=== PATIENT | female | born 1975 | race Caucasian/White ===

== ENCOUNTER 2019-12-31 08:03 | Emergency (ER) | payer SELFPAY ==
[~2019-12-31] VITALS: Ht 182.9 cm; Wt 86.2 kg
[~2019-12-31 08:03] MED LIST: EXCEDRIN; EXCEDRIN MIGRA1 EAC3; LEXAPRO; LEXAPRO10 MG PO; LISINOPRIL; LISINOPRIL-HCT1 EAC1 PO
[2019-12-31] MEDS ORDERED: MORPHINE SULFATE INJ 4 MG/ML INJ 1ML IV STA (08:17)
[2019-12-31] MEDS ORDERED: PANTOPRAZOLE 40 MG 10ML VIAL IV STA (08:17)
[2019-12-31] MEDS ORDERED: SODIUM CHLORIDE 0.9% 1000ML 1,000 ML IV STA ×2 (08:17→11:03)
[2019-12-31] MEDS ORDERED: ONDANSETRON HCL INJ 2MG/ML 2ML 2 MG/ML VIAL IV STA (08:17)
[2019-12-31] MEDS ORDERED: DIATRIZOATE MEGL/DIATRIZOA SOD 30 ML BTL PO ONE (08:48)
[2019-12-31 09:03] LABS: BASOPHILS % 0.4 % (0.0-1.0); EOSINOPHILS # (AUTO) 0.2 (0.0-0.4); EOSINOPHILS % 2.6 % (0.0-6.0); HEMATOCRIT 31.2 % (34.2-44.1); HEMOGLOBIN 8.1 g/dL (12.0-16.0); LYMPHOCYTES # (AUTO) 1.6 (1.0-3.2); LYMPHOCYTES % 18.1 % (18.0-39.1); MEAN CORPUSCULAR HEMOGLOBIN 17.2 pg (28-32); MEAN CORPUSCULAR VOLUME 66.2 fL (81-99); MONOCYTES # (AUTO) 0.5 (0.2-0.8); MONOCYTES % 5.5 % (4.4-11.3); NEUTROPHILS # (AUTO) 6.6 (2.1-6.9); NEUTROPHILS % 72.8 % (38.7-80.0); PLATELET COUNT 207 x10e3/uL (140-360); RED BLOOD COUNT 4.71 x10e6/uL (3.6-5.1); RED CELL DISTRIBUTION WIDTH 20.5 % (11.7-14.4)
[2019-12-31 09:12] LABS: INR 0.94
[2019-12-31 09:13] LABS: PARTIAL THROMBOPLASTIN TIME 29.8 seconds (23.8-35.5)
[2019-12-31 09:31] LABS: PREGNANCY TEST, URINE NEGATIVE (NEGATIVE)
--- NOTE | 2019-12-31 09:31 | Emergency Department Note ---
History of Present Illnes History of Present Illness Chief Complaint: Back Pain History of Present Illness This is a 44 year old female Patient in from home with complaints of back pain that radiates down both her legs, difficulty with urination, and abdominal distension for the last 3 days. Denies history of kidney stones. Patient reports that she tried to make an appointment with her PCP but was unable to get in to see him. Patient is anxious, tearful and emotional in triage. Patient ambulatory with even and steady gait without assistance. No acute distress noted. Historian: Patient Arrival Mode: Car Calculus Teacher Required: No Onset (how long ago): day(s) (3) Location: lower back, abdomen Quality: pain Radiation: Reports extremity (back pain to both legs) Severity: severe Onset quality: gradual Timing of current episode: constant Progression: worsening Chronicity: new Context: Denies recent illness Relieving factors: none Exacerbating factors: none Associated symptoms: Reports denies other symptoms; Denies chest pain, Denies cough, Denies shortness of breath, Denies weakness Treatments prior to arrival: NSAID (ibuprofen) Past Medical/Family History Physician Review I have reviewed the patient's past medical and family history. Any updates have been documented here. Past Medical History Recent Fever: No Clinical Suspicion of Infectio: Yes New/Unexplained Change in Ment: No Past Medical History: Migraines, Anxiety, Depression Other Medical History: IBS, endometriosis, polycystic ovarian, Past Surgical History: Cholecysctectomy Other Surgery: SINUS Social History Smoking Cessation: Never Smoker Counseling Performed: No Alcohol Use: None Any Illegal Drug Use: No TB Exposure/Symptoms: No Physically hurt or threatened: No Family History Family history of heart diseas: No Other Last Tetanus: OOD Any Pre-Existing Lines (PICC,: No Review of Systems Review of Systems Constitutional: Reports no symptoms EENTM: Reports no symptoms Cardiovascular: Reports no symptoms Respiratory: Reports no symptoms Gastrointestinal: Reports as per HPI, Reports abdominal pain, Reports other (distended) Genitourinary: Reports as per HPI, Reports other (difficulty urinating - says she has to "push it out") Musculoskeletal: Reports as per HPI, Reports back pain Integumentary: Reports no symptoms Neurological: Reports no symptoms Psychological: Reports no symptoms Endocrine: Reports no symptoms Hematological/Lymphatic: Reports no symptoms Physical Exam Related Data Allergies: Coded Allergies: tramadol (Verified Allergy, Severe, hives, 10/13/20) Penicillins (Verified Allergy, Mild, 01/31/08) ketorolac (Verified Allergy, Mild, 01/31/08) paroxetine (Verified Allergy, Mild, 01/31/08) prochlorperazine (Verified Allergy, Mild, 01/31/08) Triage Vital Signs Vital Signs Date Time Temp Pulse Resp B/P (MAP) Pulse Ox O2 Delivery O2 Flow Rate FiO2 12/31/19 08:05 97.8 111 18 186/108 100 Room Air Vital signs reviewed: Yes Physical Exam CONSTITUTIONAL HENT EYES NECK PULMONARY CARDIOVASCULAR GASTROINTESTINAL GENITOURINARY SKIN MUSCULOSKELETAL NEUROLOGICAL PSYCHOLOGICAL Results Laboratory Result Diagram: 12/31/19 0817 Laboratory Laboratory Tests Test 12/31/19 08:17 White Blood Count 9.07 x10e3/uL (4.8-10.8) Red Blood Count 4.71 x10e6/uL (3.6-5.1) Hemoglobin 8.1 g/dL (12.0-16.0) Hematocrit 31.2 % (34.2-44.1) Mean Corpuscular Volume 66.2 fL (81-99) Mean Corpuscular Hemoglobin 17.2 pg (28-32) Mean Corpuscular Hemoglobin Concent 26.0 g/dL (31-35) Red Cell Distribution Width 20.5 % (11.7-14.4) Platelet Count 207 x10e3/uL (140-360) Neutrophils (%) (Auto) 72.8 % (38.7-80.0) Lymphocytes (%) (Auto) 18.1 % (18.0-39.1) Monocytes (%) (Auto) 5.5 % (4.4-11.3) Eosinophils (%) (Auto) 2.6 % (0.0-6.0) Basophils (%) (Auto) 0.4 % (0.0-1.0) Neutrophils # (Auto) 6.6 (2.1-6.9) Lymphocytes # (Auto) 1.6 (1.0-3.2) Monocytes # (Auto) 0.5 (0.2-0.8) Eosinophils # (Auto) 0.2 (0.0-0.4) Basophils # (Auto) 0.0 (0.0-0.1) Absolute Immature Granulocyte (auto 0.05 x10e3/uL (0-0.1) Prothrombin Time 13.0 seconds (11.9-14.5) Prothromb Time International Ratio 0.94 Activated Partial Thromboplast Time 29.8 seconds (23.8-35.5) Lab results reviewed: Yes Imaging Imaging results reviewed: Yes Impressions CT ABD/PELVIS IMPRESSION: No acute intra-abdominal or pelvic CT abnormalities. No urolithiasis per clinical query. Greater than expected soft tissue density in the ascending colon at the ileocecal valve, which may reflect adherent stool. However, gastroenterology referral for direct visualization is suggested to exclude presence of a polypoid lesion. No adjacent lymphadenopathy or findings to suggest bowel obstruction. Signed by: Dr. Get Kramer M.D. on 12/31/2019 10:35 AM Assessment & Plan Medical Decision Making MDM BACK PAIN/ABD PAIN - CHECK CBC, CHEM, AMYLASE/LIPASE, CARDIACS, PREG, UA/CX, BLOOD CX'S, CT ABD/PELVIS - EVAL SCIATICA, PANCREATITIS, ABD MASS, OBSTIPATION, Reassessment Reassessment PT WITH MILD RHABDOMYOLYSIS - OFFERED ADMISSION, SHE DECLINES SO WILL GIVE 2 L NS BOLUS AND REPEAT CPP. DC HOME, TYL #3, MEDROL DOSE DEBORA, ROBAXIN, F/U PCP Assessment & Plan Final Impression: (1) Back pain Depart Disposition: HOME, SELF-CARE Last Vital Signs Date Time Temp Pulse Resp B/P (MAP) Pulse Ox O2 Delivery O2 Flow Rate FiO2 12/31/19 08:05 97.8 111 18 186/108 100 Room Air Home Meds Reported Medications Aspirin/Acetaminophen/Caffeine (EXCEDRIN MIGRAINE CAPLET) 1 Each Tablet 09/08/14 Lisinopril/Hydrochlorothiazide (LISINOPRIL-HCTZ 20-25 MG TAB) 1 Each Tablet, 20- 25 MG PO DAILY 09/08/14 Escitalopram Oxalate (LEXAPRO) 10 Mg Tablet, 20 MG PO DAILY, #30 TAB 09/08/14 Medications in the ED Pantoprazole Sodium 40 mg ONCE STAT IV Last administered on 12/31/19at 09:25; Admin Dose 40 MG; Start 12/31/19 at 08:17; Stop 12/31/19 at 08:37; Status DC Morphine Sulfate 4 mg ONCE STAT IV Last administered on 12/31/19at 09:25; Admin Dose 4 MG; Start 12/31/19 at 08:17; Stop 12/31/19 at 08:36; Status DC Ondansetron HCl 4 mg ONCE STAT IV Last administered on 12/31/19 09:26; Admin Dose 4 MG; Start 12/31/19 at 08:17; Stop 12/31/19 at 08:37; Status DC Sodium Chloride 1,000 ml @ 0 mls/hr Q0M STAT IV Last administered on 12/31/19at 09:26; Admin Dose 1,000 MLS/HR; Start 12/31/19 at 08:17; Stop 12/31/19 at 08:24; Status DC Diatrizoate Meglum/ Diatrizoate Sod 30 ml STK-MED ONCE PO ; Start 12/31/19 at 08:48; Stop 12/31/19 at 08:41; Status DC EAN MELTON MD Dec 31, 2019 09:31
[2019-12-31 09:32] LABS: ALANINE AMINOTRANSFERASE 25 IU/L (0-55); ALBUMIN 3.7 g/dL (3.5-5.0); ALBUMIN/GLOBULIN RATIO 1.1 (0.8-2.0); ALKALINE PHOSPHATASE 94 IU/L (40-150); AMPHETAMINES SCREEN,URINE NEGATIVE (NEGATIVE); AMYLASE 33 U/L (25-125); ANION GAP 14.6 mmol/L (8-16); BENZODIAZEPINES SCREEN,URINE POSITIVE (NEGATIVE); BLOOD UREA NITROGEN 9 mg/dL (7-26); BUN/CREATININE RATIO 10 (6-25); CALCIUM 8.9 mg/dL (8.4-10.2); CARBON DIOXIDE 28 mmol/L (22-29); CHLORIDE 102 mmol/L (98-107); CREATINE KINASE 1061 IU/L (29-168); CREATININE, SERUM 0.86 mg/dL (0.57-1.11); EST GLOMERULAR FILTRATION RATE > 60 ML/MIN (60-); GLUCOSE 119 mg/dL (74-118); LIPASE 25 U/L (8-78); MAGNESIUM 2.1 MG/DL (1.3-2.1); PHENCYCLIDINE SCREEN,URINE NEGATIVE (NEGATIVE); POTASSIUM 3.6 mmol/L (3.5-5.1); SODIUM 141 mmol/L (136-145)
--- NOTE | 2019-12-31 09:32 | Diagnostic Imaging Report ---
TECHNIQUE: Frontal view of the chest. INDICATION: ^ABD/BACK PAIN, LE EDEMA ^[id number] ^[id number] COMPARISON: None DISCUSSION: Limited evaluation due to portable technique. Lines and hardware: A wire is identified overlying the left hemithorax and continuing above the [id number] and inferior to the field of view. Heart and mediastinum: Stable. Lungs and pleura: No focal airspace consolidation. No pleural effusion. No pneumothorax. Soft tissues and bones: No acute abnormality. IMPRESSION: Negative for acute intrathoracic process. Signed by: Basim Richardson MD on 12/31/2019 9:29 AM
[2019-12-31 09:36] LABS: BILIRUBIN,URINE NEGATIVE (NEGATIVE); CLARITY,URINE CLEAR (CLEAR); COLOR,URINE YELLOW (YELLOW); KETONES,URINE NEGATIVE (NEGATIVE); LEUKOCYTE ESTERASE ,URINE NEGATIVE (NEGATIVE); NITRITE,URINE NEGATIVE (NEGATIVE); PROTEIN,URINE DIPSTICK NEGATIVE (NEGATIVE); URINE UROBILINOGEN 0.2 mg/dL (0.2 - 1)
[2019-12-31 09:38] LABS: EPITHELIAL CELLS,URINE RARE /LPF; RBC,URINE 0-5 /HPF (0-5); WBC,URINE (MAN) 0-5 /HPF (0-5)
--- NOTE | 2019-12-31 10:39 | Diagnostic Imaging Report ---
EXAMINATION: CT of the abdomen and pelvis with and without contrast. TECHNIQUE: Spiral CT images of the abdomen and pelvis were performed from the lung bases to the lesser trochanters before and after the intravenous administration of 100 cc Isovue-370. Coronal and sagittal reformatted images were obtained. COMPARISON: Chest radiograph same day CLINICAL HISTORY:Abdominal pain, back pain, dysuria DISCUSSION: ABDOMEN/PELVIS: LOWER THORAX:Trace subsegmental atelectasis in the dependent lower lobes. Lung bases are otherwise unremarkable. HEPATOBILIARY: No focal hepatic lesions. No intra-or extrahepatic biliary ductal dilation. The gallbladder has been removed. SPLEEN: No splenomegaly or focal splenic lesion. PANCREAS: No focal masses or ductal dilatation. ADRENALS: No adrenal nodules. KIDNEYS/URETERS: No hydronephrosis, calculi, or solid or cystic mass lesions. PELVIC ORGANS/BLADDER: Urinary bladder is well distended and unremarkable. Uterus is anteflexed and appears normal. No adnexal mass. PERITONEUM/RETROPERITONEUM: No ascites or pneumoperitoneum. LYMPH NODES: No pelvic sidewall, retroperitoneal, or mesenteric lymphadenopathy. VESSELS: Abdominal aorta, major branch vessels, and iliac arterial systems are patent. Portal vein, splenic vein, and central superior mesenteric vein are patent. GI TRACT: The large bowel shows no evidence of distention or wall thickening. A large amount of fecal material is noted within the descending and sigmoid colon. The appendix is unremarkable. There is greater than expected soft tissue prominence at the region of the ileocecal valve, which measures approximately 4 x 3.6 cm as seen on series 3 image 107. There is no small bowel dilatation to suggest obstruction. BONES AND SOFT TISSUE: No osseous destructive lesions. Degenerative disc changes and facet arthropathy L5-S1. Electronic device body lies in the left gluteal subcutaneous fat. Lead courses through the fat of the lower back to the left of midline before terminating off the scan field. Otherwise no focal soft tissue abnormalities. IMPRESSION: No acute intra-abdominal or pelvic CT abnormalities. No urolithiasis per clinical query. Greater than expected soft tissue density in the ascending colon at the ileocecal valve, which may reflect adherent stool. However, gastroenterology referral for direct visualization is suggested to exclude presence of a polypoid lesion. No adjacent lymphadenopathy or findings to suggest bowel obstruction. Signed by: Dr. Get Kramer M.D. on 12/31/2019 10:35 AM
--- OUTSIDE RECORDS SUMMARY | 2019-12-31 10:49 | XMS REPORT | Continuity of Care Document ---
Author Author [facility] t Organization [facility] Address [address] [place] [address] Phone Unavailable Care Team Providers Care Press Leader Name Role Phone GERONIMO Gaurang EAN Attphys Unavailable Aliya Vigil Attphys Doctor Unassigned, Name No Attphys Unavailable Ari Wahl Attphys Larry Whitten Attphys [phone] Koby Geronimo Attphys Payers Payer Name Policy Type Policy Number Effective Date Expiration Date S ource Problems Condition Name Condition Details Condition Category Status Onset Date Resolution Date Last Treatment Date Treating Clinician Comments Source ABD PAIN ABD PAIN Active 03/02/2016 [facility] [place] Diagnosis Active 2016-03-02 00:00:00 2016-03-26 06:18:00 Chyna Marshall FALL FALL Active 07/22/2012 [facility] Diagnosis Active 2012-07-22 00:00:00 2012-07-22 15:55:00 [facility] MRSA MRSA Active 06/09/2011 Problem 07/24/2012 1MRSA in groin abscess on 06/09/2011.2MRSA PCR+ on 06/09/2011.3Problem added by Discern Expert. [facility] Problem Active 2011-06-09 00:00:00 2012-07-24 20:58:59 [facility] Methicillin resistant Staphylococcus aureus (organism) Methicillin resistant Staphylococcus aureus (organism) Active 06/09/2011 Problem 03/05/2016 MRSA in groin abscess on 06/09/2011.MRSA PCR+ on 06/09/2011.Problem added by Discern Expert. [facility] Problem Active 2011-06-09 00:00:00 2016-03-05 04:47:26 [facility] MULTIPLE ABSCESSES MULT IPLE ABSCESSES Active 06/09/2011 [facility] Diagnosis Active 2011-06-09 00:00:00 2011-06-10 19:36:00 [facility] CELLULITIS, ABSCESS CELL ULITIS, ABSCESS Active 06/08/2011 [facility] Diagnosis Active 2011-06-08 00:45:00 2011-06-21 21:50:00 [facility] Insomnia (disorder) Inso mnia (disorder) Active 09/23/2008 Problem 03/05/2016 Data migrated from [employer] on 08/19/14.Data migrated from [employer] on 08/19/14. [facility] Problem Active 2008-09-23 00:00:00 2016-03-05 04:47:26 [facility] Cervico-occipital neuralgia (finding) Cervico-occipital neuralgia (finding) Active 06/02/2008 Problem 03/05/2016 Data migrated from [employer] on 08/19/14.Data migrated from [employer] on 08/19/14. [facility] Problem Active 2008-06-02 00:00:00 2016-03-05 04:47:26 [facility] Chronic pain syndrome (disorder) Chronic pain syndrome (disorder) Active 06/02/2008 Problem 03/05/2016 Data migrated from [employer] on 08/19/14.Data migrated from [employer] on 08/19/14. [facility] Problem Active 2008-06-02 00:00:00 2016-03-05 04:47:26 Chyna Marshall Endometriosis (disorder) Endo metriosis (disorder) Resolved Problem 03/05/2016 [facility] Problem Resolved 2016-03-05 04:47:26 Chyna Marshall Migraine (disorder) Migr shelia (disorder) Resolved Problem 03/05/2016 [facility] Problem Resolved 2016-03-05 0 4:47:26 Chyna Marshall Anxiety Anxi ety Active Problem 07/24/2012 [facility] Problem Active 2012-07-24 20:58:59 [facility] Rol[place] Depression Depr ession Active Problem 07/24/2012 [facility] Problem Active 2012-07-24 20:58:59 Ma morial [place] Endometriosis Endo metriosis Active Problem 06/18/2011 [facility] Problem Active 2011-06-18 08:36:30 Chyna Marshall HTN - Hypertension HTN - Hypertension Active Problem 06/18/2011 [facility] Problem Active 2011-06-18 08:36:30 Chyna Looann Irritable bowel syndrome Irri table bowel syndrome Active Problem 07/24/2012 [facility] Problem Active 2012-07-24 20:58:5 9 Chyna Marshall Endometriosis Endo metriosis Active Problem 07/24/2012 [facility] Problem Active 2012-07-24 20:58:59 Chyna Marshall HTN - Hypertension HTN - Hypertension Active Problem 07/24/2012 [facility] Problem Active 2012-07-24 20:58:59 Chyna Marshall 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 [facility] Problem Active 2016-03-05 04:47:26 Sadie Marshall Benign hypertension (disorder) Benign hypertension (disorder) Active Problem 03/05/2016 Data migrated from [employer] on 08/19/14.Data migrated from [employer] on 08/19/14. [facility] Problem Active 2016-03-05 04:47:26 Zhen Marshall Depression (finding) Depr ession (finding) Active Problem 03/05/2016 [facility] Problem Active 2016-03-05 04:47:26 Chyna Marshall Depressive disorder (disorder) Depressive disorder (disorder) Active Problem 03/05/2016 Data migrated from [employer] on 08/19/14.Data migrated from [employer] on 08/19/14. [facility] Problem Active 2016-03-05 04:47:26 Zhen Marshall Headache (finding) Head ache (finding) Active Problem 03/05/2016 Data migrated from [employer] on 08/19/14.Data migrated from [employer] on 08/19/14. [facility] Problem Active 2016-03-05 04:47:26 Chyna Marshall Hypertensive disorder, systemic arterial (disorder) Hypertensive disorder, systemic arterial (disorder) Active Problem 03/05/2016 [facility] Problem Active 2016-03-05 04:47:26 Chyna Marshall Irritable colon (disorder) Irr itable colon (disorder) Active Problem 03/05/2016 [facility] Problem Active 2016-03-05 04:47:26 [facility] [address] CELLULITIS NOS CELL ULITIS NOS Active [facility] Diagnosis Active 2011-06-21 21:50:00 Chyna Marshall SOB SOB Active [facility] Diagnosis Active 2015-04-30 15:33:00 [facility] Discharge Diagnosis: Acute headache Discharge Diagnosis: Acute headache 03/02/2016 03/05/2016 [facility] Problem 2016-03-02 06:00:00 2016-03-05 04:47:26 2016-03-05 04:47:26 Denise Marshall Allergies, Adverse Reactions, Alerts Allergy Name Allergy Type Status Severity Reaction(s) Onset Date Inacti ve Date Treating Clinician Comments Source prochlorperazine edisylate DA Active MO 2019-05-22 00:00:0 0 [facility] prochlorperazine maleate DA Active MO 2019-05-22 00:00:00 [facility] ketorolac tromethamine DA Active U 2019-05-22 00:00:00 [facility] Penicillins DA Active MO 2019-05-22 00:00:00 [facility] aspirin DA Active MO 2019-05-22 00:00:00 [facility] tramadol DA Active U 2019-05-22 00:00:00 [facility] metoclopramide DA Active U 2019-05-22 00:00:00 [facility] prochlorperazine edisylate DA Active MO 2017-09-27 00:00:0 [facility] pro[facility] maleate DA Active MO 2017-09-27 00:00:00 [facility] ketorolac tromethamine DA Active U 2017-09-27 00:00:00 [facility] Penicillins DA Active MO 2017-09-27 00:00:00 [facility] aspirin DA Active [place] 2017-09-27 00:00:00 [facility] tramadol DA Active U 2017-09-27 00:00:00 [facility] metoclopramide DA Active U 2017-09-27 00:00:00 [facility] fentaNYL<sup>2</sup> fentaNYL<sup>2</sup> Active 2008-06-25 05:00:00 [facility] aspirin<sup>1</sup> aspirin<sup>1</sup> Active 2008-06-02 0 5:00:00 [facility] HYDROmorphone<sup>3</sup> HYDROmorphone<sup>3</sup> Active 2008-06-02 05:00:00 [facility] morphine<sup>5</sup> morphine<sup>5</sup> Active 2008-06-02 05:00:00 [facility] penicillins<sup>6, 7</sup> penicillins<sup>6, 7</sup> Active 2008-05-18 00:00:00 [facility] penicillins<sup>3, 4</sup> penicillins<sup>3, 4</sup> Active 2008-05-18 00:00:00 [facility] penicillins penicillins Active Moderate 2004-06-18 00:00:00 [facility] aspirin aspirin Active [facility] Social History Smoking Status Start Date Stop Date Source Social History [facility] Medications Ordered Medication Name Filled Medication Name Start Date Stop Da te Current Medication? Ordering Clinician Indication Dosage Frequency Signature (SIG) Comments Components Source Promethazine 2016-03-02 20:23:00 No 6.25 mg, Route: IVPB, ONCE, Dosing Weight 80.909, kg, Priority: STAT, Start date: 03/02/16 14:23:00 REHABILITATION MANAGER, Stop date: 03/02/16 14:23:00 REHABILITATION MANAGER Cyn Marshall Dilaudid 2016-03-02 20:20:00 No 0.5 mg, Route: IVP, ONCE, Dosing Weight 80.909, kg, Priority: STAT, Start date: 03/02/16 14:20:00 REHABILITATION MANAGER, Stop date: 03/02/16 14:20:00 [facility] Reglan 2016-03-02 17:39:00 No 10 mg, Route: IVP, Drug form: INJ, ONCE, Dosing Weight 80.909, kg, Priority: STAT, Start date: 03/02/16 11:39:00 REHABILITATION MANAGER, Stop date: 03/02/16 11:39:00 REHABILITATION MANAGER [facility] Benadryl 2016-03-02 17:22:00 No 25 mg, Route: IVP, ONCE, Dosing Weight 80.909, kg, Priority: STAT, Start date: 03/02/16 11:22:00 REHABILITATION MANAGER, Stop date: 03/02/16 11:22:00 [facility] Ondansetron 2016-03-02 17:21:00 No 4 mg, Route: IVP, Drug form: INJ, ONCE, Dosing Weight 80.909, kg, Priority: STAT, Start date: 03/02/16 11:21:00 REHABILITATION MANAGER, Stop date: 03/02/16 11:21:00 REHABILITATION MANAGER [facility] Morphine 2016-03-02 17:21:00 No 4 mg, Route: IVP, ONCE, Dosing Weight 80.909, kg, Priority: STAT, Start date: 03/02/16 11:21:00 REHABILITATION MANAGER, Stop date: 03/02/16 11:21:00 [facility] lisinopril 20 mg oral tablet 2016-03-02 16:49:00 Yes 20 mg = 1 tab, PO, Daily, # 30 tab, 0 Refill(s) Cyn Looann Imitrex 2016-03-02 16:48:00 Yes ONCE, 0 Refi ll(s) Chyna Marshall Morphine 2015-10-09 22:54:00 No 4 mg, Route: IVP, Drug form: INJ, ONCE, Dosing Weight 81.818, kg, Priority: STAT, Start date: 10/09/15 17:54:00 CDT, Stop date: 10/09/15 17:54:00 CDT Ma elva Marshall Levsin 2015-10-09 21:11:00 No 0.25 mg, Route: IV, ONCE, Dosing Weight 81.818, kg, Start date: 10/09/15 16:11:00 CDT, Stop date: 10/09/15 16:11:00 CDT Chyna Marshall Phenergan 2015-10-09 20:31:00 No Notes: Do not give IV push. (Same as: Phenergan) Chyna Marshall Bentyl 2015-10-09 19:38:00 No Notes: (Same as: Bentyl) Chyna Marshall Ondansetron 2015-10-09 19:38:00 No Notes: (Same as: Zofran) MEDICATION WASTE Product Size: 4 mg Product Wasted: ___ mg Chyna [place] Saline Flush 0.9% 2015-10-09 19:38:00 No Notes: (Same as: BD Posiflush) Chyna Marshall Sodium Chloride 0.154 MEQ/ML Injectable Solution 2015-10-09 19:3 8:00 No 1,000 mL, 2,000 ml/hr, Infus e Over: 30 minutes, Route: IV, 1,000, Drug form: INJ, ONCE, Priority: STAT, Dosing Weight 81.818 kg, Start date: 10/09/15 14:38:00 CDT, Duration: 1 doses or times, Stop date: 10/09/15 14:38:00 CDT [facility] [place] Robaxin 500 mg oral tablet 2012-07-22 23:30:36 Yes I solde Sasam Aguhar 1,000 mg, 2 tab, PO, QID, 56 tab, Substitution Allowed, TAB [facility] Ultracet oral tablet 2012-07-22 23:30:21 Yes Kalide Sasa m Aguhar 1 tab, PO, Q4H, PRN, 20 tab, for pain, Substitution Allowed, Maintenance, TAB [facility] [place] morphine Sulfate 2012-07-22 23:29:00 No Isolde Sasam Ag uhar 2 mg, Route: IM, Drug form: INJ, ONCE, Dosing Weight 90, kg, Priority: STAT, Start date: 07/22/12 18:29:00, Stop date: 07/22/12 18:29:00 [facility] [place] orphenadrine 2012-07-22 20:51:00 No Isolde Sasam Aguhar 60 mg, Route: IM, ONCE, Dosing Weight 90, kg, Priority: STAT, Start date: 07/22/12 15:51:00, Stop date: 07/22/12 15:51:00 [facility] rmann morphine Sulfate 2012-07-22 20:51:00 No Isolde Sasam Ag uhar 4 mg, 2 mL, Route: IM, Drug form: INJ, ONCE, Dosing Weight 90, kg, Priority: STAT, Start date: 07/22/12 15:51:00, Stop date: 07/22/12 15:51:00 [facility] ondansetron 4 mg oral tablet, disintegrating 2012-07-22 20 :51:00 No Isolde Sasam Aguhar 4 mg, 1 tab, Rou te: PO, Drug form: TABDIS, ONCE, Dosing Weight 90, kg, Priority: STAT, Start date: 07/22/12 15:51:00, Stop date: 07/22/12 15:51:00 [facility] [place] zinc sulfate 220 mg oral capsule 2011-06-14 18:02:40 Yes Hunter Gay Prieto 220 mg, 1 cap, PO, BID, 30 cap, Substitution Allowed, Maintenance, CAP [facility] Bactrim DS oral tablet 2011-06-14 18:02:35 Yes Hunter Alberto c Prieto 1 tab, PO, [id number], 28 tab, Substitution Allowed, Maintenance, TAB [facility] potassium chloride 20 mEq oral tablet, extended release 2011-06-14 18:02:27 Yes Hunter Albertoc Prieto 20 mEq, 1 ta b, PO, Daily, 30 tab, Substitution Allowed, ERTAB [facility] Bactroban 2% nasal ointment w/applicator 2011-06-14 18:02: 21 Yes Harrison Deidra Prieto 1 appl, NASAL, BID, 15 gm, Substitution Allowed, OINT/A Chyna Marshall ferrous sulfate 325 mg oral enteric coated tablet 18:02:15 Yes Harrison Deidra Prieto 325 mg, 1 tab, P O, TID, 100 tab, Substitution Allowed, ECTAB Chyna Marshall doxycycline hyclate 100 mg oral tablet 2011-06-14 18:02:08 Yes Hunter Deidra Prieto 100 mg, 1 tab, PO, [id number], 30 tab, Subs titution Allowed, TAB [facility] [place] Colace 100 mg oral capsule 2011-06-14 18:01:55 Yes Harrison Deidra Prieto 100 mg, 1 cap, PO, BID, 30 cap, Substitution Allowed, CAP Chyna Marshall Vitamin C 500 mg oral tablet 2011-06-14 18:01:50 Yes Lisa albert Deidra Prieto 500 mg, 1 tab, PO, BID, 30 tab, Substitution Allowed, TAB Chyna [place] acetaminophen-hydrocodone 325 mg-5 mg oral tablet 18:01:39 Yes Harrison Deidra Prieto 1 tab, PO, Q6H, PRN, 24 tab, Pain, Substitution Allowed, Maintenance, TAB [facility] [place] Bactroban 2% nasal ointment w/applicator 2011-06-13 22:00: 00 No Harrison Deidra Prieto 1 appl, Route: N FRED, BID, Drug form: OINT/A, Start date: 06/13/11 17:00:00, Duration: 5 day, Stop date: 06/18/11 9:00:00 Chyna Looann Colace 100 mg oral capsule 2011-06-13 22:00:00 No Harrison Deidra Prieto 100 mg, 1 cap, Route: PO, Drug form: CAP, BID, Start date: 06/13/11 17:00:00, Duration: 30 day, Stop date: 07/13/11 9:00:00 [facility] [place] ferrous sulfate 2011-06-13 18:00:00 No Harrison Deidra Prieto 325 mg, 1 tab, Route: PO, Drug form: ECTAB, TID, Start date: 06/13/11 13:00:00, Duration: 30 day, Stop date: 07/13/11 9:00:00 Cyn Marshall Bactrim DS 2011-06-13 17:00:00 No Harrison Deidra Prieto 1 tab, Route: PO, Drug Form: TAB, [id number], Start date: 06/13/11 12:00:00, Duration: 10 day, Stop date: 06/23/11 0:00:00 [facility] doxycycline 2011-06-13 17:00:00 No Harrison Deidra Prieto 100 mg, 1 tab, Route: PO, Drug form: TAB, [id number], Start date: 06/13/11 12:00:00, Duration: 30 day, Stop date: 07/13/11 0:00:00 [facility] potassium chloride 2011-06-13 16:40:00 No Hunter Albertoc Ph am 20 mEq, 1 tab, Route: PO, Drug form: ERTAB, ONCE, Start date: 06/13/11 11:40:00, Stop date: 06/13/11 11:40:00 [facility] magnesium sulfate 2011-06-13 16:39:00 No Hunter Albertoc Pha m 1 gm, 100 mL, Route: IVPB, Drug form: INJ, ONCE, Start date: 06/13/11 11:39:00, Stop date: 06/13/11 11:39:00 [facility] Dilaudid 2011-06-13 14:00:00 No Surinder Vera Marcela 2 mg, 1 mL, Route: IVP, Drug form: INJ, Daily, Start date: 06/13/11 9:00:00, Duration: 30 day, Stop date: 07/12/11 9:00:00 [facility] Dilaudid 2011-06-12 18:33:00 No Harrison Deidra Prieto 4 mg, 2 mL, Route: IM, Drug form: INJ, ONCE, Start date: 06/12/11 13:33:00, Stop date: 06/12/11 13:33:00 [facility] acetaminophen-hydrocodone 325 mg-5 mg oral tablet 17:49:00 No Kenny Ritter 1 tab, Route: PO , Drug Form: TAB, Q6H, PRN Pain, Start date: 06/12/11 12:49:00, Stop date: 07/12/11 12:48:00 [facility] acetaminophen-hydrocodone 325 mg-5 mg oral tablet 17:48:00 No Kenny Obregonner 2 tab, Route: PO , Drug Form: TAB, Q6H, PRN Pain, Start date: 06/12/11 12:48:00, Stop date: 07/12/11 12:47:00 [facility] Dilaudid 2011-06-11 19:49:00 No Kamar Chayito Xiomara 2 mg, 1 mL, Route: IVP, Drug form: INJ, Q3H, PRN Pain, Start date: 06/11/11 14:49:00, Duration: 30 day, Stop date: 07/11/11 14:48:00 Donnell Lindo potassium chloride 2011-06-11 14:00:00 No Hunter Albertoc Ph am 20 mEq, 1 tab, Route: PO, Drug form: ERTAB, Daily, Start date: 06/11/11 9:00:00, Duration: 30 day, Stop date: 07/10/11 9:00:00 Zhen Marshall zinc sulfate 2011-06-10 22:00:00 No Hunter Deidra Prieto 220 mg, 1 cap, Route: PO, Drug form: CAP, BID, Start date: 06/10/11 17:00:00, Duration: 30 day, Stop date: 07/10/11 9:00:00 [facility] Vitamin C 2011-06-10 22:00:00 No Harrison Deidra Prieto 500 mg, 1 tab, Route: PO, Drug form: TAB, BID, Start date: 06/10/11 17:00:00, Duration: 30 day, Stop date: 07/10/11 9:00:00 [facility] Lexapro 2011-06-10 02:00:00 No Mario Religion Jackson 20 mg, 1 tab, Route: PO, Drug form: TAB, Bedtime, Start date: 06/09/11 21:00:00, Duration: 30 day, Stop date: 07/08/11 21:00:00 Donnell Lindo lidocaine 1% 2011-06-09 22:00:00 No Scott Vu Maninder 0.5 mL, Route: SUB- Q, ONCALL, Start date: 06/09/11 17:00:00, Duration: 1 doses or times [facility] enoxaparin 2011-06-09 22:00:00 No Kenny Whalen Ritter 40 mg, 0.4 mL, Route: SUB-Q, Drug form: INJ, [id number], Start date: 06/09/11 17:00:00, Duration: 30 day, Stop date: 07/08/11 17:00:00 Donnell [facility] flumazenil 2011-06-09 21:55:00 No Scott Vu Maninder 0.2 mg, 2 mL, Route: IVP, Drug form: INJ, PRN, PRN Benzodiazepine Reversal, Initial dose, Start date: 06/09/11 16:55:00, Duration: 30 day, Stop date: 07/09/11 16:54:00 [facility] fentanyl 2011-06-09 21:55:00 No Scott Vu Maninder 25 microgram, 0.5 mL, Route: IVP, Drug form: INJ, Q5Min, PRN Pain Score 4-6, Start date: 06/09/11 16:55:00, Duration: 4 doses or times, Stop date: Limited # of times [facility] hydromorphone 2011-06-09 21:55:00 No Scott Vu Maninder 0.5 mg, 0.25 mL, Route: IVP, Drug form: INJ, Q5Min, PRN Pain Score 4-6, Start date: 06/09/11 16:55:00, Duration: 5 doses or times, Stop date: Limited # of times [facility] meperidine 2011-06-09 21:55:00 No Scott Vu Maninder 12.5 mg, 0.25 mL, Route: IVP, Drug form: INJ, Q30Min, PRN Other -See Comment, For shivering, Start date: 06/09/11 16:55:00, Duration: 2 doses or times, Stop date: Limited # of times [facility] acetaminophen-hydrocodone 325 mg-5 mg oral tablet 21:55:00 No Scott Vu Maninder 1 tab, Route: PO , Drug Form: TAB, Q4H, PRN Pain Score 1-3, Start date: 06/09/11 16:55:00, Duration: 30 day, Stop date: 07/09/11 16:54:00 [facility] ondansetron 2011-06-09 21:55:00 No Scott Vu Maninder 4 mg, Route: IVP, ONCE, PRN Nausea & Vomiting, Start date: 06/09/11 16:55:00 [facility] naloxone 2011-06-09 21:55:00 No Scott Vu Maninder 0.04 mg, 0.1 mL, Route: IVP, Drug form: INJ, Q2MIN, PRN Narcotic Reversal, Start date: 06/09/11 16:55:00, Duration: 8 doses or times, Stop date: Limited # of times [facility] Ativan 2011-06-09 21:53:00 No Kenny B Ritter 1 mg, 0.5 mL, Route: IVP, Drug form: INJ, Q8H, PRN as needed for anxiety, Start date: 06/09/11 16:53:00, Duration: 30 day, Stop date: 07/09/11 16:52:00 [facility] morphine Sulfate 2011-06-09 21:53:00 No Kenny B Ritter 2 mg, 1 mL, Route: IVP, Drug form: INJ, Q2H, PRN Pain, Start date: 06/09/11 16:53:00, Duration: 30 day, Stop date: 07/09/11 16:52:00 [facility] Zofran 2011-06-09 21:53:00 No Kenny B Ritter 4 mg, 2 mL, Route: IVP, Drug form: INJ, Q6H, PRN Nausea, Start date: 06/09/11 16:53:00, Duration: 30 day, Stop date: 07/09/11 16:52:00 Donnell Lindo Lactated Ringers Injection IV 1,000 mL 2011-06-09 21:16:00 No Harrison Deidra Prieto 1,000 mL, Rate: 25 ml/hr, Infuse over: 40 hr, Route: IV, Dosing Weight 96.364 kg, Total Volume: 1,000, Start date: 06/09/11 16:16:00, Duration: 30 day, Stop date: 07/09/11 16:15:00 Minerva Marshall meperidine 2011-06-09 16:11:00 No Hunter Deidra Prieto 50 mg, 1 mL, Route: IVPB, Drug form: INJ, Q4H, PRN Pain, Start date: 06/09/11 11:11:00, Duration: 4 day, Stop date: 06/13/11 11:10:00 Donnell Lindo ciprofloxacin 2011-06-09 16:00:00 No Harrison Deidra Prieto 400 mg, 200 mL, Route: IVPB, Drug form: INJ, [id number], Start date: 06/09/11 11:00:00, Duration: 30 day, Stop date: 07/08/11 23:00:00 [facility] jamar Rolando clindamycin 2011-06-09 16:00:00 No Harrison Deidra Prieto 900 mg, 6 mL, Route: IVPB, Drug form: INJ, [id number], Start date: 06/09/11 11:00:00, Duration: 30 day, Stop date: 07/09/11 3:00:00 Cyn Marshall D5W 1/2NS + KCL 20mEq/L 1000ml (Premix) 1,000 mL 2011-05-20 2 15:23:00 No Harrison Deidra Prieto 1,000 mL, Rate: 125 ml/hr, Infuse over: 8 hr, Route: IV, Dosing Weight 96.364 kg, Total Volume: 1,000, Start date: 06/09/11 10:23:00, Duration: 30 day, Stop date: 07/09/11 10:22:00 [facility] Demerol HCl 2011-06-09 15:22:00 No Harrison Deidra Prieto 50 mg, 1 mL, Route: IV, Drug form: INJ, Q4H, PRN as needed for pain, Start date: 06/09/11 10:22:00, Duration: 4 day, Stop date: 06/13/11 10:21:00 [facility] vancomycin 2011-06-09 14:00:00 No Harrison Deidra Prieto 1.5 gm, 500 mL, Route: IVPB, Drug form: SOLN, Q12H, Start date: 06/09/11 9:00:00, Stop date: 07/08/11 21:00:00 [facility] Prinivil 2011-06-09 14:00:00 No Mario Paz 20 mg, 1 tab, Route: PO, Drug form: TAB, Daily, Start date: 06/09/11 9:00:00, Duration: 30 day, Stop date: 07/08/11 9:00:00 Cyn swann Rolando hydrochlorothiazide 25 mg oral tablet 2011-06-09 14:00:00 No Mario Woodall Jackson 25 mg, 1 tab, Ro susanna: PO, Drug form: TAB, Daily, Start date: 06/09/11 9:00:00, Duration: 30 day, Stop date: 07/08/11 9:00:00 [facility] Tylenol 2011-06-09 11:55:00 No Mario Camejoian Jackson 650 mg, 2 tab, Route: PO, Drug form: TAB, Q4H, PRN Fever, Start date: 06/09/11 6:55:00, Duration: 30 day, Stop date: 07/09/11 6:54:00 [facility] Phenergan 2011-06-09 11:54:00 No Mario Woodall Jackson 12.5 mg, 0.5 mL, Route: IVPB, Q3H, PRN Nausea & Vomiting, Start date: 06/09/11 6:54:00, Duration: 30 day, Stop date: 07/09/11 6:53:00 [facility] hydromorphone 2011-06-09 11:52:00 No Harrison Deidra Prieto 1 mg, 1 mL, Route: IVP, Drug form: SOLN, Q3H, PRN Pain, Start date: 06/09/11 6:52:00, Duration: 30 day, Stop date: 07/09/11 6:51:00 [facility] Sodium Chloride 0.9% IV 1,000 mL 2011-06-09 11:47:00 No Harrison Deidra Prieto 1,000 mL, Rate: 80 ml/hr, Infuse over: 1 2.5 hr, Route: IV, Dosing Weight 96.364 kg, Total Volume: 1,000, Start date: 06/09/11 6:47:00, Duration: 30 day, Stop date: 07/09/11 6:46:00 [facility] hydrochlorothiazide-lisinopril 25 mg-20 mg oral tablet 2011-06-09 11:13:37 Yes 1 tab, PO, Daily, 30 tab, Subs titution Allowed, Maintenance, TAB [facility] Vital Signs Vital Name Observation Time Observation Value Comments Source Systolic (mm Hg) 2016-03-02 22:26:00 Zhen rial [place] Diastolic (mm Hg) 2016-03-02 22:26:00 Mem orial [place] Heart Rate 2016-03-02 22:26:00 [facility] [place] Respitory Rate 2016-03-02 22:26:00 Mem[facility] Temperature Oral (F) 2016-03-02 22:26:00 98.1 F [facility] Heart Rate 2016-03-02 18:13:00 [facility] Systolic (mm Hg) 2016-03-02 18:13:00 Zhen rial [place] Diastolic (mm Hg) 2016-03-02 18:13:00 [facility] Respitory Rate 2016-03-02 18:13:00 [facility] [place] Height 2016-03-02 16:24:00 182.88 cm [facility] Weight 2016-03-02 16:24:00 [facility] [place] BMI Calculated 2016-03-02 16:24:00 [facility] [place] Heart Rate 2016-03-02 16:24:00 [facility] [place] Systolic (mm Hg) 2016-03-02 16:24:00 [facility] [place] Diastolic (mm Hg) 2016-03-02 16:24:00 [facility] Temperature Oral (F) 2016-03-02 16:24:00 98.6 F [facility] [place] [facility] Respitory Rate 2016-03-02 16:24:00 [facility] Systolic (mm Hg) 2015-10-10 00:00:00 [facility] [place] Diastolic (mm Hg) 2015-10-10 00:00:00 [facility] Temperature Oral (F) 2015-10-10 00:00:00 99.1 F [facility] [place] Heart Rate 2015-10-10 00:00:00 [facility] [place] Respitory Rate 2015-10-10 00:00:00 [facility] [place] Weight 2015-10-09 20:23:00 [facility] Temperature Oral (F) 2015-10-09 19:02:00 98.1 F [facility] Weight 2015-10-09 19:02:00 [facility] [place] Respitory Rate 2015-10-09 19:02:00 [facility] [place] Heart Rate 2015-10-09 19:02:00 [facility] [place] Systolic (mm Hg) 2015-10-09 19:02:00 [facility] Diastolic (mm Hg) 2015-10-09 19:02:00 [facility] [place] Weight 2012-07-22 20:09:00 [facility] [place] Height 2012-07-22 20:09:00 180.34 cm [facility] Heart Rate 2011-06-16 13:00:00 [facility] Temperature Oral (F) 2011-06-16 13:00:00 98.4 F [facility] Respitory Rate 2011-06-16 13:00:00 [facility] [place] Systolic (mm Hg) 2011-06-16 13:00:00 [facility] [place] Diastolic (mm Hg) 2011-06-16 13:00:00 [facility] [place] Diastolic (mm Hg) 2011-06-16 09:00:00 [facility] Systolic (mm Hg) 2011-06-16 09:00:00 [facility] Temperature Oral (F) 2011-06-16 09:00:00 98.9 F [facility] Heart Rate 2011-06-16 09:00:00 [facility] Respitory Rate 2011-06-16 09:00:00 [facility] Heart Rate 2011-06-16 05:00:00 [facility] Temperature Oral (F) 2011-06-16 05:00:00 98.5 F [facility] Respitory Rate 2011-06-16 05:00:00 [facility] [place] Diastolic (mm Hg) 2011-06-16 05:00:00 [facility] Systolic (mm Hg) 2011-06-16 05:00:00 [facility] [place] Height 2011-06-09 09:54:00 182.88 cm [facility] Weight 2011-06-09 09:54:00 [facility] [place] Weight 2011-06-09 09:35:00 [facility] [place] Height 2011-06-09 09:35:00 182.88 cm [facility] Procedures Procedure Date / Time Performed Performing Clinician Sourc e Cholecystectomy [facility] Encounters Start Date/Time End Date/Time En[facility] Source 2019-05-15 06:31:00 2019-05-15 23:59:00 Hospital Encounter Aliya Nolan [facility] [id number] 2019-05-08 00:00:00 2019-05-08 00:00:00 Patient Secure Msg Doctor Unassigned, [facility] [id number] 2019-05-06 10:00:50 2019-05-06 11:42:47 Office Visit Dinora azevedoAliya [facility] CPR INSTRUCTOR [facility] [id number] 2016-03-02 10:22:00 2016-03-02 16:53:00 Outpatient Naun Ward [facility] [id number] 2015-10-09 13:44:00 2015-10-09 19:35:00 Outpatient Uriah Black [facility] [id number] 2015-04-30 15:12:00 2015-04-30 15:12:00 Outpatient Quita Geronimo [facility] [id number] Results Test Description Test Time Test Comments Results Result Comments Source CT ABDOMEN/PELVIS WO 2019-12-31 10:23:00 [place] [address] Patient Name: UZMA REED MR #: [id number] : 1975 Age/Sex: 44/F Req #: [id number] Adm Physician: Ordered by: EAN MELTON MD Report #: [id number] Location: ER Room/Bed: Procedure: [id number] CT/CT ABDOMEN/PELVIS WOW Exam Date: 12/31/19 Exam Time: 0950 REPORT STATUS: Signed EXAMINATION: CT of the abdomen and pelvis with and without contrast. TECHNIQUE: Spiral CT images of the abdomen and pelvis were performed from the lung bases to the lesser trochanters before and after the intravenous administration of 100 cc Isovue-3 70. Coronal and sagittal reformatted images were obtained. COMPARISON: Chest radiograph same day CLINICAL HISTORY:Abdominal pain, back pain, dysuria DISCUSSION: ABDOMEN/PELVIS: LOWER THORAX:Trace subsegmental atelectasis in the dependent lower lobes. Lung bases are otherwise unremarkable. HEPATOBILIARY: No focal hepatic lesions. No intra- or extrahepatic biliary ductal dilation. The gallbladder has been removed. SPLEEN: No splenomegaly or focal splenic lesion. PANCREAS: No focal masses or ductal dilatation. ADRENALS: No adrenal nodules. KID NEYS/URETERS: No hydronephrosis, calculi, or solid or cystic mass lesions. PELVIC ORGANS/BLADDER: Urinary bladder is well distended and unremarkable. Uterus is anteflexed and appears normal. No adnexal mass. PERITONEUM/RETROPERITONEUM: No ascites or pneumoperitoneum. LYMPH NODES: No pelvic sidewall, retroperitoneal, or mesenteric lymphadenopathy. VESSELS: Abdominal aorta, major branch vessels, and iliac arterial systems are patent. Portal vein, splenic vein, and central superior mesenteric vein are patent. GI TRACT: The large bowel shows no evidence of distention or wall thickening. A large amount of fecal material is noted within the descending and sigmoid colon. The appendix is unremarkable. There is greater than expected soft tissue prominence at the region of the ileocecal valve, which measures approximately 4 x 3.6 cm as seen on series 3 image 107. There is no small bowel dilatation to suggest obstruction. BONES AND SOFT TISSUE: No osseous destructive lesions. Degenerative disc changes and facet arthropathy L5-S1. Electronic device body lies in the left gluteal subcutaneous fat. Lead courses through the fat of the lower back to the left of midline before terminating off the scan field. Otherwise no focal soft tissue abnormalities. IMPRESSION: No acute intra-abdominal or pelvic CT abnormalities. No urolithiasis per c linical query. Greater than expected soft tissue density in the ascending colon at the ileocecal valve, which may reflect adherent stool. However, gastroenterology referral for direct visualization is suggested to exclude presence of a polypoid lesion. No adjacent lymphadenopathy or findings to suggest bowel obstruction. Signed by: Dr. Jana Kramer M.D. on 12/31/2019 10:35 AM Dictated By: JANA KRAMER MD 103 Transcribed By: XENIA on 12/31/19 1035 COPY TO: EAN MELTON MD CHEST SINGLE (PORTABLE) 2019-12-31 09:28:00 [place] [address] Patient Name: UZMA REED MR #: [id number] : 1975 Age/Sex: 44/F Req #: [id number] Adm Physician: Ordered by: EAN MELTON MD Report #: [id number] Location: ER Room/Bed: Procedure: [id number] DX/CHEST SINGLE (PORTABLE) Exam Date: 12/31/19 Exam Time: 844 REPORT STATUS: Signed TECHNIQUE: Frontal view of the chest. INDICATION: ABD/BACK PAIN, LE EDEMA [id number] COMPARISON: None DISCUSSION: Limited evaluation due to portable technique. Lines and hardware: A wire is identified overlying the left tracy thorax and continuing above the sszib-ie-knod and inferior to the field of view. Heart and mediastinum: Stable. Lungs and pleura: No focal airspace consolidation. No pleural effusion. No pneumothorax. Soft tissues and bones: No acute abnormality. IMPRESSION: Negative for acute intrathoracic process. Signed by: Basim Richardson MD on 12/31/2019 9:29 AM Dictated By: BASIM RICHARDSON MD 8 Transcribed By: XENIA on 12/31/19928 COPY TO: EAN MELTON MD - CT ABD PELVIS W/CONT 2019-11-29 21:26:00 Mil e: UZMA REED [facility] : 1975 Age/S: 44 / F [address] [facility] Unit #: [id number] Loc: [place] [address] Phys: Norm Cabrera MD Acct: [id number] Dis Date: Status: REG ER PHONE #: [phone] Exam Date: 11/29/20192114 FAX #: [phone] Reason: abd pain EXAMS: CPT CODE: [id number] CT ABD PELVIS W/CONT 33175 EXAM: CT ABDOMEN/PELVIS WITH CONTRAST HISTORY: Abdominal pain TECHNIQUE: Helical imaging was performed diaphragm through the symphysis with multiplanar reformations obtained. IV CONTRAST: 100cc Omnipaque 300 GI CONTRAST: No DOSE: CT imaging performed at this location utilizes radiation dose optimization technique which includes one or more of the followin) Automated exposure control; 2) Adjustment of the mA and/or kV according to patient's size; 3) Use of iterative reconstruction techniques DLP (mGy-cm): 1148 COMPARISON: CT 08/27/2019 FINDINGS: LOWER CHEST: Bibasilar atelectasis. Visualized heart is unremarkable. SOLID ORGANS: No focal liver lesions. No intra or extrahepatic biliary ductal dilation. Cholecystectomy clips are noted. The spleen, pancreas, and adrenal glands are normal in appearance. Both kidneys demonstrate normal corticomedullary phase of enhancement. No renal/ureteral calculus, hydronephrosis, mass, or cyst is apparent. BOWEL: The small bowel and colon are normal in caliber without wall thickening. Normal appendix. No signs of obstruction.] PERITONEUM: No free intraperitoneal fluid or air. RETROPERITONEUM: Normal caliber of the abdominal aorta is noted. No lymphadenopathy. PELVIS: The visualized urinary bladder wall is normal thickness. Organs of reproduction are unremarkable. MUSCULOSKELETAL: No acute osseous abnormality is seen. No destructive lytic or blastic osseous lesion is noted. Chronic degenerative changes of the lumbar spine, most significant at L5-S1. SOFT TISSUES: No ventral abdominal hernia. No anasarca. PAGE 1 Signed Report (CONTINUED) Name: UZMA REED [facility] : 1975 Age/S: 44 / F [facility] Unit #: [id number] Loc: [place] [address] Phys: Norm Cabrera MD Acct: [id number] Dis Date: Status: REG ER PHONE #: [phone] Exam Date: 11/29/2019 211 FAX #: [phone] Reason: abd pain EXAMS: CPT CODE: [id number] CT ABD PELVIS W/CONT 98376 <Continued> IMPRESSION: No acute abnormality of the abdomen or pelvis. SL: 109-0132PHV at 2125 Reported and signed by: Jana Caballero M.D. CC: Hesham Fisher; Norm Cabrera MD Technologist:ANDREW POPE(R),RDMS,CT CTDI: DLP: Trnscb Date/Time: 11/29/2019 (2125) [email or web address] Orig Print D/T: S: 11/29/2019 (2128) PAGE 2 Signed Report - CT C-SPINE W/O CONTRAST 2019-11-29 21:21:00 Name: UZMA REED [facility] : 1975 Age/S: 44 / F [address] [place] [address] Unit #: [id number] Loc: [place] [address] Phys: Norm Cabrera MD Acct: [id number] Dis Date: Status: REG ER PHONE #: [phone] Exam Date: 11/29/2019 2100 FAX #: [phone] Reason: fall, pain EXAMS: CPT CODE: [id number] CT C-SPINE W/O CONTRAST 46935 HISTORY: headache TECHNIQUE: Noncontrast 2.[address] of the head. 2.[address] of the cervical spine. Sagittal and coronal reformatted images were generated. . Examination acquired within 24 hours of arrival. Automated exposure control for dose reduction. COMPARISON: Multiple head CTs, the most recent 08/27/2019 FINDINGS: HEAD CT: No lacerations or contusions of the scalp or facial soft tissues. Calvarium and skull base are intact. No acte or chronic infarct. No effacement of the sulci or coleman-white matter interface. No acute hemorrhage. No intracranial mass, mass effect, or midline shift. No cortical atrophy. No signs of white matter small-vessel disease. No hydrocephalus.. No extra-axial fluid collection. Visualized paranasal sinuses are clear. Mastoid air cells and middle ear cavities are clear. Orbital contents are unremarkable. CERVICAL SPINE CT: No acute fracture of the cervical spine. No subluxation. Craniocervical and cervicothoracic articulations are appropriate. Vertebral body heights are preserved. Intervertebral disc heights are preserved. No prevertebral or paraspinal soft tissue abnormality. Visualized posterior fossa contents are grossly unremarkable. Lung apices are clear. Unchanged left thyroid nodules. IMPRESSION: Negative CT head and cervical spine. Location: PAGE 1 Signed Report (CONTINUED) Name: UZMA REED [facility] : 1975 Age/S: 44 / F [address] [facility] Unit #: [id number] Loc: [place] [address] Phys: Norm Cohen MD Acct: [id number] Dis Date: Status: REG ER PHONE #: [phone] Exam Date: 11/29/2019 2100 FAX #: [phone] Reason: fall, pain EXAMS: CPT CODE: [id number] CT C-SPINE W/O CONTRAST 94304 <Continued> at 2120 Reported and signed by: Jana Caballero M.D. CC: Hesham Fisher; Norm Cabrera MD Technologist:ANDREW POPE RT(R),RDMS,CT CTDI: DLP: Trnscb Date/Time: 11/29/2019 (2120) [email or web address] Orig Print D/T: S: 11/29/2019 (2123) PAGE 2 Signed Report - CT HEAD/BRAIN W/O CONT 2019-11-29 21:21:00 N greta: UZMA REED [facility] : 1975 Age/S: 44 / F [facility] Unit #: [id number] Loc: [place] [address] Phys: Norm Cabrera MD Acct: [id number] Dis Date: Status: REG ER PHONE #: [phone] Exam Date: 11/29/20192057 FAX #: [phone] Reason: headache EXAMS: CPT CODE: [id number] CT HEAD/BRAIN W/O CONT 76134 HISTORY: headache TECHNIQUE: Noncontrast 2.[address] of the head. 2.[address] of the cervical spine. Sagittal and coronal reformatted images were generated. . Examination acquired within 24 hours of arrival. Automated exposure control for dose reduction. COMPARISON: Multiple head CTs, the most recent 08/27/2019 FINDINGS: HEAD CT: No lacerations or contusions of the scalp or facial soft tissues. Calvarium and skull base are intact. No acte or chronic infarct. No effacement of the sulci or coleman-white matter interface. No acute hemorrhage. No intracranial mass, mass effect, or midline shift. No cortical atrophy. No signs of white matter small-vessel disease. No hydrocephalus.. No extra-axial fluid collection. Visualized paranasal sinuses are clear. Mastoid air cells and middle ear cavities are clear. Orbital contents are unremarkable. CERVICAL SPINE CT: No acute fracture of the cervical spine. No subluxation. Craniocervical and cervicothoracic articulations are appropriate. Vertebral body heights are preserved. Intervertebral disc heights are preserved. No prevertebral or paraspinal soft tissue abnormality. Visualized posterior fossa contents are grossly unremarkable. Lung apices are clear. Unchanged left thyroid nodules. IMPRESSION: Negative CT head and cervical spine. Location: PAGE 1 Signed Report (CONTINUED) [facility] 1975 [facility]S: 44 / F [facility] Unit #: [id number] Loc: [place] [address] Phys: Norm Cohen MD Acct: [id number] Dis Date: Status: REG ER PHONE #: [phone] Exam Date: 11/29/20192057 FAX #: [phone] Reason: headache EXAMS: CPT CODE: [id number] CT HEAD/BRAIN W/O CONT 88908 <Continued> at 2120 Reported and signed by: Jana Caballero M.D. CC: Hesham Fisher; Norm Cabrera MD Technologist:ANDREW POPE RT(R),RDMS,CT CTDI: DLP: Trnscb Date/Time: 11/29/2019 (2120) [email or web address] Orig Print D/T: S: 11/29/2019 (2123) PAGE 2 Signed Report COMPREHENSIVE METABOLIC PANEL 2019-11-29 20:21:00 Test Item SODIUM (test code = NA) 142 mmol/L 136-145 N POTASSIUM (test code = K) 3.1 mmol/L 3.5-5.1 L CHLORIDE (test code = CL) 104 mmol/L 101-109 N CARBON DIOXIDE (test code = CO2) 31.8 mmol/L 21-32 N ANION GAP (test code = GAP) 9 mmol/L 10-20 L GLUCOSE (test code = GLU) 99 mg/dL 74-106 N BLOOD UREA NITROGEN (test code = BUN) 5 mg/dL 3-21 N CREATININE (test code = CREAT) 0.95 mg/dL 0.55-1.3 N BUN/CREATININE RATIO (test code = BUN/CREA) 5.3 10-20 L TOTAL PROTEIN (test code = PROT) 6.9 g/dL 6.5-8.4 N ALBUMIN (test code = ALB) 3.2 g/dL 3.4-4.8 L GLOBULIN (test code = GLOB) 3.7 G/DL 1-10 N ALBUMIN/GLOBULIN RATIO (test code = A/G) 0.86 RATIO 0.75-1.50 N CALCIUM (test code = CA) 8.6 mg/dL 8.4-10.2 N BILIRUBIN TOTAL (test code = BILT) 0.20 mg/dL 0.0-1.0 N SGOT/AST (test code = AST) 17 U/L 6-32 N SGPT/ALT (test code = ALT) 27 U/L 12-78 N N ote: Change in REFERENCE RANGE due to new reagent method. ALKALINE PHOSPHATASE TOTAL (test code = ALKP) 83 U/L 38-126 N [id number] 20:21:00* Test Item Value Reference Range Interpretation Comments LIPASE (test code = LIP) 135 U/L 128-270 N HCG SERUM [id number] 20:21:00* Test Item Value Reference Range Interpretation Comments HCG SERUM QUAL (test code = HCGQL) NEGATIVE NEGATIVE This HCGQL test is NOT applicable for MALE patients.Check with nurse about probable order error.If Tumor Marker Test needed, nurse should order test "HCGTU"(Test #550.94055) [id number] 20:21:00* Test Item Value Reference Range Interpretation Comments TROPONIN-I (test code = TROPI) <0.015 ng/mL 0.00-0.056 N CBC W/AUTO [id number] 20:16:00* Test Item Value Reference Range Interpretation Comments WHITE BLOOD CELL (test code = WBC) 7.8 K/mm3 4.5-12.5 N RED BLOOD CELL (test code = RBC) 4.33 mill/mm3 3.7-5.2 N HEMOGLOBIN (test code = HGB) 7.9 gram/dL 11.5-15.5 L HEMATOCRIT (test code = HCT) 28.5 % 36.0-46.0 L MEAN CELL VOLUME (test code = MCV) 65.8 fL 80-98 L MEAN CELL HGB (test code = MCH) 18.2 picogram 27.0-33.0 L MEAN CELL HGB CONCETRATION (test code = MCHC) 27.7 gram/dL 33.0-36. 0 L RED CELL DISTRIBUTION WIDTH (test code = RDW) 20.2 % 11.6-16. 2 H RED CELL DISTRIBUTION WIDTH SD (test code = RDW-SD) 47.6 fL 37 .0-51.0 N PLATELET COUNT (test code = PLT) 195 K/mm3 150-450 N MEAN PLATELET VOLUME (test code = MPV) 8.9 fL 6.7-11.0 N NEUTROPHIL % (test code = NT%) 59.4 % 39.0-69.0 N LYMPHOCYTE % (test code = LY%) 28.6 % 25.0-55.0 N MONOCYTE % (test code = MO%) 7.7 % 0.0-10.0 N EOSINOPHIL % (test code = EO%) 3.6 % 0.0-5.0 N BASOPHIL % (test code = BA%) 0.4 % 0.0-1.0 N NEUTROPHIL # (test code = NT#) 4.65 K/mm3 1.8-7.7 N LYMPHOCYTE # (test code = LY#) 2.24 K/mm3 1.0-5.0 N MONOCYTE # (test code = MO#) 0.60 K/mm3 0-0.8 N EOSINOPHIL # (test code = EO#) 0.28 K/mm3 0.0-0.5 N BASOPHIL # (test code = BA#) 0.03 K/mm3 0.0-0.2 N MANUAL DIFF REQUIRED (test code = MDIFF) NO, ONLY SCAN NEEDED DIFFERENTIAL [id number] 20:16:00* Test Item Value Reference Range Interpretation Comments STAIN ACCEPTABILITY (test code = STN ACCEPTABLE) STAIN ACCEPTABLE HYPOCHROMIA (test code = HYPO) 2+ ANISOCYTOSIS (test code = ANISO) 1+ PLATELET ESTIMATE (test code = PLTEST) ADEQUATE PLATELET MORPHOLOGY (test code = PLTMORPH) NORMAL COMPREHENSIVE METABOLIC [id number] 20:14:00* Test Item Value Reference Range Interpretation Comments SODIUM (test code = NA) 142 mmol/L 136-145 N POTASSIUM (test code = K) 3.1 mmol/L 3.5-5.1 L CHLORIDE (test code = CL) 104 mmol/L 101-109 N CARBON DIOXIDE (test code = CO2) 31.8 mmol/L 21-32 N ANION GAP (test code = GAP) 9 mmol/L 10-20 L GLUCOSE (test code = GLU) 99 mg/dL 74-106 N BLOOD UREA NITROGEN (test code = BUN) 5 mg/dL 3-21 N CREATININE (test code = CREAT) 0.95 mg/dL 0.55-1.3 N BUN/CREATININE RATIO (test code = BUN/CREA) 5.3 10-20 L TOTAL PROTEIN (test code = PROT) gram/dL 6.4-8.2 ALBUMIN (test code = ALB) g/dL 3.4-5.0 GLOBULIN (test code = GLOB) g/dL 2.7-4.2 ALBUMIN/GLOBULIN RATIO (test code = A/G) 0.75-1.50 CALCIUM (test code = CA) 8.6 mg/dL 8.4-10.2 N BILIRUBIN TOTAL (test code = BILT) mg/dL 0.2-1.2 SGOT/AST (test code = AST) IUnit/L 15-37 SGPT/ALT (test code = ALT) U/L 10-69 ALKALINE PHOSPHATASE TOTAL (test code = ALKP) IUnit/L 45-117 [id number] 20:14:00* Test Item Value Reference Range Interpretation Comments LIPASE (test code = LIP) Unit/L 144-286 HCG SERUM [id number] 20:14:00* Test Item Value Reference Range Interpretation Comments HCG SERUM QUAL (test code = HCGQL) NEGATIVE [id number] 20:14:00* Test Item Value Reference Range Interpretation Comments TROPONIN-I (test code = TROPI) ng/mL 0-0.045 COMPREHENSIVE METABOLIC [id number] 20:14:00* Test Item Value Reference Range Interpretation Comments SODIUM (test code = NA) 142 mmol/L 136-145 N POTASSIUM (test code = K) 3.1 mmol/L 3.5-5.1 L CHLORIDE (test code = CL) 104 mmol/L 101-109 N CARBON DIOXIDE (test code = CO2) 31.8 mmol/L 21-32 N ANION GAP (test code = GAP) 9 mmol/L 10-20 L GLUCOSE (test code = GLU) 99 mg/dL 74-106 N BLOOD UREA NITROGEN (test code = BUN) 5 mg/dL 3-21 N CREATININE (test code = CREAT) 0.95 mg/dL 0.55-1.3 N BUN/CREATININE RATIO (test code = BUN/CREA) 5.3 10-20 L TOTAL PROTEIN (test code = PROT) gram/dL 6.4-8.2 ALBUMIN (test code = ALB) g/dL 3.4-5.0 GLOBULIN (test code = GLOB) g/dL 2.7-4.2 ALBUMIN/GLOBULIN RATIO (test code = A/G) 0.75-1.50 CALCIUM (test code = CA) 8.6 mg/dL 8.4-10.2 N BILIRUBIN TOTAL (test code = BILT) mg/dL 0.2-1.2 SGOT/AST (test code = AST) IUnit/L 15-37 SGPT/ALT (test code = ALT) U/L 10-69 ALKALINE PHOSPHATASE TOTAL (test code = ALKP) IUnit/L 45-117 [id number] 20:14:00* Test Item Value Reference Range Interpretation Comments LIPASE (test code = LIP) Unit/L 144-286 HCG SERUM [id number] 20:14:00* Test Item Value Reference Range Interpretation Comments HCG SERUM QUAL (test code = HCGQL) NEGATIVE NEGATIVE This HCGQL test is NOT applicable for MALE patients.Check with nurse about probable order error.If Tumor Marker Test needed, nurse should order test "HCGTU"(Test #550.11599) [id number] 20:14:00* Test Item Value Reference Range Interpretation Comments TROPONIN-I (test code = TROPI) ng/mL 0-0.045 B-TYPE NATRIURETIC [id number] 20:14:00* Test Item Value Reference Range Interpretation Comments B-TYPE NATRIURETIC PEPTIDE (test code = BNP) 14.8 pg/mL 0-100 N CBC W/AUTO [id number] 20:05:00* Test Item Value Reference Range Interpretation Comments WHITE BLOOD CELL (test code = WBC) 7.8 K/mm3 4.5-12.5 N RED BLOOD CELL (test code = RBC) 4.33 mill/mm3 3.7-5.2 N HEMOGLOBIN (test code = HGB) 7.9 gram/dL 11.5-15.5 L HEMATOCRIT (test code = HCT) 28.5 % 36.0-46.0 L MEAN CELL VOLUME (test code = MCV) 65.8 fL 80-98 L MEAN CELL HGB (test code = MCH) 18.2 picogram 27.0-33.0 L MEAN CELL HGB CONCETRATION (test code = MCHC) 27.7 gram/dL 33.0-36. 0 L RED CELL DISTRIBUTION WIDTH (test code = RDW) 20.2 % 11.6-16. 2 H RED CELL DISTRIBUTION WIDTH SD (test code = RDW-SD) 47.6 fL 37 .0-51.0 N PLATELET COUNT (test code = PLT) 195 K/mm3 150-450 N MEAN PLATELET VOLUME (test code = MPV) 8.9 fL 6.7-11.0 N NEUTROPHIL % (test code = NT%) 59.4 % 39.0-69.0 N LYMPHOCYTE % (test code = LY%) 28.6 % 25.0-55.0 N MONOCYTE % (test code = MO%) 7.7 % 0.0-10.0 N EOSINOPHIL % (test code = EO%) 3.6 % 0.0-5.0 N BASOPHIL % (test code = BA%) 0.4 % 0.0-1.0 N NEUTROPHIL # (test code = NT#) 4.65 K/mm3 1.8-7.7 N LYMPHOCYTE # (test code = LY#) 2.24 K/mm3 1.0-5.0 N MONOCYTE # (test code = MO#) 0.60 K/mm3 0-0.8 N EOSINOPHIL # (test code = EO#) 0.28 K/mm3 0.0-0.5 N BASOPHIL # (test code = BA#) 0.03 K/mm3 0.0-0.2 N MANUAL DIFF REQUIRED (test code = MDIFF) NO, ONLY SCAN NEEDED DIFFERENTIAL [id number] 20:05:00* Test Item Value Reference Range Interpretation Comments STAIN ACCEPTABILITY (test code = STN ACCEPTABLE) MORPHOLOGY COMMENT (test code = MOC) PLATELET ESTIMATE (test code = PLTEST) PLATELET MORPHOLOGY (test code = PLTMORPH) CBC W/AUTO [id number] 20:04:00* Test Item Value Reference Range Interpretation Comments WHITE BLOOD CELL (test code = WBC) 7.8 K/mm3 4.5-12.5 N RED BLOOD CELL (test code = RBC) 4.33 mill/mm3 3.7-5.2 N HEMOGLOBIN (test code = HGB) 7.9 gram/dL 11.5-15.5 L HEMATOCRIT (test code = HCT) 28.5 % 36.0-46.0 L MEAN CELL VOLUME (test code = MCV) 65.8 fL 80-98 L MEAN CELL HGB (test code = MCH) 18.2 picogram 27.0-33.0 L MEAN CELL HGB CONCETRATION (test code = MCHC) 27.7 gram/dL 33.0-36. 0 L RED CELL DISTRIBUTION WIDTH (test code = RDW) 20.2 % 11.6-16. 2 H RED CELL DISTRIBUTION WIDTH SD (test code = RDW-SD) 47.6 fL 37 .0-51.0 N PLATELET COUNT (test code = PLT) 195 K/mm3 150-450 N MEAN PLATELET VOLUME (test code = MPV) 8.9 fL 6.7-11.0 N NEUTROPHIL % (test code = NT%) 59.4 % 39.0-69.0 N LYMPHOCYTE % (test code = LY%) 28.6 % 25.0-55.0 N MONOCYTE % (test code = MO%) 7.7 % 0.0-10.0 N EOSINOPHIL % (test code = EO%) 3.6 % 0.0-5.0 N BASOPHIL % (test code = BA%) 0.4 % 0.0-1.0 N NEUTROPHIL # (test code = NT#) 4.65 K/mm3 1.8-7.7 N LYMPHOCYTE # (test code = LY#) 2.24 K/mm3 1.0-5.0 N MONOCYTE # (test code = MO#) 0.60 K/mm3 0-0.8 N EOSINOPHIL # (test code = EO#) 0.28 K/mm3 0.0-0.5 N BASOPHIL # (test code = BA#) 0.03 K/mm3 0.0-0.2 N MANUAL DIFF REQUIRED (test code = MDIFF) NO, ONLY SCAN NEEDED DIFFERENTIAL [id number] 20:04:00* Test Item Value Reference Range Interpretation Comments STAIN ACCEPTABILITY (test code = STN ACCEPTABLE) CABOT RINGS (test code = CAB) MORPHOLOGY COMMENT (test code = MOC) PLATELET ESTIMATE (test code = PLTEST) PLATELET MORPHOLOGY (test code = PLTMORPH) CBC W/AUTO [id number] 20:04:00* Test Item Value Reference Range Interpretation Comments WHITE BLOOD CELL (test code = WBC) 7.8 K/mm3 4.5-12.5 N RED BLOOD CELL (test code = RBC) 4.33 mill/mm3 3.7-5.2 N HEMOGLOBIN (test code = HGB) 7.9 gram/dL 11.5-15.5 L HEMATOCRIT (test code = HCT) 28.5 % 36.0-46.0 L MEAN CELL VOLUME (test code = MCV) 65.8 fL 80-98 L MEAN CELL HGB (test code = MCH) 18.2 picogram 27.0-33.0 L MEAN CELL HGB CONCETRATION (test code = MCHC) 27.7 gram/dL 33.0-36. 0 L RED CELL DISTRIBUTION WIDTH (test code = RDW) 20.2 % 11.6-16. 2 H RED CELL DISTRIBUTION WIDTH SD (test code = RDW-SD) 47.6 fL 37 .0-51.0 N PLATELET COUNT (test code = PLT) 195 K/mm3 150-450 N MEAN PLATELET VOLUME (test code = MPV) 8.9 fL 6.7-11.0 N NEUTROPHIL % (test code = NT%) 59.4 % 39.0-69.0 N LYMPHOCYTE % (test code = LY%) 28.6 % 25.0-55.0 N MONOCYTE % (test code = MO%) 7.7 % 0.0-10.0 N EOSINOPHIL % (test code = EO%) 3.6 % 0.0-5.0 N BASOPHIL % (test code = BA%) 0.4 % 0.0-1.0 N NEUTROPHIL # (test code = NT#) 4.65 K/mm3 1.8-7.7 N LYMPHOCYTE # (test code = LY#) 2.24 K/mm3 1.0-5.0 N MONOCYTE # (test code = MO#) 0.60 K/mm3 0-0.8 N EOSINOPHIL # (test code = EO#) 0.28 K/mm3 0.0-0.5 N BASOPHIL # (test code = BA#) 0.03 K/mm3 0.0-0.2 N MANUAL DIFF REQUIRED (test code = MDIFF) NO, ONLY SCAN NEEDED DIFFERENTIAL [id number] 20:04:00* Test Item Value Reference Range Interpretation Comments STAIN ACCEPTABILITY (test code = STN ACCEPTABLE) MORPHOLOGY COMMENT (test code = MOC) PLATELET ESTIMATE (test code = PLTEST) PLATELET MORPHOLOGY (test code = PLTMORPH) CBC W/AUTO [id number] 20:03:00* Test Item Value Reference Range Interpretation Comments WHITE BLOOD CELL (test code = WBC) 7.8 K/mm3 4.5-12.5 N RED BLOOD CELL (test code = RBC) 4.33 mill/mm3 3.7-5.2 N HEMOGLOBIN (test code = HGB) 7.9 gram/dL 11.5-15.5 L HEMATOCRIT (test code = HCT) 28.5 % 36.0-46.0 L MEAN CELL VOLUME (test code = MCV) 65.8 fL 80-98 L MEAN CELL HGB (test code = MCH) 18.2 picogram 27.0-33.0 L MEAN CELL HGB CONCETRATION (test code = MCHC) 27.7 gram/dL 33.0-36. 0 L RED CELL DISTRIBUTION WIDTH (test code = RDW) 20.2 % 11.6-16. 2 H RED CELL DISTRIBUTION WIDTH SD (test code = RDW-SD) 47.6 fL 37 .0-51.0 N PLATELET COUNT (test code = PLT) 195 K/mm3 150-450 N MEAN PLATELET VOLUME (test code = MPV) 8.9 fL 6.7-11.0 N NEUTROPHIL % (test code = NT%) 59.4 % 39.0-69.0 N LYMPHOCYTE % (test code = LY%) 28.6 % 25.0-55.0 N MONOCYTE % (test code = MO%) 7.7 % 0.0-10.0 N EOSINOPHIL % (test code = EO%) 3.6 % 0.0-5.0 N BASOPHIL % (test code = BA%) 0.4 % 0.0-1.0 N NEUTROPHIL # (test code = NT#) 4.65 K/mm3 1.8-7.7 N LYMPHOCYTE # (test code = LY#) 2.24 K/mm3 1.0-5.0 N MONOCYTE # (test code = MO#) 0.60 K/mm3 0-0.8 N EOSINOPHIL # (test code = EO#) 0.28 K/mm3 0.0-0.5 N BASOPHIL # (test code = BA#) 0.03 K/mm3 0.0-0.2 N MANUAL DIFF REQUIRED (test code = MDIFF) NO, ONLY SCAN NEEDED DIFFERENTIAL [id number] 20:03:00* Test Item Value Reference Range Interpretation Comments STAIN ACCEPTABILITY (test code = STN ACCEPTABLE) CABOT RINGS (test code = CAB) MORPHOLOGY COMMENT (test code = MOC) PLATELET ESTIMATE (test code = PLTEST) PLATELET MORPHOLOGY (test code = PLTMORPH) URINALYSIS W/O [id number] 19:30:00* Test Item Value Reference Range Interpretation Comments UA COLOR (test code = COLU) YELLOW YELLOW UA APPEARANCE (test code = APPU) CLEAR CLEAR UA GLUCOSE DIPSTICK (test code = DGLUU) norm mg/dL NEGATIVE UA BILIRUBIN DIPSTICK (test code = BILU) NEGATIVE mg/dL NEGATIVE UA KETONE DIPSTICK (test code = KETU) neg mg/dL NEGATIVE UA SPECIFIC GRAVITY (test code = SGU) 1.010 1.001-1.035 UA BLOOD DIPSTICK (test code = RODRICK) neg Murray/uL NEGATIVE UA PH DIPSTICK (test code = NATALIO) 5.0 5.0-8.0 UA PROTEIN DIPSTICK (test code = PROU) neg mg/dL Neg-15 UA UROBILINIOGEN DIPSTICK (test code = URO) norm mg/dL 0.0-0.2 UA NITRITE DIPSTICK (test code = ALESHIA) NEGATIVE NEGATIVE UA LEUKOCYTE ESTERASE DIPSTICK (test code = LEUU) neg uL NEGA TIVE UA MICROSCOPIC NEEDED? (test code = UAMICRO) NO, NOT INDICATED UA MICROSCOPIC NOT INDICATED UA MICROSCOPIC EXAMS ARE NOT PERFORMED UNLESS ONE OF THECHEMICAL TESTS OR VISUAL EXAMINATION IS ABNORMAL. THE MICROSCOPIC EVALUATIONS ARE PERFORMED ON ALL ABNORMALRESULTS AND/OR WHEN SPECIFICALLY ORDERED BY A PHYSICIAN. DRUGS OF ABUSE SCREEN [id number] 19:30:00* Test Item Value Reference Range Interpretation Comments URN COCAINE (test code = COCAURN) NEGATIVE NEGATIVE URN CANNABINOIDS (test code = CANNABURN) NEGATIVE NEGATIVE URN AMPHETAMINE (test code = AMPHETURN) NEGATIVE NEGATIVE URN BARBITURATE (test code = BARBITURN) POSITIVE NEGATIVE A This test provides only a preliminary test result. A morespecific alternate chemical method must be used in order toobtain a confirmed analytical result. Gas chromatography/mass spectrometry (GC/MS) is thepreferred confirmatory method. Other chemical confirmationmethods are available. Clinical consideration and professional judgment should be applied to any drug of abusetest result, particularly when preliminary positive resultsare used.Unconfirmed screening results must not be used fornon-medical purposes (e.g., employment testing, legaltesting). URN BENZODIAZEPINE (test code = BENZOURN) POSITIVE NEGATIVE A URN OPIATES (test code = OPIATURN) NEGATIVE NEGATIVE URN PHENCYCLIDINE (PCP) (test code = PHENCURN) NEGATIVE NEGATIV E URINALYSIS W/O [id number] 19:20:00* Test Item Value Reference Range Interpretation Comments UA COLOR (test code = COLU) YELLOW YELLOW UA APPEARANCE (test code = APPU) CLEAR CLEAR UA GLUCOSE DIPSTICK (test code = DGLUU) norm mg/dL NEGATIVE UA BILIRUBIN DIPSTICK (test code = BILU) NEGATIVE mg/dL NEGATIVE UA KETONE DIPSTICK (test code = KETU) neg mg/dL NEGATIVE UA SPECIFIC GRAVITY (test code = SGU) 1.010 1.001-1.035 UA BLOOD DIPSTICK (test code = RODRICK) neg Murray/uL NEGATIVE UA PH DIPSTICK (test code = NATALIO) 5.0 5.0-8.0 UA PROTEIN DIPSTICK (test code = PROU) neg mg/dL Neg-15 UA UROBILINIOGEN DIPSTICK (test code = URO) norm mg/dL 0.0-0.2 UA NITRITE DIPSTICK (test code = ALESHIA) NEGATIVE NEGATIVE UA LEUKOCYTE ESTERASE DIPSTICK (test code = LEUU) neg uL NEGA TIVE UA MICROSCOPIC NEEDED? (test code = UAMICRO) NO, NOT INDICATED UA MICROSCOPIC NOT INDICATED UA MICROSCOPIC EXAMS ARE NOT PERFORMED UNLESS ONE OF THECHEMICAL TESTS OR VISUAL EXAMINATION IS ABNORMAL. THE MICROSCOPIC EVALUATIONS ARE PERFORMED ON ALL ABNORMALRESULTS AND/OR WHEN SPECIFICALLY ORDERED BY A PHYSICIAN. DRUGS OF ABUSE SCREEN [id number] 19:20:00* Test Item Value Reference Range Interpretation Comments URN COCAINE (test code = COCAURN) NEGATIVE URN CANNABINOIDS (test code = CANNABURN) NEGATIVE URN AMPHETAMINE (test code = AMPHETURN) NEGATIVE URN BARBITURATE (test code = BARBITURN) NEGATIVE URN BENZODIAZEPINE (test code = BENZOURN) NEGATIVE URN OPIATES (test code = OPIATURN) NEGATIVE URN PHENCYCLIDINE (PCP) (test code = PHENCURN) NEGATIV E - CTA CHEST FOR [id number] 21:22:00 Name: UZMA REED [facility] : 1975 Age/S: 44 / F [address] [facility] Unit #: [id number] Loc: [place] [address] Phys: Lissette Maguire NUT GRINDER Acct: [id number] Dis Date: Status: REG ER PHONE #: [phone] Exam Date: 09/28/20192114 FAX #: [phone] Reason: elevated d dimer, pain EXAMS: CPT CODE: [id number] [place] [address] HISTORY: Elevated d-dimer and pain with swelling. COMPARISON: CT abdomen pelvis from September 26, 2019. Location: [facility]. CTA CHEST: 3-D images. 100 mL of Isovue-370. Automated exposure control. No pulmonary embolism. Aneurysmal ascending aorta at 4 cm. Descending aorta is not aneurysmal. No dissection. Well-opacified SVC and the visualized neck vasculature. Complex nodule measuring 1.6 cm in the left thyroid in the interpolar location is incompletely included. Soft tissue within the prevascular space may represent residual thymic tissue which is unusual for patient's age however this follows the contour of the prevascular space. I would recommend follow-up. No pathologic adenopathy. Cardiac silhouette is mildly enlarged. No pericardial effusion is noted. Visualized upper abdomen is unremarkable. The subcutaneous tissues and t he musculature are normal in appearance. No lytic or blastic lesions are noted within the bony skeleton. The nodular infiltrate in the left base in the supradiaphragmatic location. This is new from previous CT ab domen and pelvis of September 26, 2019. Dependent changes. No bronchiectasis, honeycombing or fibrosis or endobronchial lesions. Nodular area of atelec tasis within the right base. IMPRESSION: No pulmonary embolism. Aneurysmal ascending aorta without dissection. Descending aorta is not aneurysmal. Patchy nodular infiltrate in the supradiaphragmatic left base. Prominent thymic tissue which is unusual for patient's age. Follow-up recommended. at 2121 Reported and signed by: Claudio Orozco M.D. PAGE 1 Signed Report (CONTINUED) Name: UZMA REED [facility] : 1975 Age/S: 44 / F [address] Unit #: [id number] Loc: [place] [address] Phys: Lissette Maguire NP Acct: [id number] Dis Date: Status: REG ER PHONE #: [phone] Exam Date: 09/28/20192114 FAX #: [phone] Reason: elevated d dimer, pain EXAMS: CPT CODE: [id number] [address] <Continued> CC: Hesham Fisher; Lissette Maguire NP Technologist:Jono Andrade, RT(R)(CT) CTDI: DLP: Trnscb Date/Time: 09/28/2019 (2121) t.SDR.TH4 Orig Print D/T: S: 09/28/2019 (2124) PAGE 2 Signed Report COVID 19 INHOUSE [id number] 20:41:00* Test Item Value Reference Range Interpretation Comments COVID 19 INHOUSE AG (test code = [id number]) NEGATIVE Is patient requiring admission or transfer? YIndication for rapid COVID-19 testi ng: High Clinical SuspicionB-TYPE NATRIURETIC [id number] 18:31:00* Test Item Value Reference Range Interpretation Comments B-TYPE NATRIURETIC PEPTIDE (test code = BNP) 149.48 pgram/mL 0-100 H [id number] 18:20:00* Test Item Value Reference Range Interpretation Comments D-DIMER (test code = DDIMER) 1328.00 ng/mLFEU 0-500 HH Results called to [id number] by RICKI 09/28/19 1819Critical results verified and read back by Nurse? YClinical Cut-off value for D-Dimer is 500 ng/mL FEU. Comment: The [employer] D- Dimer assay is intended for use asan aid in the diagnosis of venous thromboembolism (VTE)[deep vein thrombosis (DVT) or pulmonary embolism (PE)].The measurement of D-Dimer should not be used as an aid inthe diagnosis of VTE, in patient with: -Therapeutic dose anticoagulant therapy for >24 hours - Fibrinolytic therapy within previous 7 days -Trauma or surgery within previous 4 weeks -Disseminated malignancies -Aortic aneurysm -Sepsis, severe infections, pneumonia, severe skin infections -Liver cirrhosis - BASIC METABOLIC [id number] 18:02:00* Test Item Value Reference Range Interpretation Comments SODIUM (test code = NA) 142 mmol/L 136-145 N POTASSIUM (test code = K) 3.7 mmol/L 3.5-5.1 N CHLORIDE (test code = CL) 108.0 mmol/L 98-107 H CARBON DIOXIDE (test code = CO2) 28.0 mmol/L 21-32 N ANION GAP (test code = GAP) 9.7 10-20 L GLUCOSE (test code = GLU) 100 mg/dL 74-106 N BLOOD UREA NITROGEN (test code = BUN) 6 mg/dL 7-18 L GLOMERULAR FILTRATION RATE (test code = GFR) > 60 mL/min >=60 Estimated GFR by using Modified MDRD formula.Chronic kidney disease is defined as either kidney damageor GFR <60 mL/min/1.73 m2 for >3 months. CREATININE (test code = CREAT) 0.80 mg/dL 0.55-1.02 N Note change in reference range due to change in reagent. BUN/CREATININE RATIO (test code = BUN/CREA) 7.9 10-20 L CALCIUM (test code = CA) 8.5 mg/dL 8.5-10.1 N HEPATIC FUNCTION [id number] 18:02:00* Test Item Value Reference Range Interpretation Comments TOTAL PROTEIN (test code = PROT) 7.1 gram/dL 6.4-8.2 N ALBUMIN (test code = ALB) 3.3 g/dL 3.4-5.0 L GLOBULIN (test code = GLOB) 3.8 gram/dL 2.7-4.2 N ALBUMIN/GLOBULIN RATIO (test code = A/G) 0.9 0.75-1.50 N BILIRUBIN TOTAL (test code = BILT) 0.20 mg/dL 0.0-1.0 N BILIRUBIN DIRECT (test code = BILD) 0.09 mg/dL 0.0-0.20 N SGOT/AST (test code = AST) 34 IUnit/L 15-37 N SGPT/ALT (test code = ALT) 31 IUnit/L 12-78 N ALKALINE PHOSPHATASE TOTAL (test code = ALKP) 90 IUnit/L 45-117 N Note change in reference range due to change in reagent. HCG SERUM [id number] 18:02:00* Test Item Value Reference Range Interpretation Comments HCG SERUM QUAL (test code = HCGQL) NEGATIVE NEGATIVE This HCGQL test is NOT applicable for MALE patients.Check with nurse about probable order error.If Tumor Marker Test needed, nurse should order test "HCGTU"(Test #550.33019) [id number] 18:02:00* Test Item Value Reference Range Interpretation Comments TROPONIN-I (test code = TROPI) <0.015 ng/mL 0-0.045 N BASIC METABOLIC [id number] 17:54:00* Test Item Value Reference Range Interpretation Comments SODIUM (test code = NA) 142 mmol/L 136-145 N POTASSIUM (test code = K) 3.7 mmol/L 3.5-5.1 N CHLORIDE (test code = CL) 108.0 mmol/L 98-107 H CARBON DIOXIDE (test code = CO2) mmol/L 21-32 ANION GAP (test code = GAP) 10-20 GLUCOSE (test code = GLU) mg/dL 74-106 BLOOD UREA NITROGEN (test code = BUN) mg/dL 7-18 GLOMERULAR FILTRATION RATE (test code = GFR) mL/min >=60 CREATININE (test code = CREAT) mg/dL 0.55-1.02 BUN/CREATININE RATIO (test code = BUN/CREA) 10-20 CALCIUM (test code = CA) mg/dL 8.5-10.1 HEPATIC FUNCTION [id number] 17:54:00* Test Item Value Reference Range Interpretation Comments TOTAL PROTEIN (test code = PROT) gram/dL 6.4-8.2 ALBUMIN (test code = ALB) g/dL 3.4-5.0 GLOBULIN (test code = GLOB) gram/dL 2.7-4.2 ALBUMIN/GLOBULIN RATIO (test code = A/G) 0.75-1.50 BILIRUBIN TOTAL (test code = BILT) mg/dL 0.0-1.0 BILIRUBIN DIRECT (test code = BILD) mg/dL 0.0-0.20 SGOT/AST (test code = AST) IUnit/L 15-37 SGPT/ALT (test code = ALT) IUnit/L 12-78 ALKALINE PHOSPHATASE TOTAL (test code = ALKP) IUnit/L 45-117 HCG SERUM [id number] 17:54:00* Test Item Value Reference Range Interpretation Comments HCG SERUM QUAL (test code = HCGQL) NEGATIVE NEGATIVE This HCGQL test is NOT applicable for MALE patients.Check with nurse about probable order error.If Tumor Marker Test needed, nurse should order test "HCGTU"(Test #550.03820) [id number] 17:54:00* Test Item Value Reference Range Interpretation Comments TROPONIN-I (test code = TROPI) ng/mL 0-0.045 BASIC METABOLIC [id number] 17:48:00* Test Item Value Reference Range Interpretation Comments SODIUM (test code = NA) 142 mmol/L 136-145 N POTASSIUM (test code = K) 3.7 mmol/L 3.5-5.1 N CHLORIDE (test code = CL) 108.0 mmol/L 98-107 H CARBON DIOXIDE (test code = CO2) mmol/L 21-32 ANION GAP (test code = GAP) 10-20 GLUCOSE (test code = GLU) mg/dL 74-106 BLOOD UREA NITROGEN (test code = BUN) mg/dL 7-18 GLOMERULAR FILTRATION RATE (test code = GFR) mL/min >=60 CREATININE (test code = CREAT) mg/dL 0.55-1.02 BUN/CREATININE RATIO (test code = BUN/CREA) 10-20 CALCIUM (test code = CA) mg/dL 8.5-10.1 HEPATIC FUNCTION [id number] 17:48:00* Test Item Value Reference Range Interpretation Comments TOTAL PROTEIN (test code = PROT) gram/dL 6.4-8.2 ALBUMIN (test code = ALB) g/dL 3.4-5.0 GLOBULIN (test code = GLOB) gram/dL 2.7-4.2 ALBUMIN/GLOBULIN RATIO (test code = A/G) 0.75-1.50 BILIRUBIN TOTAL (test code = BILT) mg/dL 0.0-1.0 BILIRUBIN DIRECT (test code = BILD) mg/dL 0.0-0.20 SGOT/AST (test code = AST) IUnit/L 15-37 SGPT/ALT (test code = ALT) IUnit/L 12-78 ALKALINE PHOSPHATASE TOTAL (test code = ALKP) IUnit/L 45-117 HCG SERUM [id number] 17:48:00* Test Item Value Reference Range Interpretation Comments HCG SERUM QUAL (test code = HCGQL) NEGATIVE [id number] 17:48:00* Test Item Value Reference Range Interpretation Comments TROPONIN-I (test code = TROPI) ng/mL 0-0.045 URINALYSIS [id number] 17:44:00* Test Item Value Reference Range Interpretation Comments UA COLOR (test code = COLU) Light-Yellow YELLOW UA APPEARANCE (test code = APPU) CLEAR CLEAR UA GLUCOSE DIPSTICK (test code = DGLUU) NEGATIVE mg/dL NEGATIVE UA BILIRUBIN DIPSTICK (test code = BILU) NEGATIVE mg/dL NEGATIVE UA KETONE DIPSTICK (test code = KETU) NEGATIVE mg/dL NEGATIVE UA SPECIFIC GRAVITY (test code = SGU) 1.008 1.001-1.035 UA BLOOD DIPSTICK (test code = RODRICK) Negative mg/dL NEGATIVE UA PH DIPSTICK (test code = NATALIO) 5.0 5.0-8.0 UA PROTEIN DIPSTICK (test code = PROU) NEGATIVE mg/dL NEGATIVE UA UROBILINIOGEN DIPSTICK (test code = URO) Normal mg/dL NEGATIVE UA NITRITE DIPSTICK (test code = ALESHIA) NEGATIVE NEGATIVE UA LEUKOCYTE ESTERASE W REFLEX (test code = LEUUR) NEGATIVE Christo/uL NEGATIVE UA WBC (test code = WBCU) 0-5 per HPF 0-5 UA RBC (test code = RBCU) 0-2 #/HPF 0-5 UA EPITHELIAL CELLS (test code = EPIU) None seen per HPF FEW UA BACTERIA (test code = BACU) NONE SEEN #/HPF NONE UA MUCUS (test code = MUCU) FEW #/LPF FEW Urine Source? Clean CatchCBC W/O [id number] 17:41:00* Test Item Value Reference Range Interpretation Comments WHITE BLOOD CELL (test code = WBC) 8.4 K/mm3 4.5-12.5 N RED BLOOD CELL (test code = RBC) 4.41 mill/mm3 3.7-5.2 N HEMOGLOBIN (test code = HGB) 8.0 gram/dL 11.5-15.5 L HEMATOCRIT (test code = HCT) 29.5 % 36.0-46.0 L MEAN CELL VOLUME (test code = MCV) 66.9 fL 80-98 L MEAN CELL HGB (test code = MCH) 18.1 picogram 27.0-33.0 L MEAN CELL HGB CONCETRATION (test code = MCHC) 27.1 gram/dL 33.0-36. 0 L RED CELL DISTRIBUTION WIDTH (test code = RDW) 25.2 % 11.6-16. 2 H PLATELET COUNT (test code = PLT) 208 K/mm3 150-450 N MEAN PLATELET VOLUME (test code = MPV) 9.7 fL 6.7-11.0 N [id number] 06:32:00* Test Item Value Reference Range Interpretation Comments GLYCOSYLATED HEMOGLOBIN (HA1C) (test code = GLYHGB) 5.2 % HbA1 SUGGESTED DIAGNOSIS: HbA1C (%) Diabetic >6.4Prediabetes 5.7 - 6.4Normal <5.7 ESTIMATED AVERAGE GLUCOSE (test code = EAG) 103 MG/DL BASIC METABOLIC [id number] 06:32:00* Test Item Value Reference Range Interpretation Comments SODIUM (test code = NA) 142 mmol/L 136-145 N POTASSIUM (test code = K) 3.5 mmol/L 3.5-5.1 N CHLORIDE (test code = CL) 107.0 mmol/L 98-107 N CARBON DIOXIDE (test code = CO2) 28.0 mmol/L 21-32 N ANION GAP (test code = GAP) 10.5 10-20 N GLUCOSE (test code = GLU) 90 mg/dL 74-106 N BLOOD UREA NITROGEN (test code = BUN) 5 mg/dL 7-18 L GLOMERULAR FILTRATION RATE (test code = GFR) > 60 mL/min >=60 Estimated GFR by using Modified MDRD formula.Chronic kidney disease is defined as either kidney damageor GFR <60 mL/min/1.73 m2 for >3 months. CREATININE (test code = CREAT) 0.70 mg/dL 0.55-1.02 N Note change in reference range due to change in reagent. BUN/CREATININE RATIO (test code = BUN/CREA) 7.2 10-20 L CALCIUM (test code = CA) 7.9 mg/dL 8.5-10.1 L BASIC METABOLIC [id number] 06:18:00* Test Item Value Reference Range Interpretation Comments SODIUM (test code = NA) 142 mmol/L 136-145 N POTASSIUM (test code = K) 3.5 mmol/L 3.5-5.1 N CHLORIDE (test code = CL) 107.0 mmol/L 98-107 N CARBON DIOXIDE (test code = CO2) mmol/L 21-32 ANION GAP (test code = GAP) 10-20 GLUCOSE (test code = GLU) mg/dL 74-106 BLOOD UREA NITROGEN (test code = BUN) mg/dL 7-18 GLOMERULAR FILTRATION RATE (test code = GFR) mL/min >=60 CREATININE (test code = CREAT) mg/dL 0.55-1.02 BUN/CREATININE RATIO (test code = BUN/CREA) 10-20 CALCIUM (test code = CA) mg/dL 8.5-10.1 CBC W/O [id number] 06:17:00* Test Item Value Reference Range Interpretation Comments WHITE BLOOD CELL (test code = WBC) 5.4 K/mm3 4.5-12.5 N RED BLOOD CELL (test code = RBC) 4.45 mill/mm3 3.7-5.2 N HEMOGLOBIN (test code = HGB) 7.4 gram/dL 11.5-15.5 L HEMATOCRIT (test code = HCT) 27.4 % 36.0-46.0 L MEAN CELL VOLUME (test code = MCV) 61.6 fL 80-98 L MEAN CELL HGB (test code = MCH) 16.6 picogram 27.0-33.0 L MEAN CELL HGB CONCETRATION (test code = MCHC) 27.0 gram/dL 33.0-36. 0 L RED CELL DISTRIBUTION WIDTH (test code = RDW) 21.9 % 11.6-16. 2 H PLATELET COUNT (test code = PLT) 208 K/mm3 150-450 N MEAN PLATELET VOLUME (test code = MPV) 9.4 fL 6.7-11.0 N B-TYPE NATRIURETIC [id number] 17:36:00* Test Item Value Reference Range Interpretation Comments B-TYPE NATRIURETIC PEPTIDE (test code = BNP) 40.2 pgram/mL 0-100 N - CT ABD PELVIS [id number] 08:39:00 Name: UZMA REED [facility] : 1975 Age/S: 44 / F [address] [facility] Unit #: [id number] Loc: [place] [address] Phys: Dilma Amos DO Acct: [id number] Dis Date: Status: REG ER PHONE #: [phone] Exam Date: 08/27/2019 0810 FAX #: [phone] Reason: flank pain, r/o pyelonephritis EXAMS: CPT CODE: [id number] CT ABD PELVIS W/CONT 32082 HISTORY: Flank pain/pyelonephritis. COMPARISON: CT scan from May 13, 2017. Location: [facility]. CT abdomen and pelvis with IV contrast: 100 mL of [id number]-370. Automated exposure control. CT ABDOMEN: The lung bases are clear. The liver is enhancing homogeneously. No parenchymal mass or nodules. Patient is post cholecystectomy. Main portal vein is patent. Hepatic artery is patent. The liver measured 19 cm in length. Unremarkable spleen. The stomach distended incompletely however there is mild wall thickening of the gastric antrum. This likely results from underdistention however correlate clinically. Duodenal wall is not thickened. Pancreas is enhancing homogeneously. Adre nals are normal. Kidneys are free from hydroureteronephrosis. Homo geneous enhancement. Bilateral excretion is not seen on the delayed sequen ce likely due to timing of imaging. No pathologic adenopathy . Well-opacified abdominal and pelvic vasculature. No bowel obstruction or colitis or diverticulitis or enteritis. Constipation. CT PELVIS: Appendix is normal. Pelvic bowel loops are deandre bstructed. Constipation. Mild thickening of the rectum likely from underdi stention as no inflammation noted. Unremarkable well-distend ed urinary bladder. Ovaries are within normal limits. Patient is post hyst erectomy. No free fluid or free air or abscess is noted either. No pelvic pathologic adenopathy. Subcutaneous tissues and the musculature ar e normal in appearance. PAGE 1 Signed Report (CONTINUED) Name: UZMA REED [facility] : 1975 Age/S: 44 / F [address] [facility] Unit #: [id number] Loc: [place] [address] Phys: Dilma Amos DO Acct: [id number] Dis Date: Status: REG ER PHONE #: [phone] Exam Date: 08/27/2019 08 FAX #: [phone] Reason: flank pain, r/o pyelonephritis EXAMS: CPT CODE: [id number] CT ABD PELVIS W/CONT 82938 < Continued> Battery pack within the left buttock musculature within the extending into the upper back with the tip is not included. No lytic or blastic lesions are noted. IMPRESSION: No acute intra-abdominal or intrapelvic pathology. at 0839 Reported and signed by: Claudio Orozco M.D. CC: Brayden Vogel MD; Dilma Amos DO Technologist:Wojciech Ricardo RT(R),(MR),(CT) CTDI: DLP: Trnscb Date/Time: 08/27/2019 (0839) [email or web address] Orig Print D/T: S: 08/27/2019 (4407) PAGE 2 Signed Report URINALYSIS [id number] 07:05:00* Test Item Value Reference Range Interpretation Comments UA COLOR (test code = COLU) YELLOW YELLOW UA APPEARANCE (test code = APPU) Cloudy CLEAR A UA GLUCOSE DIPSTICK (test code = DGLUU) NEGATIVE mg/dL NEGATIVE UA BILIRUBIN DIPSTICK (test code = BILU) NEGATIVE mg/dL NEGATIVE UA KETONE DIPSTICK (test code = KETU) NEGATIVE mg/dL NEGATIVE UA SPECIFIC GRAVITY (test code = SGU) 1.009 1.001-1.035 UA BLOOD DIPSTICK (test code = RODRICK) 0.03 mg/dL (Trace) mg/dL NEGATI VE A UA PH DIPSTICK (test code = NATALIO) 5.0 5.0-8.0 UA PROTEIN DIPSTICK (test code = PROU) NEGATIVE mg/dL NEGATIVE UA UROBILINIOGEN DIPSTICK (test code = URO) Normal mg/dL NEGATIVE UA NITRITE DIPSTICK (test code = ALESHIA) POSITIVE NEGATIVE A UA LEUKOCYTE ESTERASE W REFLEX (test code = LEUUR) 500 Christo/u L (3+) Christo/uL NEGATIVE A UA WBC (test code = WBCU) 151-200 per HPF 0-5 A UA RBC (test code = RBCU) 3-5 #/HPF 0-5 UA WBC CLUMPS (test code = WBCUCL) >10 /HPF NONE A UA EPITHELIAL CELLS (test code = EPIU) FEW per HPF FEW UA BACTERIA (test code = BACU) MANY #/HPF NONE A UA MUCUS (test code = MUCU) FEW #/LPF FEW Urine Source? Clean CatchBASIC METABOLIC [id number] 06:37:00* Test Item Value Reference Range Interpretation Comments SODIUM (test code = NA) 142 mmol/L 136-145 N POTASSIUM (test code = K) 3.7 mmol/L 3.5-5.1 N CHLORIDE (test code = CL) 107.0 mmol/L 98-107 N CARBON DIOXIDE (test code = CO2) 28.0 mmol/L 21-32 N ANION GAP (test code = GAP) 10.7 10-20 N GLUCOSE (test code = GLU) 92 mg/dL 74-106 N BLOOD UREA NITROGEN (test code = BUN) 7 mg/dL 7-18 N GLOMERULAR FILTRATION RATE (test code = GFR) > 60 mL/min >=60 Estimated GFR by using Modified MDRD formula.Chronic kidney disease is defined as either kidney damageor GFR <60 mL/min/1.73 m2 for >3 months. CREATININE (test code = CREAT) 0.80 mg/dL 0.55-1.02 N Note change in reference range due to change in reagent. BUN/CREATININE RATIO (test code = BUN/CREA) 8.5 10-20 L CALCIUM (test code = CA) 9.0 mg/dL 8.5-10.1 N HEPATIC FUNCTION [id number] 06:37:00* Test Item Value Reference Range Interpretation Comments TOTAL PROTEIN (test code = PROT) 7.2 gram/dL 6.4-8.2 N ALBUMIN (test code = ALB) 3.6 g/dL 3.4-5.0 N GLOBULIN (test code = GLOB) 3.6 gram/dL 2.7-4.2 N ALBUMIN/GLOBULIN RATIO (test code = A/G) 1.0 0.75-1.50 N BILIRUBIN TOTAL (test code = BILT) 0.20 mg/dL 0.0-1.0 N BILIRUBIN DIRECT (test code = BILD) 0.08 mg/dL 0.0-0.20 N SGOT/AST (test code = AST) 28 IUnit/L 15-37 N SGPT/ALT (test code = ALT) 21 IUnit/L 12-78 N ALKALINE PHOSPHATASE TOTAL (test code = ALKP) 80 IUnit/L 45-117 N Note change in reference range due to change in reagent. [id number] 06:37:00* Test Item Value Reference Range Interpretation Comments LIPASE (test code = LIP) 131 U/L 73.0-393.0 N HCG SERUM [id number] 06:37:00* Test Item Value Reference Range Interpretation Comments HCG SERUM QUAL (test code = HCGQL) NEGATIVE NEGATIVE This HCGQL test is NOT applicable for MALE patients.Check with nurse about probable order error.If Tumor Marker Test needed, nurse should order test "HCGTU"(Test #550.59541) CBC W/O [id number] 06:35:00* Test Item Value Reference Range Interpretation Comments WHITE BLOOD CELL (test code = WBC) 6.9 K/mm3 4.5-12.5 N RED BLOOD CELL (test code = RBC) 4.56 mill/mm3 3.7-5.2 N HEMOGLOBIN (test code = HGB) 7.5 gram/dL 11.5-15.5 L HEMATOCRIT (test code = HCT) 28.4 % 36.0-46.0 L MEAN CELL VOLUME (test code = MCV) 62.3 fL 80-98 L MEAN CELL HGB (test code = MCH) 16.4 picogram 27.0-33.0 L MEAN CELL HGB CONCETRATION (test code = MCHC) 26.4 gram/dL 33.0-36. 0 L RED CELL DISTRIBUTION WIDTH (test code = RDW) 22.1 % 11.6-16. 2 H PLATELET COUNT (test code = PLT) 239 K/mm3 150-450 N MEAN PLATELET VOLUME (test code = MPV) 9.2 fL 6.7-11.0 N PROTHROMBIN [id number] 06:32:00* Test Item Value Reference Range Interpretation Comments PROTHROMBIN TIME PATIENT (test code = PTP) 12.0 seconds 9.0-14.0 N INTERNATIONAL NORMAL RATIO (test code = INR) 1.0 0.8-1.2 N The therapeutic range for oral anticoagulant therapy formost indications is an international normalized ratio (INR)of between 2.0 and 3.0. The recommended therapeutic INRrange for various clinical situations is listed below: Clinical Situation INR range Pulmonary e mbolism treatment (2.0-3.0)Venous thrombosis treatmentVenous thrombosis prophylaxis (high risk surgery)Prevention of systemic embolism from: Acute myocardial infarction Valvular heart disease Atrial fibrillation Mechanical prosthetic heart valves (2.5-3.5) IS PATIENT ON ANTICOAGULANTS? NTHROMBOPLASTIN TIME [id number] 06:32:00* Test Item Value Reference Range Interpretation Comments THROMBOPLASTIN TIME PARTIAL (test code = PTT) 33.6 seconds 23.0-37. 0 N IS PATIENT ON ANTICOAGULANTS? NBASIC METABOLIC [id number] 06:26:00* Test Item Value Reference Range Interpretation Comments SODIUM (test code = NA) 142 mmol/L 136-145 N POTASSIUM (test code = K) 3.7 mmol/L 3.5-5.1 N CHLORIDE (test code = CL) 107.0 mmol/L 98-107 N CARBON DIOXIDE (test code = CO2) mmol/L 21-32 ANION GAP (test code = GAP) 10-20 GLUCOSE (test code = GLU) mg/dL 74-106 BLOOD UREA NITROGEN (test code = BUN) mg/dL 7-18 GLOMERULAR FILTRATION RATE (test code = GFR) mL/min >=60 CREATININE (test code = CREAT) mg/dL 0.55-1.02 BUN/CREATININE RATIO (test code = BUN/CREA) 10-20 CALCIUM (test code = CA) mg/dL 8.5-10.1 HEPATIC FUNCTION [id number] 06:26:00* Test Item Value Reference Range Interpretation Comments TOTAL PROTEIN (test code = PROT) gram/dL 6.4-8.2 ALBUMIN (test code = ALB) g/dL 3.4-5.0 GLOBULIN (test code = GLOB) gram/dL 2.7-4.2 ALBUMIN/GLOBULIN RATIO (test code = A/G) 0.75-1.50 BILIRUBIN TOTAL (test code = BILT) mg/dL 0.0-1.0 BILIRUBIN DIRECT (test code = BILD) mg/dL 0.0-0.20 SGOT/AST (test code = AST) IUnit/L 15-37 SGPT/ALT (test code = ALT) IUnit/L 12-78 ALKALINE PHOSPHATASE TOTAL (test code = ALKP) IUnit/L 45-117 [id number] 06:26:00* Test Item Value Reference Range Interpretation Comments LIPASE (test code = LIP) U/L 73.0-393.0 HCG SERUM [id number] 06:26:00* Test Item Value Reference Range Interpretation Comments HCG SERUM QUAL (test code = HCGQL) NEGATIVE NEGATIVE This HCGQL test is NOT applicable for MALE patients.Check with nurse about probable order error.If Tumor Marker Test needed, nurse should order test "HCGTU"(Test #550.58990) BASIC METABOLIC [id number] 06:23:00* Test Item Value Reference Range Interpretation Comments SODIUM (test code = NA) 142 mmol/L 136-145 N POTASSIUM (test code = K) 3.7 mmol/L 3.5-5.1 N CHLORIDE (test code = CL) 107.0 mmol/L 98-107 N CARBON DIOXIDE (test code = CO2) mmol/L 21-32 ANION GAP (test code = GAP) 10-20 GLUCOSE (test code = GLU) mg/dL 74-106 BLOOD UREA NITROGEN (test code = BUN) mg/dL 7-18 GLOMERULAR FILTRATION RATE (test code = GFR) mL/min >=60 CREATININE (test code = CREAT) mg/dL 0.55-1.02 BUN/CREATININE RATIO (test code = BUN/CREA) 10-20 CALCIUM (test code = CA) mg/dL 8.5-10.1 HEPATIC FUNCTION [id number] 06:23:00* Test Item Value Reference Range Interpretation Comments TOTAL PROTEIN (test code = PROT) gram/dL 6.4-8.2 ALBUMIN (test code = ALB) g/dL 3.4-5.0 GLOBULIN (test code = GLOB) gram/dL 2.7-4.2 ALBUMIN/GLOBULIN RATIO (test code = A/G) 0.75-1.50 BILIRUBIN TOTAL (test code = BILT) mg/dL 0.0-1.0 BILIRUBIN DIRECT (test code = BILD) mg/dL 0.0-0.20 SGOT/AST (test code = AST) IUnit/L 15-37 SGPT/ALT (test code = ALT) IUnit/L 12-78 ALKALINE PHOSPHATASE TOTAL (test code = ALKP) IUnit/L 45-117 [id number] 06:23:00* Test Item Value Reference Range Interpretation Comments LIPASE (test code = LIP) U/L 73.0-393.0 HCG SERUM [id number] 06:23:00* Test Item Value Reference Range Interpretation Comments HCG SERUM QUAL (test code = HCGQL) NEGATIVE - CT HEAD/BRAIN W/O [id number] 06:16:00 Name: UZMA REED [facility] : 1975 Age/S: 44 / F [address] [facility] Unit #: [id number] Loc: [place] [address] Phys: Dilma Amos DO Acct: [id number] Dis Date: Status: REG ER PHONE #: [phone] Exam Date: 08/27/2019609 FAX #: [phone] Reason: headache EXAMS: CPT CODE: [id number] CT HEAD/BRAIN W/O CONT 63106 AFTER HOURS SERVICE ON: 08/27/2019 6:[address] Scan of the Brain Without Contrast Location Code M12 History: headache Technique: Scans were performed on a helical scanner pre IV contrast only. The study is limited secondary to lack of intravenous contrast, particularly for evaluation of masses. One or more of the following dose reduction techniques were used: Automated exposure control, adjustment of the mA and/or kV according to patient size, and/or utilization of iterative reconstruction technique. Findings: There is no hydrocephalus. Basal cisterns are patent. There is no intracranial hyperdense hemorrhage. There is no midline shift or mass effect. No effacement of the george-white matter junction to indicate acute infarction. There is no skull fracture. Impression: No acute intracranial CT findings. at 0616 Reported and signed by: Levi Cantor M.D. CC: Brayden Vogel MD; Dilma Amos DO Technologist:Uzma Eschberger RT(R),CT CTDI: DLP: Trnscb Date/Time: 08/27/2019 (615) BerylR.[email or web address] Orig Print D/T: S: 08/27/2019 (618) PAGE 1 Signed Report CBC W/O [id number] 13:17:00 * Test Item Value Reference Range Interpretation Comments WHITE BLOOD CELL (test code = WBC) 10.2 K/mm3 4.5-12.5 N RED BLOOD CELL (test code = RBC) 4.87 mill/mm3 3.7-5.2 N HEMOGLOBIN (test code = HGB) 7.7 gram/dL 11.5-15.5 L HEMATOCRIT (test code = HCT) 29.4 % 36.0-46.0 L MEAN CELL VOLUME (test code = MCV) 60.4 fL 80-98 L MEAN CELL HGB (test code = MCH) 15.8 picogram 27.0-33.0 L MEAN CELL HGB CONCETRATION (test code = MCHC) 26.2 gram/dL 33.0-36. 0 L RED CELL DISTRIBUTION WIDTH (test code = RDW) 20.2 % 11.6-16. 2 H PLATELET COUNT (test code = PLT) 276 K/mm3 150-450 N MEAN PLATELET VOLUME (test code = MPV) 9.4 fL 6.7-11.0 N DIFFERENTIAL [id number] 13:17:00* Test Item Value Reference Range Interpretation Comments STAIN ACCEPTABILITY (test code = STN ACCEPTABLE) STAIN ACCEPTABLE HYPOCHROMIA (test code = HYPO) 1+ POIKILOCYTOSIS (test code = POIK) 3+ ANISOCYTOSIS (test code = ANISO) 3+ MICROCYTOSIS (test code = MICR) 3+ SCHISTOCYTES (test code = HAKAN) 1+ SICKLE CELLS (test code = SICKL) 2+ PLATELET ESTIMATE (test code = PLTEST) ADEQUATE PLATELET MORPHOLOGY (test code = PLTMORPH) NORMAL CBC W/O [id number] 13:16:00* Test Item Value Reference Range Interpretation Comments WHITE BLOOD CELL (test code = WBC) 10.2 K/mm3 4.5-12.5 N RED BLOOD CELL (test code = RBC) 4.87 mill/mm3 3.7-5.2 N HEMOGLOBIN (test code = HGB) 7.7 gram/dL 11.5-15.5 L HEMATOCRIT (test code = HCT) 29.4 % 36.0-46.0 L MEAN CELL VOLUME (test code = MCV) 60.4 fL 80-98 L MEAN CELL HGB (test code = MCH) 15.8 picogram 27.0-33.0 L MEAN CELL HGB CONCETRATION (test code = MCHC) 26.2 gram/dL 33.0-36. 0 L RED CELL DISTRIBUTION WIDTH (test code = RDW) 20.2 % 11.6-16. 2 H PLATELET COUNT (test code = PLT) 276 K/mm3 150-450 N MEAN PLATELET VOLUME (test code = MPV) 9.4 fL 6.7-11.0 N DIFFERENTIAL [id number] 13:16:00* Test Item Value Reference Range Interpretation Comments STAIN ACCEPTABILITY (test code = STN ACCEPTABLE) CABOT RINGS (test code = CAB) MORPHOLOGY COMMENT (test code = MOC) PLATELET ESTIMATE (test code = PLTEST) PLATELET MORPHOLOGY (test code = PLTMORPH) CBC W/O [id number] 13:16:00* Test Item Value Reference Range Interpretation Comments WHITE BLOOD CELL (test code = WBC) 10.2 K/mm3 4.5-12.5 N RED BLOOD CELL (test code = RBC) 4.87 mill/mm3 3.7-5.2 N HEMOGLOBIN (test code = HGB) 7.7 gram/dL 11.5-15.5 L HEMATOCRIT (test code = HCT) 29.4 % 36.0-46.0 L MEAN CELL VOLUME (test code = MCV) 60.4 fL 80-98 L MEAN CELL HGB (test code = MCH) 15.8 picogram 27.0-33.0 L MEAN CELL HGB CONCETRATION (test code = MCHC) 26.2 gram/dL 33.0-36. 0 L RED CELL DISTRIBUTION WIDTH (test code = RDW) 20.2 % 11.6-16. 2 H PLATELET COUNT (test code = PLT) 276 K/mm3 150-450 N MEAN PLATELET VOLUME (test code = MPV) 9.4 fL 6.7-11.0 N DIFFERENTIAL [id number] 13:16:00* Test Item Value Reference Range Interpretation Comments STAIN ACCEPTABILITY (test code = STN ACCEPTABLE) CABOT RINGS (test code = CAB) MORPHOLOGY COMMENT (test code = MOC) PLATELET ESTIMATE (test code = PLTEST) PLATELET MORPHOLOGY (test code = PLTMORPH) CBC W/O [id number] 13:16:00* Test Item Value Reference Range Interpretation Comments WHITE BLOOD CELL (test code = WBC) 10.2 K/mm3 4.5-12.5 N RED BLOOD CELL (test code = RBC) 4.87 mill/mm3 3.7-5.2 N HEMOGLOBIN (test code = HGB) 7.7 gram/dL 11.5-15.5 L HEMATOCRIT (test code = HCT) 29.4 % 36.0-46.0 L MEAN CELL VOLUME (test code = MCV) 60.4 fL 80-98 L MEAN CELL HGB (test code = MCH) 15.8 picogram 27.0-33.0 L MEAN CELL HGB CONCETRATION (test code = MCHC) 26.2 gram/dL 33.0-36. 0 L RED CELL DISTRIBUTION WIDTH (test code = RDW) 20.2 % 11.6-16. 2 H PLATELET COUNT (test code = PLT) 276 K/mm3 150-450 N MEAN PLATELET VOLUME (test code = MPV) 9.4 fL 6.7-11.0 N DIFFERENTIAL [id number] 13:16:00* Test Item Value Reference Range Interpretation Comments STAIN ACCEPTABILITY (test code = STN ACCEPTABLE) MORPHOLOGY COMMENT (test code = MOC) PLATELET ESTIMATE (test code = PLTEST) PLATELET MORPHOLOGY (test code = PLTMORPH) BASIC METABOLIC [id number] 12:39:00* Test Item Value Reference Range Interpretation Comments SODIUM (test code = NA) 140 mmol/L 136-145 N POTASSIUM (test code = K) 4.6 mmol/L 3.5-5.1 N CHLORIDE (test code = CL) 108.0 mmol/L 98-107 H CARBON DIOXIDE (test code = CO2) 24.0 mmol/L 21-32 N ANION GAP (test code = GAP) 12.6 10-20 N GLUCOSE (test code = GLU) 103 mg/dL 74-106 N BLOOD UREA NITROGEN (test code = BUN) 14 mg/dL 7-18 N GLOMERULAR FILTRATION RATE (test code = GFR) > 60 mL/min >=60 Estimated GFR by using Modified MDRD formula.Chronic kidney disease is defined as either kidney damageor GFR <60 mL/min/1.73 m2 for >3 months. CREATININE (test code = CREAT) 0.80 mg/dL 0.55-1.02 N Note change in reference range due to change in reagent. BUN/CREATININE RATIO (test code = BUN/CREA) 17.5 10-20 N CALCIUM (test code = CA) 9.1 mg/dL 8.5-10.1 N HCG SERUM [id number] 12:39:00* Test Item Value Reference Range Interpretation Comments HCG SERUM QUAL (test code = HCGQL) NEGATIVE NEGATIVE This HCGQL test is NOT applicable for MALE patients.Check with nurse about probable order error.If Tumor Marker Test needed, nurse should order test "HCGTU"(Test #550.21731) [id number] 12:39:00* Test Item Value Reference Range Interpretation Comments TROPONIN-I (test code = TROPI) <0.015 ng/mL 0-0.045 N BASIC METABOLIC [id number] 12:32:00* Test Item Value Reference Range Interpretation Comments SODIUM (test code = NA) 140 mmol/L 136-145 N POTASSIUM (test code = K) 4.6 mmol/L 3.5-5.1 N CHLORIDE (test code = CL) 108.0 mmol/L 98-107 H CARBON DIOXIDE (test code = CO2) mmol/L 21-32 ANION GAP (test code = GAP) 10-20 GLUCOSE (test code = GLU) mg/dL 74-106 BLOOD UREA NITROGEN (test code = BUN) mg/dL 7-18 GLOMERULAR FILTRATION RATE (test code = GFR) mL/min >=60 CREATININE (test code = CREAT) mg/dL 0.55-1.02 BUN/CREATININE RATIO (test code = BUN/CREA) 10-20 CALCIUM (test code = CA) mg/dL 8.5-10.1 HCG SERUM [id number] 12:32:00* Test Item Value Reference Range Interpretation Comments HCG SERUM QUAL (test code = HCGQL) NEGATIVE NEGATIVE This HCGQL test is NOT applicable for MALE patients.Check with nurse about probable order error.If Tumor Marker Test needed, nurse should order test "HCGTU"(Test #550.07682) [id number] 12:32:00* Test Item Value Reference Range Interpretation Comments TROPONIN-I (test code = TROPI) <0.015 ng/mL 0-0.045 N BASIC METABOLIC [id number] 12:29:00* Test Item Value Reference Range Interpretation Comments SODIUM (test code = NA) 140 mmol/L 136-145 N POTASSIUM (test code = K) 4.6 mmol/L 3.5-5.1 N CHLORIDE (test code = CL) 108.0 mmol/L 98-107 H CARBON DIOXIDE (test code = CO2) mmol/L 21-32 ANION GAP (test code = GAP) 10-20 GLUCOSE (test code = GLU) mg/dL 74-106 BLOOD UREA NITROGEN (test code = BUN) mg/dL 7-18 GLOMERULAR FILTRATION RATE (test code = GFR) mL/min >=60 CREATININE (test code = CREAT) mg/dL 0.55-1.02 BUN/CREATININE RATIO (test code = BUN/CREA) 10-20 CALCIUM (test code = CA) mg/dL 8.5-10.1 HCG SERUM [id number] 12:29:00* Test Item Value Reference Range Interpretation Comments HCG SERUM QUAL (test code = HCGQL) NEGATIVE [id number] 12:29:00* Test Item Value Reference Range Interpretation Comments TROPONIN-I (test code = TROPI) <0.015 ng/mL 0-0.045 N BASIC METABOLIC [id number] 11:55:00* Test Item Value Reference Range Interpretation Comments SODIUM (test code = NA) mmol/L 136-145 POTASSIUM (test code = K) mmol/L 3.5-5.1 CHLORIDE (test code = CL) mmol/L 98-107 CARBON DIOXIDE (test code = CO2) mmol/L 21-32 ANION GAP (test code = GAP) 10-20 GLUCOSE (test code = GLU) mg/dL 74-106 BLOOD UREA NITROGEN (test code = BUN) mg/dL 7-18 GLOMERULAR FILTRATION RATE (test code = GFR) mL/min >=60 CREATININE (test code = CREAT) mg/dL 0.55-1.02 BUN/CREATININE RATIO (test code = BUN/CREA) 10-20 CALCIUM (test code = CA) mg/dL 8.5-10.1 HCG SERUM [id number] 11:55:00* Test Item Value Reference Range Interpretation Comments HCG SERUM QUAL (test code = HCGQL) NEGATIVE [id number] 11:55:00* Test Item Value Reference Range Interpretation Comments TROPONIN-I (test code = TROPI) <0.015 ng/mL 0-0.045 N CBC W/O [id number] 11:32:00* Test Item Value Reference Range Interpretation Comments WHITE BLOOD CELL (test code = WBC) 10.2 K/mm3 4.5-12.5 N RED BLOOD CELL (test code = RBC) 4.87 mill/mm3 3.7-5.2 N HEMOGLOBIN (test code = HGB) 7.7 gram/dL 11.5-15.5 L HEMATOCRIT (test code = HCT) 29.4 % 36.0-46.0 L MEAN CELL VOLUME (test code = MCV) 60.4 fL 80-98 L MEAN CELL HGB (test code = MCH) 15.8 picogram 27.0-33.0 L MEAN CELL HGB CONCETRATION (test code = MCHC) 26.2 gram/dL 33.0-36. 0 L RED CELL DISTRIBUTION WIDTH (test code = RDW) 20.2 % 11.6-16. 2 H PLATELET COUNT (test code = PLT) 276 K/mm3 150-450 N MEAN PLATELET VOLUME (test code = MPV) 9.4 fL 6.7-11.0 N - CT HEAD/BRAIN W/O [id number] 11:12:00 Name: UZMA REED [facility] : 1975 Age/S: 44 / F [address] [facility] Unit #: [id number] Loc: [place] [address] Phys: Saul Garcia MD Acct: [id number] Dis Date: Status: REG ER PHONE #: [phone] Exam Date: 05/22/2019 1011 FAX #: [phone] Reason: hit head, pain, hematoma EXAMS: CPT CODE: [id number] CT HEAD/BRAIN W/O CONT 18062 HISTORY: hit head, pain, hematoma TECHNIQUE: Noncontrast 2.[address] of the head. Examination acquired within 24 hours of arrival. Automated exposure control for dose reduction. COMPARISON: Noncontrast CT brain November 25, 2016 FINDINGS: No lacerations or contusions of the scalp or facial soft tissues. There are leads within the subcutaneous soft tissues overlying the bilateral temporal bones in the occipital bone. These leads are grossly unchanged in position. Calvarium and skull base are intact. No acute hemorrhage. No intracranial mass, mass effect, or midline shift. No effacement of the sulci or coleman-white matter interface. No cortical atrophy. No signs of white matter small-vessel disease. No hydrocephalus.. No extra-axial fluid collection. Visualized paranasal sinuses are clear other than a polyp in the right maxillary sinus. Mastoid air cells and middle ear cavities are clear. Orbital contents are unremarkable. IMPRESSION: No acute intracranial process or significant change from the prior exam. Location: [facility] at 1112 Reported and signed by: Robbie Ellis MD CC: Brayden Vogel MD; Saul Garcia MD Technologist:Wojciech Ricardo RT(R),(MR),(CT) CTDI: DLP: Trnscb Date/Time: 05/22/2019 (1112) t.[id number] Orig Print D/T: S: 05/22/2019 (1115) PAGE 1 Signed Report FE W/TOTAL IRON BINDING CAP.2018-04-29 08:06:00* Test Item Value Reference Range Interpretation Comments SERUM IRON (test code = IRON) 18 ug/dL 50-175 L TOTAL IRON BINDING CAPACITY (test code = TIBC) 405 mcg/dL 250-450 N IRON SATURATION (test code = FESAT) 4.44 % 13-45 L VITAMIN [id number] 13:48:00* Test Item Value Reference Range Interpretation Comments VITAMIN B12 (test code = VITB12) 280 pg/mL 193-986 N [id number] 13:48:00* Test Item Value Reference Range Interpretation Comments FERRITIN (test code = EMMETT) 11 ng/mL 8-388 N PROCALCITONIN (PCT)2018-04-28 01:50:00* Test Item Value Reference Range Interpretation Comments PROCALCITONIN (PCT) (test code = PROCAL) < 0.05 ng/ml Concentration Interpretation (ng/mL) <0.51 Sepsis is not likely. Local bacterial infection is possible. (LOW RISK for progression to Sepsis) 0.51 - 2.00 Sepsis is possible, but other conditions are known to elevate PCT as well. (MODERATE RISK for progression to Sepsis) > 2.00 Sepsis is likely, unless other causes are known. (HIGH RISK for progression to Severe Sepsis or Septic Shock) 10.00 High likelihood of Severe Sepsis or Septic or higher Shock. *Increased PCT levels may not always be related to systemic bacterial infection.*Low PCT levels do not automatically exclude the presence of bacterial infection.*All results should be interpreted taking into account the patients history. LACTIC [id number] 01:45:00* Test Item Value Reference Range Interpretation Comments LACTIC ACID (test code = LACT) 1.2 mmol/L 0.4-1.9 N BASIC METABOLIC [id number] 01:44:00* Test Item Value Reference Range Interpretation Comments SODIUM (test code = NA) 143 mmol/L 136-145 N POTASSIUM (test code = K) 3.4 mmol/L 3.5-5.1 L CHLORIDE (test code = CL) 108.0 mmol/L 98-107 H CARBON DIOXIDE (test code = CO2) 25.0 mmol/L 21-32 N ANION GAP (test code = GAP) 13.4 10-20 N GLUCOSE (test code = GLU) 83 mg/dL 74-106 N BLOOD UREA NITROGEN (test code = BUN) 8 mg/dL 7-18 N GLOMERULAR FILTRATION RATE (test code = GFR) > 60 mL/min >=60 Estimated GFR by using Modified MDRD formula.Chronic kidney disease is defined as either kidney damageor GFR <60 mL/min/1.73 m2 for >3 months. CREATININE (test code = CREAT) 0.70 mg/dL 0.55-1.02 N Note change in reference range due to change in reagent. BUN/CREATININE RATIO (test code = BUN/CREA) 10.8 10-20 N CALCIUM (test code = CA) 8.6 mg/dL 8.5-10.1 N HEPATIC FUNCTION [id number] 01:44:00* Test Item Value Reference Range Interpretation Comments TOTAL PROTEIN (test code = PROT) 7.0 gram/dL 6.4-8.2 N ALBUMIN (test code = ALB) 3.5 g/dL 3.4-5.0 N GLOBULIN (test code = GLOB) 3.5 gram/dL 2.7-4.2 N ALBUMIN/GLOBULIN RATIO (test code = A/G) 1.0 0.75-1.50 N BILIRUBIN TOTAL (test code = BILT) < 0.10 mg/dL 0.0-1.0 N BILIRUBIN DIRECT (test code = BILD) < 0.05 mg/dL 0.0-0.20 N SGOT/AST (test code = AST) 14 IUnit/L 15-37 L SGPT/ALT (test code = ALT) 15 IUnit/L 12-78 N ALKALINE PHOSPHATASE TOTAL (test code = ALKP) 83 IUnit/L 45-117 N Note change in reference range due to change in reagent. CBC W/AUTO [id number] 01:38:00* Test Item Value Reference Range Interpretation Comments WHITE BLOOD CELL (test code = WBC) 11.0 K/mm3 4.5-12.5 N RED BLOOD CELL (test code = RBC) 4.26 mill/mm3 3.7-5.2 N HEMOGLOBIN (test code = HGB) 9.4 gram/dL 11.5-15.5 L HEMATOCRIT (test code = HCT) 32.5 % 36.0-46.0 L MEAN CELL VOLUME (test code = MCV) 76.3 fL 80-98 L MEAN CELL HGB (test code = MCH) 22.1 picogram 27.0-33.0 L MEAN CELL HGB CONCETRATION (test code = MCHC) 28.9 gram/dL 33.0-36. 0 L RED CELL DISTRIBUTION WIDTH (test code = RDW) 17.2 % 11.6-16. 2 H RED CELL DISTRIBUTION WIDTH SD (test code = RDW-SD) 47.2 fL 37 .0-51.0 N PLATELET COUNT (test code = PLT) 257 K/mm3 150-450 N MEAN PLATELET VOLUME (test code = MPV) 10.3 fL 6.7-11.0 N NEUTROPHIL % (test code = NT%) 63.0 % 39.0-69.0 N IMMATURE GRANULOCYTE % (test code = IG%) 0.8 % 0.0-5.0 N LYMPHOCYTE % (test code = LY%) 25.7 % 25.0-55.0 N MONOCYTE % (test code = MO%) 7.7 % 0.0-10.0 N EOSINOPHIL % (test code = EO%) 2.1 % 0.0-5.0 N BASOPHIL % (test code = BA%) 0.7 % 0.0-1.0 N NUCLEATED RBC % (test code = NRBC%) 0.0 % 0-0 N NEUTROPHIL # (test code = NT#) 6.94 K/mm3 1.8-7.7 N IMMATURE GRANULOCYTE # (test code = IG#) 0.09 x10 3/uL 0-0.03 H LYMPHOCYTE # (test code = LY#) 2.83 K/mm3 1.0-5.0 N MONOCYTE # (test code = MO#) 0.85 K/mm3 0-0.8 H EOSINOPHIL # (test code = EO#) 0.23 K/mm3 0.0-0.5 N BASOPHIL # (test code = BA#) 0.08 K/mm3 0.0-0.2 N NUCLEATED RBC # (test code = NRBC#) 0.00 K/mm3 0.0-0.1 N MANUAL DIFF REQUIRED (test code = MDIFF) NO, ONLY SCAN NEEDED DIFFERENTIAL [id number] 01:38:00* Test Item Value Reference Range Interpretation Comments STAIN ACCEPTABILITY (test code = STN ACCEPTABLE) STAIN ACCEPTABLE POIKILOCYTOSIS (test code = POIK) 1+ ANISOCYTOSIS (test code = ANISO) 1+ MICROCYTOSIS (test code = MICR) 1+ PLATELET ESTIMATE (test code = PLTEST) ADEQUATE PLATELET MORPHOLOGY (test code = PLTMORPH) NORMAL CBC W/AUTO [id number] 01:24:00* Test Item Value Reference Range Interpretation Comments WHITE BLOOD CELL (test code = WBC) 11.0 K/mm3 4.5-12.5 N RED BLOOD CELL (test code = RBC) 4.26 mill/mm3 3.7-5.2 N HEMOGLOBIN (test code = HGB) 9.4 gram/dL 11.5-15.5 L HEMATOCRIT (test code = HCT) 32.5 % 36.0-46.0 L MEAN CELL VOLUME (test code = MCV) 76.3 fL 80-98 L MEAN CELL HGB (test code = MCH) 22.1 picogram 27.0-33.0 L MEAN CELL HGB CONCETRATION (test code = MCHC) 28.9 gram/dL 33.0-36. 0 L RED CELL DISTRIBUTION WIDTH (test code = RDW) 17.2 % 11.6-16. 2 H RED CELL DISTRIBUTION WIDTH SD (test code = RDW-SD) 47.2 fL 37 .0-51.0 N PLATELET COUNT (test code = PLT) 257 K/mm3 150-450 N MEAN PLATELET VOLUME (test code = MPV) 10.3 fL 6.7-11.0 N NEUTROPHIL % (test code = NT%) 63.0 % 39.0-69.0 N IMMATURE GRANULOCYTE % (test code = IG%) 0.8 % 0.0-5.0 N LYMPHOCYTE % (test code = LY%) 25.7 % 25.0-55.0 N MONOCYTE % (test code = MO%) 7.7 % 0.0-10.0 N EOSINOPHIL % (test code = EO%) 2.1 % 0.0-5.0 N BASOPHIL % (test code = BA%) 0.7 % 0.0-1.0 N NUCLEATED RBC % (test code = NRBC%) 0.0 % 0-0 N NEUTROPHIL # (test code = NT#) 6.94 K/mm3 1.8-7.7 N IMMATURE GRANULOCYTE # (test code = IG#) 0.09 x10 3/uL 0-0.03 H LYMPHOCYTE # (test code = LY#) 2.83 K/mm3 1.0-5.0 N MONOCYTE # (test code = MO#) 0.85 K/mm3 0-0.8 H EOSINOPHIL # (test code = EO#) 0.23 K/mm3 0.0-0.5 N BASOPHIL # (test code = BA#) 0.08 K/mm3 0.0-0.2 N NUCLEATED RBC # (test code = NRBC#) 0.00 K/mm3 0.0-0.1 N MANUAL DIFF REQUIRED (test code = MDIFF) NO, ONLY SCAN NEEDED DIFFERENTIAL [id number] 01:24:00* Test Item Value Reference Range Interpretation Comments STAIN ACCEPTABILITY (test code = STN ACCEPTABLE) MORPHOLOGY COMMENT (test code = MOC) PLATELET ESTIMATE (test code = PLTEST) PLATELET MORPHOLOGY (test code = PLTMORPH) CBC W/AUTO [id number] 01:23:00* Test Item Value Reference Range Interpretation Comments WHITE BLOOD CELL (test code = WBC) 11.0 K/mm3 4.5-12.5 N RED BLOOD CELL (test code = RBC) 4.26 mill/mm3 3.7-5.2 N HEMOGLOBIN (test code = HGB) 9.4 gram/dL 11.5-15.5 L HEMATOCRIT (test code = HCT) 32.5 % 36.0-46.0 L MEAN CELL VOLUME (test code = MCV) 76.3 fL 80-98 L MEAN CELL HGB (test code = MCH) 22.1 picogram 27.0-33.0 L MEAN CELL HGB CONCETRATION (test code = MCHC) 28.9 gram/dL 33.0-36. 0 L RED CELL DISTRIBUTION WIDTH (test code = RDW) 17.2 % 11.6-16. 2 H RED CELL DISTRIBUTION WIDTH SD (test code = RDW-SD) 47.2 fL 37 .0-51.0 N PLATELET COUNT (test code = PLT) 257 K/mm3 150-450 N MEAN PLATELET VOLUME (test code = MPV) 10.3 fL 6.7-11.0 N NEUTROPHIL % (test code = NT%) 63.0 % 39.0-69.0 N IMMATURE GRANULOCYTE % (test code = IG%) 0.8 % 0.0-5.0 N LYMPHOCYTE % (test code = LY%) 25.7 % 25.0-55.0 N MONOCYTE % (test code = MO%) 7.7 % 0.0-10.0 N EOSINOPHIL % (test code = EO%) 2.1 % 0.0-5.0 N BASOPHIL % (test code = BA%) 0.7 % 0.0-1.0 N NUCLEATED RBC % (test code = NRBC%) 0.0 % 0-0 N NEUTROPHIL # (test code = NT#) 6.94 K/mm3 1.8-7.7 N IMMATURE GRANULOCYTE # (test code = IG#) 0.09 x10 3/uL 0-0.03 H LYMPHOCYTE # (test code = LY#) 2.83 K/mm3 1.0-5.0 N MONOCYTE # (test code = MO#) 0.85 K/mm3 0-0.8 H EOSINOPHIL # (test code = EO#) 0.23 K/mm3 0.0-0.5 N BASOPHIL # (test code = BA#) 0.08 K/mm3 0.0-0.2 N NUCLEATED RBC # (test code = NRBC#) 0.00 K/mm3 0.0-0.1 N MANUAL DIFF REQUIRED (test code = MDIFF) NO, ONLY SCAN NEEDED DIFFERENTIAL [id number] 01:23:00* Test Item Value Reference Range Interpretation Comments STAIN ACCEPTABILITY (test code = STN ACCEPTABLE) CABOT RINGS (test code = CAB) MORPHOLOGY COMMENT (test code = MOC) PLATELET ESTIMATE (test code = PLTEST) PLATELET MORPHOLOGY (test code = PLTMORPH) CBC W/AUTO [id number] 01:23:00* Test Item Value Reference Range Interpretation Comments WHITE BLOOD CELL (test code = WBC) 11.0 K/mm3 4.5-12.5 N RED BLOOD CELL (test code = RBC) 4.26 mill/mm3 3.7-5.2 N HEMOGLOBIN (test code = HGB) 9.4 gram/dL 11.5-15.5 L HEMATOCRIT (test code = HCT) 32.5 % 36.0-46.0 L MEAN CELL VOLUME (test code = MCV) 76.3 fL 80-98 L MEAN CELL HGB (test code = MCH) 22.1 picogram 27.0-33.0 L MEAN CELL HGB CONCETRATION (test code = MCHC) 28.9 gram/dL 33.0-36. 0 L RED CELL DISTRIBUTION WIDTH (test code = RDW) 17.2 % 11.6-16. 2 H RED CELL DISTRIBUTION WIDTH SD (test code = RDW-SD) 47.2 fL 37 .0-51.0 N PLATELET COUNT (test code = PLT) 257 K/mm3 150-450 N MEAN PLATELET VOLUME (test code = MPV) 10.3 fL 6.7-11.0 N NEUTROPHIL % (test code = NT%) 63.0 % 39.0-69.0 N IMMATURE GRANULOCYTE % (test code = IG%) 0.8 % 0.0-5.0 N LYMPHOCYTE % (test code = LY%) 25.7 % 25.0-55.0 N MONOCYTE % (test code = MO%) 7.7 % 0.0-10.0 N EOSINOPHIL % (test code = EO%) 2.1 % 0.0-5.0 N BASOPHIL % (test code = BA%) 0.7 % 0.0-1.0 N NUCLEATED RBC % (test code = NRBC%) 0.0 % 0-0 N NEUTROPHIL # (test code = NT#) 6.94 K/mm3 1.8-7.7 N IMMATURE GRANULOCYTE # (test code = IG#) 0.09 x10 3/uL 0-0.03 H LYMPHOCYTE # (test code = LY#) 2.83 K/mm3 1.0-5.0 N MONOCYTE # (test code = MO#) 0.85 K/mm3 0-0.8 H EOSINOPHIL # (test code = EO#) 0.23 K/mm3 0.0-0.5 N BASOPHIL # (test code = BA#) 0.08 K/mm3 0.0-0.2 N NUCLEATED RBC # (test code = NRBC#) 0.00 K/mm3 0.0-0.1 N MANUAL DIFF REQUIRED (test code = MDIFF) NO, ONLY SCAN NEEDED DIFFERENTIAL [id number] 01:23:00* Test Item Value Reference Range Interpretation Comments STAIN ACCEPTABILITY (test code = STN ACCEPTABLE) MORPHOLOGY COMMENT (test code = MOC) PLATELET ESTIMATE (test code = PLTEST) PLATELET MORPHOLOGY (test code = PLTMORPH) CBC W/AUTO [id number] 01:23:00* Test Item Value Reference Range Interpretation Comments WHITE BLOOD CELL (test code = WBC) 11.0 K/mm3 4.5-12.5 N RED BLOOD CELL (test code = RBC) 4.26 mill/mm3 3.7-5.2 N HEMOGLOBIN (test code = HGB) 9.4 gram/dL 11.5-15.5 L HEMATOCRIT (test code = HCT) 32.5 % 36.0-46.0 L MEAN CELL VOLUME (test code = MCV) 76.3 fL 80-98 L MEAN CELL HGB (test code = MCH) 22.1 picogram 27.0-33.0 L MEAN CELL HGB CONCETRATION (test code = MCHC) 28.9 gram/dL 33.0-36. 0 L RED CELL DISTRIBUTION WIDTH (test code = RDW) 17.2 % 11.6-16. 2 H RED CELL DISTRIBUTION WIDTH SD (test code = RDW-SD) 47.2 fL 37 .0-51.0 N PLATELET COUNT (test code = PLT) 257 K/mm3 150-450 N MEAN PLATELET VOLUME (test code = MPV) 10.3 fL 6.7-11.0 N NEUTROPHIL % (test code = NT%) 63.0 % 39.0-69.0 N IMMATURE GRANULOCYTE % (test code = IG%) 0.8 % 0.0-5.0 N LYMPHOCYTE % (test code = LY%) 25.7 % 25.0-55.0 N MONOCYTE % (test code = MO%) 7.7 % 0.0-10.0 N EOSINOPHIL % (test code = EO%) 2.1 % 0.0-5.0 N BASOPHIL % (test code = BA%) 0.7 % 0.0-1.0 N NUCLEATED RBC % (test code = NRBC%) 0.0 % 0-0 N NEUTROPHIL # (test code = NT#) 6.94 K/mm3 1.8-7.7 N IMMATURE GRANULOCYTE # (test code = IG#) 0.09 x10 3/uL 0-0.03 H LYMPHOCYTE # (test code = LY#) 2.83 K/mm3 1.0-5.0 N MONOCYTE # (test code = MO#) 0.85 K/mm3 0-0.8 H EOSINOPHIL # (test code = EO#) 0.23 K/mm3 0.0-0.5 N BASOPHIL # (test code = BA#) 0.08 K/mm3 0.0-0.2 N NUCLEATED RBC # (test code = NRBC#) 0.00 K/mm3 0.0-0.1 N MANUAL DIFF REQUIRED (test code = MDIFF) NO, ONLY SCAN NEEDED DIFFERENTIAL [id number] 01:23:00* Test Item Value Reference Range Interpretation Comments STAIN ACCEPTABILITY (test code = STN ACCEPTABLE) CABOT RINGS (test code = CAB) MORPHOLOGY COMMENT (test code = MOC) PLATELET ESTIMATE (test code = PLTEST) PLATELET MORPHOLOGY (test code = PLTMORPH) - XR CHEST 1 [id number] 23:30:00 FAX: Dilma Amos DO [place]: B St: REG Name: Niko READNELIALEVUZMASTEVE WATT [facility] : [birth year] Age/S: 43/F [address] [facility] Unit #: [id number] Loc: [place] [address] Phys: Dilma Amos DO Acct: [id number] Dis Date: Status: REG ER PHONE #: [phone] Exam Date: 04/27/2018 2324 FAX #: [phone] Reason: syncope EXAMS: CPT CODE: [id number] XR CHEST 1 V 84550 EXAM: - XR CHEST 1 V HISTORY: Syncope. COMPARISON: September 27, 2017. FINDI NGS: Single AP view of the chest is provided. Heart size and vascularity are within normal limits. The lungs are clear of focal conso lidation. No effusion, pneumothorax, or acute osseous abnormality. There is no significant change compared to previous exam. IMPRES ELLIE: No radiographic evidence of acute cardiopulmonary process. at 2330 Reported and signed by: Ponce Hopper MD CC: Dilma Amos DO Technologist: Machelle Pikerd Date/Time/By: 04/27/2018 (9804) : By: [email or web address] Orig Print D/T: S: 04/27/2018 (5970) PAGE 1 Signed Report URINE [id number] 21:34:00Negative (03/02/16 3:34 PM)[facility] WVAECHTWZDMES3316-35-35 21:33:00<1[facility] WZSLJ8336-13-17 20:46:00 132[facility] XXWYA8439-16-22 20:46:0031[facility] PANEL 2015-10-09 20:46:0083[facility] DFVMU9945-50-15 20:46:000.4[facility] GXAUP9691-67-06 20:46:006[facility] ANXVX4843-28-54 20:46:003.4[facility] OVVPM6982-19-60 20:46:0013[facility] QDZCK5838-96-45 20:46:28635Gibzctvj HermannCHEM ZMZCL2642-26-52 20:46:0027 [facility] DRGQS8807-05-50 20:46:0091[facility] PANEL 2015-10-09 20:46:007.4[facility] OZOTV9199-84-56 20:46:004.1[facility] LFDGH8499-39-68 20:46:0060[facility] AZLNR6427-78-99 20:46:008.9[facility] GEDTY1302-81-03 20:46:16973Rqfowyzs [facility]annCHE[facility] UJOQU4704-47-43 20:46:009[facility] LQDCK3478-14-92 20:46:000.88 [facility] YCBQR5526-31-61 20:46:0010.4[facility]ann[facility] PANEL 2015-10-09 20:46:0010[facility] POJSA6112-77-44 20:46:003.3[facility] LSUCQ8266-69-54 20:46:001.2[facility] AyjbtsjNCPEROJKPAQKV1253-53-08 20:46:00Negative *NA*(10/09/15 3:46 PM)[facility] ZplboraTEJFAGRTNB7736-93-11 20:46:001+ *ABN*(10/09/15 3:46 PM)[facility] OawbhdtZRKECCEQMU4613-57-09 20:46:00 0.1[facility] QphjepiCIVWSGBHPY1253-25-61 20:46:000.6[facility]annHEMATOLOGY 2015-10-09 20:46:007.8[facility] JcoapgfDIAZOJASLL9426-70-89 20:46:000.9[facility] TiqxuvkLUUUULMCJA7675-66-84 20:46:002.2[facility] KhnmfqtIAKRUVRKFS6286-20-16 20:46:000.2[facility] SptndlzLDXIPTRXVZ7396-48-75 20:46:005.5[facility] [place] GNYFFSJYIS2256-13-76 20:46:0020.9[facility] AvsjzayRCRHVEPUPV2085-35-80 20:46:00 72.5[facility] MfldxtrOTWEZZSCNI9871-46-40 20:46:00* Test Item Value Reference Range Interpretation Comments PT (test code = PT) 14.2 s 12.0-14.7 [facility] UzcguzvDYYPPJJOVX5139-04-59 20:46:001.07[facility]annHEMATOLOGY 2015-10-09 20:46:00* Test Item Value Reference Range Interpretation Comments MCH (test code = MCH) 23.0 pg 27.0-31.0 [facility] UvhfnmfQEFWOTUOAP4946-07-13 20:46:0072.9[facility]annHEMATOLOGY 2015-10-09 20:46:0010.7[facility] EqdflnjAATSGKDEPV7505-39-04 20:46:0037.9[facility] BwnzfowDQSVPMFAMW5285-49-51 20:46:005.19[facility] XtffnwnGMQLZXIKKO6846-97-53 20:46:0011.9[facility] LlawsxsTCTCDDXKLB1982-39-17 20:46:58681Zueijhmp [place] REQAEVRGFC3395-65-98 20:46:008.1[facility] KoejqbmGGAZIDEKOJ1743-11-16 20:46:00 20.0[facility] KlmqftsWQJXHVUULQ3495-00-55 20:46:0031.6[facility]annHEMATOLOGY 2015-10-09 20:46:00* Test Item Value Reference Range Interpretation Comments PTT (test code = PTT) 28.7 s 22.9-35.8 [facility] DPBZI1172-74-14 20:46:002[facility] UTOJA7010-54-25 20:46:0056[facility] HCHMV8376-97-35 20:46:005 [facility] IAYDS2106-27-38 20:46:00Negative (10/09/15 3:46 PM) [facility] XIZLC8769-96-35 20:46:00Negative *NA*(10/09/15 3:46 PM) [facility] PBFEC6142-86-01 20:46:00Large *ABN*(10/09/15 3:46 PM) [facility] ZYMWO8077-88-34 20:46:00Negative (10/09/15 3:46 PM) [facility] YEDUN6681-54-20 20:46:00Slight *ABN*(10/09/15 3:46 PM) [facility] LZTPS2154-32-41 20:46:005.0[facility] LXPXM1747-29-38 20:46:001.028[facility] EBYDQ5422-75-57 20:46:00 Yellow *NA*(10/09/15 3:46 PM)[facility] UjgmfjyNGSFCLHJA8854-04-16 21:25:00Negative (07/22/2012 16:25:00) [facility] WzibuilPJPOKWYAS3445-51-03 17:32:002.1[facility] FgvkjynXQRHSXQOK0321-18-77 17:32:009.0[facility] RlzlhfuFQHJLYBML3344-33-55 17:32:004.3[facility] UcarxxrKPTUHFHOV9984-52-94 17:32:74169Zuaveytq [facility] JUXRFVYIV8433-47-38 17:32:0027[facility] HaajcdtWRKAQDJKF2726-51-12 17:32:71468 [facility] JedbnpeYEAKBWGPI8799-75-74 17:32:001.0[facility] HermannCHEMISTRY 2011-06-15 17:32:0011[facility] UgbrmtwQNAHZSWBF5208-28-73 17:32:0099[facility] CjmzhtrOFMUZWLWQ5320-50-00 17:32:0014.3[facility] KvabsnhKSNOLBCKJV5861-41-98 17:32:91218Rvlunwja TsfphwkGSNQGBYNWN9545-76-06 17:32:007.6[facility] PAHRNLZRVB6132-43-34 17:32:0010.6[facility] PaxljvvWHAIKYPPGW3545-85-22 17:32:00 10.1[facility] TvfwifeJWNNNDAGJZ2838-37-43 17:32:0073.9[facility]annHEMATOLOGY 2011-06-15 17:32:004.35[facility] QyoxjpxCKIRAUZVDX6844-25-81 17:32:0032.2[facility] QmeleezDYDCAGDGZP0307-92-20 17:32:00* Test Item Value Reference Range Interpretation Comments MCH (test code = MCH) 23.3 pg 27.0-31.0 L [facility] RtvuvdnHELKAFZYUG0583-03-74 17:32:0031.5[facility]annHEMATOLOGY 2011-06-15 17:32:0019.5[facility] ChivzzlWDXKBENOMY4318-92-51 17:32:0074.2[facility] SgnhcgbAVDARWPOYV0095-60-40 17:32:0012.9[facility] WubhhivOOFKUHZNYB8444-50-69 17:32:0010.1[facility] KndacojBGETBZEARG0240-37-49 17:32:007.8[facility] YUDEAQDGPW7768-69-51 17:32:000.3[facility] MyvkuleDLLEFOCNDV6825-33-23 17:32:002.5 [facility] GzedbiyKQCQVEDXEK4376-42-41 17:32:001.4[facility]annHEMATOLOGY 2011-06-15 17:32:000.0[facility] AqejjvlZUYQRPFOXU5839-30-05 17:32:000.3[facility] MqhopqpQRJBPCELUH6142-11-24 17:32:001.1[facility] FyjwofuESMXRGFRX8693-66-66 10:33:001.7[facility] QbujanzQUJOCRCFL3230-96-76 10:33:0014.4[facility] [place] QSSOYFFLU1686-19-11 10:33:005[facility] GhkenilUEWHBWWYH5474-36-40 10:33:000.8 [facility] YisjeufXINDNRURP1321-20-79 10:33:11022Dxzbqvou HermannCHEMISTRY 2011-06-13 10:33:003.4[facility] VzcayxoNNIMJYPMI8550-41-52 10:33:33830Hxwuxsxi BfupyhyHJZXJBKCB6078-73-77 10:33:007.4[facility] QsoiwqtBSDUPISLH2011-37-05 10:33:0026[facility] EzezkijCVDGXQPDU3124-91-93 10:33:79717Esjsveqz [facility] SNUTUXBQMH7250-81-20 10:33:0022.8[facility] NhqmjbsPKCMNRVCOW9885-17-04 10:33:00 65.9[facility] NujfifaHOFHPWLTHJ9029-65-64 10:33:003.0[facility]annHEMATOLOGY 2011-06-13 10:33:000.4[facility] KzeodbkBNXBQKKYIA1689-22-06 10:33:005.7[facility] HjkzucvQUFICTCDOS0341-28-12 10:33:002.0[facility] CwsaozrXAWWMELITG3027-76-29 10:33:007.9[facility] XbetywtZMVJLQMBYI9757-74-58 10:33:000.7[facility] XEUMKOGRJC0400-33-82 10:33:000.3[facility] YwsxdfoESCVFXGSUR8126-29-49 10:33:000.0 [facility] NgnpcgeLSVKZDOBLP5565-68-34 10:33:0073.5[facility]annHEMATOLOGY 2011-06-13 10:33:00* Test Item Value Reference Range Interpretation Comments MCH (test code = MCH) 23.5 pg 27.0-31.0 L [facility] PmrkztcCYWHFQAKTK5733-19-82 10:33:0031.9[facility]annHEMATOLOGY 2011-06-13 10:33:04358Ygfdfzqz UmlflziQVBGFMTXEX5555-26-73 10:33:0019.3[facility] IzukmmfYARNRNDGHC9358-31-45 10:33:007.8[facility] HcnscrtYKPMHLLMKH8535-22-23 10:33:003.57[facility] ZzfxogbFVVCDWQWQL4362-08-74 10:33:008.4[facility] FTDQIUEESH3093-76-85 10:33:0026.2[facility] TzaqgqvVFSTCPFWBS1570-32-89 10:33:00 8.7[facility] PdxfditMSLHENAYLG8887-40-53 10:33:0016.5[facility] HermannHEMATOLOGY 2011-06-11 12:15:002.4[facility] GehofsiEUKBNBQWJQ3761-55-30 12:15:000.2[facility] HrzveftVXPHVTOOLT2774-31-08 12:15:007.8[facility] DwnmzqjLLPCNVIZNW1290-90-48 12:15:002.3[facility] YxotwhjLRQREFHGVF7205-92-24 12:15:000.7[facility] EUCSAYTOZV4978-23-02 12:15:000.3[facility] LhhzelzWVLVEBBVTE9651-02-03 12:15:006.7 [facility] WtondouUSQWKAWFBR7228-08-89 12:15:000.0[facility]annHEMATOLOGY 2011-06-11 12:15:0070.1[facility] VdkxtfbFNIQWWPSLE8704-18-79 12:15:0020.6[facility] JqctentZEIMPSJSHW7991-33-31 12:15:0029.3[facility] QfczbimLMDQAPCMXZ1824-85-03 12:15:0073.7[facility] SpxzrgoKPWXLXOROT1477-00-48 12:15:0011.1[facility] [place] LKSKXBIXYC1379-36-35 12:15:003.98[facility] XojqgwgMAMZZDFQMD3963-35-43 12:15:00 9.3[facility] BmssvzdWTBSALCBKQ7179-68-36 12:15:00* Test Item Value Reference Range Interpretation Comments MCH (test code = MCH) 23.3 pg 27.0-31.0 L [facility] LvrvxkhKHILGIDHZM1375-18-13 12:15:0031.7[facility]annHEMATOLOGY 2011-06-11 12:15:0019.6[facility] VsivaxkOMQVPPCPBO0093-08-05 12:15:70031Qvqxbspq CewgarbETGMHMAPGE7229-37-84 12:15:008.3[facility] WujaldlNZBJKCREW0037-41-04 19:42:212006Pzqtyaxs YiqjzvxQNHMMEHXF5811-93-03 19:42:0016.0[facility] [place] KXDWCPXGQ0190-21-44 14:00:865504Esykuyya JmbwzxuCDIABRMCO9443-74-62 14:00:006.0 [facility] JnlsnbtJBBBJNORG5623-31-34 09:18:005[facility] IpvagqoJFVWFECZV2405-68-30 09:18:000.3[facility] MmkixwkCNOXKUJBR9752-07-02 09:18:006.4[facility] DLFXONUNW5178-41-46 09:18:002.7[facility] LiurzxjHSNASHEJE9506-31-34 09:18:0059 [facility] OcswertBHKYABCHF5280-65-47 09:18:0013[facility]annCHEMISTRY 2011-06-10 09:18:81948Jhwaellr XszfacpKCGDWIGXT4243-67-39 09:18:008.4[facility] ElaqofvJPWQQYLLC3253-18-56 09:18:0032[facility] WlingqnKKYWNKXBI3536-17-04 09:18:03035Dliygmkb DrlwufcBFWSVIEGX2992-31-01 09:18:005[facility] MZXEGAUEV8127-09-79 09:18:000.9[facility] CnniefcVSGFIILWQ5663-67-74 09:18:003.5 [facility] ScbtdqyCHUPYTDCN9483-11-87 09:18:79393Ganknnvv HermannCHEMISTRY 2011-06-10 09:18:000.7[facility] GiaaykxNGHLSVLUQ6827-60-56 09:18:006[facility] ZqamplgEYFJQYMVV5689-99-46 09:18:009.5[facility] MireeebJLAOGMNEC4766-06-10 09:18:003.7Memnrimt BuvshlxGGLKYWAOUH7146-10-74 22:46:00* Test Item Value Reference Range Interpretation Comments PT (test code = PT) 14.5 s 12.0-14.7 [facility]AryvhprSSZAERTWHY9200-70-48 22:46:001.13[facility]annHEMATOLOG[facility] 2011-06-09 22:46:00* Test Item Value Reference Range Interpretation Comments PTT (test code = PTT) 28.5 s 22.9-35.8 N [facility] CcvaxmuWLVKPIBKZ3303-63-06 18:10:00Negative (06/09/2011 13:10:00) [facility] HospitalZihcbfnZMOFIGFXCI4994-06-33 18:10:00None Seen (06/09/2011 13:10:00) [facility] HospitalDzdjussDGZUBDJMJU8654-81-58 18:10:00Occasional /HPF (06/09/2011 13:10:00) [facility] HospitalTanzaskYIJSHPURUF1865-85-34 18:10:00Moderate /LPF *ABN*(06/09/2011 13:10:00) [facility] HospitalQuvlnvmCLYVUONGAR1470-16-34 18:10:000-2 /HPF (06/09/2011 13:10:00) [facility] HospitalEyxtmtuYWKDKNRZVH8582-87-15 18:10:00 Negative (06/09/2011 13:10:00) [facility] HospitalZnmcibzLKDSUTYAHQ0067-22-85 18:10:00 Negative (06/09/2011 13:10:00) [facility] HospitalLjbtqiuSLWPOMRKQG7002-25-38 18:10:00 Negative *NA*(06/09/2011 13:10:00) [facility] HospitalTrsdplmMNCSYWPIJV8532-66-76 18:10:00Small *ABN*(06/09/2011 13:10:00) [facility] HospitalDnkrmnxUYNDXNKPWR7101-23-45 18:10:00Negative *NA*(06/09/2011 13:10:00) [facility] HospitalZohxxerRSCCFJPNOK5939-86-67 18:10:00Negative (06/09/2011 13:10:00) [facility] PkraxtzCNNMKPZKAP9000-34-02 18:10:00Negative (06/09/2011 13:10:00) [facility] UtzxjbtBUYSCTOVFV8369-30-88 18:10:000.2[facility] PsqhcxeWKNDXZWXHH2520-81-71 18:10:00* Test Item Value Reference Range Interpretation Comments UA Spec Grav (test code = UA Spec Grav) 1.025 1 N [facility] ZkpqneuQIDQWAHSVI4732-77-22 18:10:00* Test Item Value Reference Range Interpretation Comments UA pH (test code = UA pH) 5.0 1 5.0-8.0 N [facility] IpmhehzXRPJQCYPWM0763-18-90 18:10:00Yellow *NA*(06/09/2011 13:10:00) [facility] WeggbbuQIRGHKBTTT6143-19-68 18:10:00Clear (06/09/2011 13:10:00) [facility]BACT[facility] - SSUYDSLF7370-52-82 18:00:00Positive 1, 2*ABN*(06/09/2011 13:00:00) [facility] KzuxsijMBZCNYPWC6056-10-62 10:50:007 [facility] OqszyfyXLOBOPHWJ7019-50-49 10:50:001.1[facility] HermannCHEMISTRY 2011-06-09 10:50:002.9[facility] CbmrnxhQJZESHRCN4343-38-03 10:50:005[facility] AbvgidlRIYWAHLDM7723-01-20 10:50:000.3[facility] DqgkezoOQGXADXKK8945-18-11 10:50:0068[facility] WwpiyymBOTDNSRNK3593-99-62 10:50:003.3[facility] Rolando LYCYRYTKJ6824-77-30 10:50:0014[facility] WkznfjlUTAKGPALV0459-84-50 10:50:006.2 [facility] JwiaklyAXAHKYGJGX4528-97-67 10:50:00Normal (06/09/2011 05:50:00) [facility] QaslqidWPWAOKEFCH2658-16-33 10:50:00Slight (06/09/2011 05:50:00) [facility] EokipyoNAFJNMAKWI4232-03-65 10:50:00Slight *ABN*(06/09/2011 05:50:00) [facility]MCWJRUQDNP6211[facility]63-27 10:50:00Slight (06/09/2011 05:50:00) [facility]
--- OUTSIDE RECORDS SUMMARY | 2019-12-31 10:49 | XMS REPORT | Continuity of Care Document ---
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 2MRSA PCR+ on 06/09/2011. 3Problem added by Discern Expert. [facility] Methicillin resistant Staphylococcus aureus (organism) Active 06/09/2011 Problem 03/05/2016 MRSA in groin absce ss on 06/09/2011. MRSA PCR+ on 06/09/2011. Problem added by Discern Expert. [facility] MULTIPLE ABSCESSES Active 06/09/[address] [facility] CELLULITIS, ABSCESS Active 06/08/[address] [facility] Insomnia (disorder) Active 09/23/2008 Problem 03/05/2016 Data migrated from [employer] on . Data migrated from [employer] on 08/19/14. [facility] Cervico-occipital neuralgia (finding) Active 06/02/2008 Problem 03/05/2016 Data migrated from [employer] on . Data migrated from [employer] on 08/19/14. [facility] Chronic pain syndrome (disorder) Active 06/02/2008 Problem 03/05/2016 Data migrated from [employer] on . Data migrated from [employer] on 08/19/14. [facility] Anxiety Active Problem 07/24/[address] [facility] Depression Active Problem 07/24/[address] [facility] Endometriosis Active Problem 06/18/[address] [facility] HTN - Hypertension Active Problem 06/18/[address] [facility] Irritable bowel syndrome Active Problem 07/24/[address] [facility] Endometriosis Active Problem 07/24/[address] [facility] HTN - Hypertension Active Problem 07/24/[address] [facility] Endometriosis (morphologic abnormality) Active Problem 10/12/[address] [facility] Anxiety (finding) Active Problem 03/05/2016 [facility] Anxiety disorder (disorder) Ac tive Problem Data migrated from [employer] on . Data migrated from [employer] on 08/19/14. [facility] Benign hypertension (disorder) Active Problem Data migrated from [employer] on . Data migrated from [employer] on 08/19/14. [facility] Depression (finding) Active Problem 03/05/2016 [facility] Depressive disorder (disorder) Active Problem Data migrated from [employer] on . Data migrated from [employer] on 08/19/14. [facility] Endometriosis (disorder) Resol lefty Problem [facility] Headache (finding) Active Problem 03/05/2016 Data migrated from [employer] on . Data migrated from [employer] on 08/19/14. [facility] Hypertensive disorder, systemic arterial (disorder) Active Problem 03/05/2016 [facility] Irritable colon (disorder) Act eufemia Problem [facility] Migraine (disorder) Resolved Problem 03/05/2016 [facility] CELLULITIS NOS Active [facility] SOB Active [facility] Medications Medication Details Route Status Patient Instructions Ordering Provider Order Date Source Promethazine 6.25 mg, Route: I VPB, ONCE, Dosing Weight 80.909, kg, Priority: STAT, Start date: 03/02/16 14:23:00 ON SITE NURSE, Stop date: 03/02/16 14:23:00 ON SITE NURSE Inactive 03/02/2016 [facility] Dilaudid 0.5 mg, Route: IVP, O NCE, Dosing Weight 80.909, kg, Priority: STAT, Start date: 03/02/16 14:20:00 ON SITE NURSE, Stop date: 03/02/16 14:20:00 ON SITE NURSE Inactive 03/02/2016 [facility] Reglan 10 mg, Route: IVP, Drug form: INJ, ONCE, Dosing Weight 80.909, kg, Priority: STAT, Start date: 03/02/16 11:39:00 ON SITE NURSE, Stop date: 03/02/16 11:39:00 ON SITE NURSE Inactive 03/02/2016 [facility] Benadryl 25 mg, Route: IVP, ON CE, Dosing Weight 80.909, kg, Priority: STAT, Start date: 03/02/16 11:22:00 ON SITE NURSE, Stop date: 03/02/16 11:22:00 ON SITE NURSE Inactive 03/02/2016 [facility] Ondansetron 4 mg, Route: IVP, Drug form: INJ, ONCE, Dosing Weight 80.909, kg, Priority: STAT, Start date: 03/02/16 11:21:00 ON SITE NURSE, Stop date: 03/02/16 11:21:00 ON SITE NURSE Inactive 03/02/2016 [facility] nter Morphine 4 mg, Route: IVP, ONC E, Dosing Weight 80.909, kg, Priority: STAT, Start date: 03/02/16 11:21:00 ON SITE NURSE, Stop date: 03/02/16 11:21:00 ON SITE NURSE Inactive 03/02/2016 [facility] lisinopril 20 mg oral tablet 2 0 mg = 1 tab, PO, Daily, # 30 tab, 0 Refill(s) Active 03/02/2016 [facility] Imitrex ONCE, 0 Refill(s) Active 03/02/2016 [facility] nter Morphine 4 mg, Route: IVP, Garry g form: INJ, ONCE, Dosing Weight 81.818, kg, Priority: STAT, Start date: 10/09/15 17:54:00 CDT, Stop date: 10/09/15 17:54:00 CDT Inactive 10/09/[address] [facility] Levsin 0.25 mg, Route: IV, ONC E, Dosing Weight 81.818, kg, Start date: 10/09/15 16:11:00 CDT, Stop date: 10/09/15 16:11:00 CDT Inactive 10/09/[address] [facility] Phenergan Notes: Do not give I V push. (Same as: Phenergan) Inactive 10/09/[address] [facility] Bentyl Notes: (Same as: Bentyl) Inactive 10/09/[address] [facility] Ondansetron Notes: (Same as: [place]) MEDICATION WASTE Product Size: 4 mg Product Wasted: ___ mg Inactive 10/09/[address] [facility] Saline Flush 0.9% Notes: (Same as: BD Posiflush) Inactive 10/09/[address] [facility] Sodium Chloride 0.154 MEQ/ML Injectable Solution 1,000 mL, 2,000 ml/hr, Infuse Over: 30 minutes, Route: IV, 1,000, Drug form: INJ, ONCE, Priority: STAT, Dosing Weight 81.818 kg, Start date: 10/09/15 14:38:00 CDT, Duration: 1 doses or times, Stop date: 10/09/15 14:38:00 CDT Inactive 10/09/[address] [facility] Robaxin 500 mg oral tablet 1,0 00 mg, 2 tab, PO, QID, 56 tab, Substitution Allowed, TAB PO Active [facility] 07/22/[address] [facility] Ultracet oral tablet 1 tab, PO , Q4H, PRN, 20 tab, for pain, Substitution Allowed, Maintenance, TAB PO Active [facility] 07/22/[address] [facility] morphine Sulfate 2 mg, Route: IM, Drug form: INJ, ONCE, Dosing Weight 90, kg, Priority: STAT, Start date: 07/22/12 18:29:00, Stop date: 07/22/12 18:29:00 IM No Longer Active [facility] 07/22/[address] [facility] orphenadrine 60 mg, Route: IM, ONCE, Dosing Weight 90, kg, Priority: STAT, Start date: 07/22/12 15:51:00, Stop date: 07/22/12 15:51:00 IM No Longer Active [facility] 07/[address] [facility] morphine Sulfate 4 mg, 2 mL, R oute: IM, Drug form: INJ, ONCE, Dosing Weight 90, kg, Priority: STAT, Start date: 07/22/12 15:51:00, Stop date: 07/22/12 15:51:00 IM No Longer Active [facility] 07/22/[address] [facility] ondansetron 4 mg oral tablet, disintegrating 4 mg, 1 tab, Route: PO, Drug form: TABDIS, ONCE, Dosing Weight 90, kg, Priority: STAT, Start date: 07/22/12 15:51:00, Stop date: 07/22/12 15:51:00 PO No Longer Active [facility] 07/22/[address] [facility] zinc sulfate 220 mg oral capsule 220 mg, 1 cap, PO, BID, 30 cap, Substitution Allowed, Maintenance, CAP PO Active [facility] 06/14/[address] [facility] Bactrim DS oral tablet 1 tab, PO, [id number], 28 tab, Substitution Allowed, Maintenance, TAB PO Active [facility] 06/14/[address] [facility] potassium chloride 20 mEq oral tablet, extended releas e 20 mEq, 1 tab, PO, Daily, 30 tab, Substitution Allowed, ERTAB PO Active [facility] 06/14/[address] [facility] Bactroban 2% nasal ointment w/applicator 1 appl, NASAL, BID, 15 gm, Substitution Allowed, OINT/A NASAL Active [facility] 06/14/[address] [facility] ferrous sulfate 325 mg oral enteric coated tablet 325 mg, 1 tab, PO, TID, 100 tab, Substitution Allowed, ECTAB PO Active [facility] 06/14/[address] [facility] doxycycline hyclate 100 mg oral tablet 100 mg, 1 tab, PO, [id number], 30 tab, Substitution Allowed, TAB PO Active [facility] 06/14/[address] [facility] Colace 100 mg oral capsule 100 mg, 1 cap, PO, BID, 30 cap, Substitution Allowed, CAP PO Active [facility] 06/14/[address] [facility] Vitamin C 500 mg oral tablet 5 00 mg, 1 tab, PO, BID, 30 tab, Substitution Allowed, TAB PO Active [facility] 06/14/[address] [facility] acetaminophen-hydrocodone 325 mg-5 mg oral tablet 1 tab, PO, Q6H, PRN, 24 tab, Pain, Substitution Allowed, Maintenance, TAB PO Active [facility] 06/14/[address] [facility] Bactroban 2% nasal ointment w/applicator 1 appl, Route: NASAL, BID, Drug form: OINT/A, Start date: 06/13/11 17:00:00, Duration: 5 day, Stop date: 06/18/11 9:00:00 NASAL No Longer Active [facility] 06/13/[address] [facility] Colace 100 mg oral capsule 100 mg, 1 cap, Route: PO, Drug form: CAP, BID, Start date: 06/13/11 17:00:00, Duration: 30 day, Stop date: 07/13/11 9:00:00 PO No Longer Active [facility] 06/13/[address] [facility] ferrous sulfate 325 mg, 1 tab, Route: PO, Drug form: ECTAB, TID, Start date: 06/13/11 13:00:00, Duration: 30 day, Stop date: 07/13/11 9:00:00 PO No Longer Active [facility] 06/13/[address] [facility] Bactrim DS 1 tab, Route: PO, D rug Form: TAB, [id number], Start date: 06/13/11 12:00:00, Duration: 10 day, Stop date: 06/23/11 0:00:00 PO No Longer Active [facility] [address] [facility] doxycycline 100 mg, 1 tab, Rou te: PO, Drug form: TAB, [id number], Start date: 06/13/11 12:00:00, Duration: 30 day, Stop date: 07/13/11 0:00:00 PO No Longer Active [facility] 06/13/[address] [facility] potassium chloride 20 mEq, 1 t ab, Route: PO, Drug form: ERTAB, ONCE, Start date: 06/13/11 11:40:00, Stop date: 06/13/11 11:40:00 PO No Longer Active [facility] [address] [facility] magnesium sulfate 1 gm, 100 mL , Route: IVPB, Drug form: INJ, ONCE, Start date: 06/13/11 11:39:00, Stop date: 06/13/11 11:39:00 IVPB No Longer Active [facility] [address] [facility] Dilaudid 2 mg, 1 mL, Route: IV P, Drug form: INJ, Daily, Start date: 06/13/11 9:00:00, Duration: 30 day, Stop date: 07/12/11 9:00:00 IVP No Longer Active Marcela 06/[address] [facility] Dilaudid 4 mg, 2 mL, Route: IM , Drug form: INJ, ONCE, Start date: 06/12/11 13:33:00, Stop date: 06/12/11 13:33:00 IM No Longer Active [facility] 06/12/[address] [facility] acetaminophen-hydrocodone 325 mg-5 mg oral tablet 1 tab, Route: PO, Drug Form: TAB, Q6H, PRN Pain, Start date: 06/12/11 12:49:00, Stop date: 07/12/11 12:48:00 PO No Longer Active Ritter 06/12/[address] [facility] acetaminophen-hydrocodone 325 mg-5 mg oral tablet 2 tab, Route: PO, Drug Form: TAB, Q6H, PRN Pain, Start date: 06/12/11 12:48:00, Stop date: 07/12/11 12:47:00 PO No Longer Active [facility] 06/12/[address] [facility] Dilaudid 2 mg, 1 mL, Route: IV P, Drug form: INJ, Q3H, PRN Pain, Start date: 06/11/11 14:49:00, Duration: 30 day, Stop date: 07/11/11 14:48:00 IVP No Longer Active Xiomara 06/11/[address] [facility] potassium chloride 20 mEq, 1 t ab, Route: PO, Drug form: ERTAB, Daily, Start date: 06/11/11 9:00:00, Duration: 30 day, Stop date: 07/10/11 9:00:00 PO No Longer Active [facility] 06/11/[address] [facility] zinc sulfate 220 mg, 1 cap, Ro chevak: PO, Drug form: CAP, BID, Start date: 06/10/11 17:00:00, Duration: 30 day, Stop date: 07/10/11 9:00:00 PO No Longer Active [facility] 06/10/[address] [facility] Vitamin C 500 mg, 1 tab, Route : PO, Drug form: TAB, BID, Start date: 06/10/11 17:00:00, Duration: 30 day, Stop date: 07/10/11 9:00:00 PO No Longer Active [facility] [address] [facility] Lexapro 20 mg, 1 tab, Route: P O, Drug form: TAB, Bedtime, Start date: 06/09/11 21:00:00, Duration: 30 day, Stop date: 07/08/11 21:00:00 PO No Longer Active Jackson 06/10/[address] [facility] lidocaine 1% 0.5 mL, Route: GANT B-Q, ONCALL, Start date: 06/09/11 17:00:00, Duration: 1 doses or times SUB-Q No Longer Active Maninder 06/09/[address] [facility] enoxaparin 40 mg, 0.4 mL, Rout e: SUB-Q, Drug form: INJ, [id number], Start date: 06/09/11 17:00:00, Duration: 30 day, Stop date: 07/08/11 17:00:00 SUB-Q No Longer Active [facility] 06/09/[address] [facility] flumazenil 0.2 mg, 2 mL, Route : IVP, Drug form: INJ, PRN, PRN Benzodiazepine Reversal, Initial dose, Start date: 06/09/11 16:55:00, Duration: 30 day, Stop date: 07/09/11 16:54:00 IVP No Longer Active Maninder 06/09/[address] [facility] fentanyl 25 microgram, 0.5 mL, Route: IVP, Drug form: INJ, Q5Min, PRN Pain Score 4-6, Start date: 06/09/11 16:55:00, Duration: 4 doses or times, Stop date: Limited # of times IVP No Longer Active Maninder 06/09/[address] [facility] hydromorphone 0.5 mg, 0.25 mL, Route: IVP, Drug form: INJ, Q5Min, PRN Pain Score 4-6, Start date: 06/09/11 16:55:00, Duration: 5 doses or times, Stop date: Limited # of times IVP No Longer Active Maninder 06/09/[address] [facility] meperidine 12.5 mg, 0.25 mL, R oute: IVP, Drug form: INJ, Q30Min, PRN Other -See Comment, For shivering, Start date: 06/09/11 16:55:00, Duration: 2 doses or times, Stop date: Limited # of times IVP No Longer Active Maninder 06/09/[address] [facility] acetaminophen-hydrocodone 325 mg-5 mg oral tablet 1 tab, Route: PO, Drug Form: TAB, Q4H, PRN Pain Score 1-3, Start date: 06/09/11 16:55:00, Duration: 30 day, Stop date: 07/09/11 16:54:00 PO No Longer Active Maninder 06/09/[address] [facility] ondansetron 4 mg, Route: IVP, ONCE, PRN Nausea & Vomiting, Start date: 06/09/11 16:55:00 IVP No Longer Active Maninder 06/09/[address] [facility] naloxone 0.04 mg, 0.1 mL, Rout e: IVP, Drug form: INJ, Q2MIN, PRN Narcotic Reversal, Start date: 06/09/11 16:55:00, Duration: 8 doses or times, Stop date: Limited # of times IVP No Longer Active Maninder 06/09/[address] [facility] Ativan 1 mg, 0.5 mL, Route: IV P, Drug form: INJ, Q8H, PRN as needed for anxiety, Start date: 06/09/11 16:53:00, Duration: 30 day, Stop date: 07/09/11 16:52:00 IVP No Longer Active [facility] 06/09/[address] [facility] morphine Sulfate 2 mg, 1 mL, R oute: IVP, Drug form: INJ, Q2H, PRN Pain, Start date: 06/09/11 16:53:00, Duration: 30 day, Stop date: 07/09/11 16:52:00 IVP No Longer Active [facility] 06/09/[address] [facility] Zofran 4 mg, 2 mL, Route: IVP, Drug form: INJ, Q6H, PRN Nausea, Start date: 06/09/11 16:53:00, Duration: 30 day, Stop date: 07/09/11 16:52:00 IVP No Longer Active [facility] 06/09/[address] [facility] Lactated Ringers Injection IV 1,000 mL 1,000 mL, Rate: 25 ml/hr, Infuse over: 40 hr, Route: IV, Dosing Weight 96.364 kg, Total Volume: 1,000, Start date: 06/09/11 16:16:00, Duration: 30 day, Stop date: 07/09/11 16:15:00 IV No Longer Active [facility] 06/09/[address] [facility] meperidine 50 mg, 1 mL, Route: IVPB, Drug form: INJ, Q4H, PRN Pain, Start date: 06/09/11 11:11:00, Duration: 4 day, Stop date: 06/13/11 11:10:00 IVPB No Longer Active [facility] 06/09/[address] [facility] ciprofloxacin 400 mg, 200 mL, Route: IVPB, Drug form: INJ, [id number], Start date: 06/09/11 11:00:00, Duration: 30 day, Stop date: 07/08/11 23:00:00 IVPB No Longer Active [facility] 06/09/[address] [facility] clindamycin 900 mg, 6 mL, Rout e: IVPB, Drug form: INJ, [id number], Start date: 06/09/11 11:00:00, Duration: 30 day, Stop date: 07/09/11 3:00:00 IVPB No Longer Active [facility] 06/09/[address] [facility] D5W 1/2NS + KCL 20mEq/L 1000ml (Premix) 1,000 mL 1,000 mL, Rate: 125 ml/hr, Infuse over: 8 hr, Route: IV, Dosing Weight 96.364 kg, Total Volume: 1,000, Start date: 06/09/11 10:23:00, Duration: 30 day, Stop date: 07/09/11 10:22:00 IV No Longer Active [facility] 06/09/[address] [facility] Demerol HCl 50 mg, 1 mL, Route : IV, Drug form: INJ, Q4H, PRN as needed for pain, Start date: 06/09/11 10:22:00, Duration: 4 day, Stop date: 06/13/11 10:21:00 IV No Longer Active [facility] 06/09/[address] [facility] vancomycin 1.5 gm, 500 mL, Rou te: IVPB, Drug form: SOLN, Q12H, Start date: 06/09/11 9:00:00, Stop date: 07/08/11 21:00:00 IVPB No Longer Active [facility] 06/09/[address] [facility] Prinivil 20 mg, 1 tab, Route: PO, Drug form: TAB, Daily, Start date: 06/09/11 9:00:00, Duration: 30 day, Stop date: 07/08/11 9:00:00 PO No Longer Active [facility] hydrochlorothiazide 25 mg oral tablet 25 mg, 1 tab, Route: PO, Drug form: TAB, Daily, Start date: 06/09/11 9:00:00, Duration: 30 day, Stop date: 07/08/11 9:00:00 PO No Longer Active [facility] 06/09/[address] [facility] Tylenol 650 mg, 2 tab, Route: PO, Drug form: TAB, Q4H, PRN Fever, Start date: 06/09/11 6:55:00, Duration: 30 day, Stop date: 07/09/11 6:54:00 PO No Longer Active [facility] 06/09/[address] [facility] Phenergan 12.5 mg, 0.5 mL, Rou te: IVPB, Q3H, PRN Nausea & Vomiting, Start date: 06/09/11 6:54:00, Duration: 30 day, Stop date: 07/09/11 6:53:00 IVPB No Longer Active [facility] 06/09/[address] [facility] hydromorphone 1 mg, 1 mL, Rout e: IVP, Drug form: SOLN, Q3H, PRN Pain, Start date: 06/09/11 6:52:00, Duration: 30 day, Stop date: 07/09/11 6:51:00 IVP No Longer Active [facility] 06/09/[address] [facility] Sodium Chloride 0.9% IV 1,000 mL 1,000 mL, Rate: 80 ml/hr, Infuse over: 12.5 hr, Route: IV, Dosing Weight 96.364 kg, Total Volume: 1,000, Start date: 06/09/11 6:47:00, Duration: 30 day, Stop date: 07/09/11 6:46:00 IV No Longer Active [facility] 06/09/[address] [facility] hydrochlorothiazide-lisinopril 25 mg-20 mg oral tablet 1 tab, PO, Daily, 30 tab, Substitution Allowed, Maintenance, TAB PO Active 06/09/[address] [facility] Allergies, Adverse Reactions, Alerts Substance Category Reaction Severity Reaction type Status Date Reported Comments Source penicillins drug allergy hives Moderate Allergy Active 06/18/[address] [facility] penicillins<sup>6, 7</sup> Ass ertion hives Drug allergy Active 05/18/2008 Data migrated from [employer] on 10/16. Originally documented as PENICILLIN. Dermatological problems, e.g., rash, hives Data migrated from [employer] on 10/16/14. Originally documented as PCN. [facility] penicillins<sup>3, 4</sup> Ass ertion hives Drug allergy Active 05/18/2008 Data migrated from [employer] on 10/16. Originally documented as PENICILLIN. Dermatological problems, e.g., rash, hives Data migrated from [employer] on 10/16/14. Originally documented as PCN. [facility] aspirin<sup>1</sup> Assertion Aspirin,Miscellaneous Routes,compounding Drug allergy Active 06/02/2008 Data migrated from [employer] on 07/15. Originally documented as ASPIRIN. Dermatological problems, e.g., rash, hives [facility] HYDROmorphone<sup>3</sup> Asse rtion Drug aller gy Active 06/02/2008 Data migrated from [employer] on 07/15/14. Originally documented as DILAUDID. Dermatological problems, e.g., rash, hives [facility] ketorolac<sup>4</sup> Assertion Drug allergy Active 06/02/2008 Data migrated from [employer] on 07/15/14. Originally documented as TORADOL. Dermatological problems, e.g., rash, hives [facility] morphine<sup>5</sup> Assertion Drug allergy Active 06/02/2008 Data migrated from [employer] on 07/15/14. Originally documented as MORPHINE. Dermatological problems, e.g., rash, hives [facility] prochlorperazine<sup>8</sup> A ssertion Drug aller gy Active 06/02/2008 Data migrated from [employer] on 07/15/14. Originally documented as COMPAZINE. Dermatological problems, e.g., rash, hives [facility] ketorolac<sup>2</sup> Assertion Drug allergy Active 06/02/2008 Data migrated from [employer] on 07/15/14. Originally documented as TORADOL. Dermatological problems, e.g., rash, hives [facility] prochlorperazine<sup>5</sup> A ssertion Drug aller gy Active 06/02/2008 Data migrated from [employer] on 07/15/14. Originally documented as COMPAZINE. Dermatological problems, e.g., rash, hives [facility] fentaNYL<sup>2</sup> Assertion Drug allergy Active 06/25/2008 Data migrated from [employer] on 07/15/14. Originally documented as FENTANYL. Dermatological problems, e.g., rash, hives [facility] Compazine Assertion Drug allergy Active [facility] Toradol Assertion Drug allergy Active [facility] aspirin drug allergy Aspirin,Miscellaneous Routes,compounding Allergy Active [facility] Immunizations No Data Provided for This Section Results Order Name Results Value Reference Range Date Interpretation Comments Source URINE CHEM U Preg Negat eufemia (03/02/16 3:34 PM) Negative 03/02/2016 [facility] ENDOCRINOLOGY hCG Tot <1 03/02/2016 [facility] CHEM PANEL Lipase Lvl 132 73 - 393 10/09/[address] [facility] CHEM PANEL Amylase Lvl 31 25 - 115 10/09/[address] [facility] CHEM PANEL eGFR 83 10/09/2015 Result Comment: The eGFR is calculated using the CKD-EPI formula. In most young, healthy individuals the eGFR will be >90 mL/min/1.73m2. The eGFR declines with age. An eGFR of 60-89 may be normal in some populations, particularly the elderly, for whom the CKD-EPI formula has not been extensively validated. Use of the eGFR is not recommended in the following populations:

Individuals with unstable creatinine concentrations, including patients and those with serious co-morbid conditions.

Patients with extremes in muscle mass or diet.

The data above are obtained from the National Kidney Disease Education Program (NKDEP) which additionally recommends that when the eGFR is used in patients with extremes of body mass index for purposes of drug dosing, the eGFR should be multiplied by the estimated BMI. [facility] CHEM PANEL Bili Total 0.4 0.2 - 1.3 10/09/[address] [facility] CHEM PANEL AST 6 0 - 37 10/09/[address] [facility] CHEM PANEL Potassium Lvl 3.4 3.5 - 5.1 10/09/[address] [facility] CHEM PANEL ALT 13 0 - 65 10/09/[address] [facility] CHEM PANEL Chloride Lvl 106 95 - 109 10/09/[address] [facility] CHEM PANEL CO2 27 24 - 32 10/09/[address] [facility] CHEM PANEL Glucose Lvl 91 70 - 99 10/09/[address] [facility] CHEM PANEL Total Protein 7.4 6.4 - 8.4 10/09/[address] [facility] CHEM PANEL Albumin Lvl 4.1 3.5 - 5.0 10/09/2015 [facility] CHEM PANEL Alk Phos 60 39 - 136 10/09/[address] [facility] CHEM PANEL Calcium Lvl 8.9 8.5 - 10.5 10/09/2015 [facility] CHEM PANEL Sodium Lvl 140 135 - 145 10/09/[address] [facility] CHEM PANEL BUN 9 7 - 22 10/09/2015 [facility] CHEM PANEL Creatinine Lvl 0.88 0.50 - 1.40 10/09/[address] [facility] CHEM PANEL AGAP 10.4 10.0 - 20.0 10/09/[address] [facility] CHEM PANEL B/C Ratio 10 6 - 25 10/09/[address] [facility] CHEM PANEL Globulin 3.3 2.0 - 4.0 10/09/[address] [facility] CHEM PANEL A/G Ratio 1.2 0.7 - 1.6 10/09/[address] [facility] ENDOCRINOLOGY S Preg Ne gative *NA* (10/09/15 3:46 PM) Negative 10/09/[address] [facility] HEMATOLOGY Microcyte 1+ *ABN* (10/09/15 3:46 PM) None Seen 10/09/[address] [facility] HEMATOLOGY Basophils # 0.1 0.0 - 0.2 10/09/[address] [facility] HEMATOLOGY Monocytes # 0.6 0.0 - 0.8 10/09/[address] [facility] HEMATOLOGY Segs-Bands # 7.8 1.5 - 8.1 10/09/2015 [facility] HEMATOLOGY Basophils 0.9 0.0 - 1.0 10/09/[address] [facility] HEMATOLOGY Lymphocytes # 2.2 1.0 - 5.5 10/09/[address] [facility] HEMATOLOGY Eosinophils 0.2 0.0 - 4.0 10/09/2015 [facility] HEMATOLOGY Monocytes 5.5 2.0 - 12.0 10/09/2015 [facility] HEMATOLOGY Lymphocytes 20.9 20.0 - 40.0 10/09/[address] [facility] HEMATOLOGY Segs 72.5 45.0 - 75.0 10/09/[address] [facility] HEMATOLOGY PT 14.2 12.0 - 14.7 10/09/2015 [facility] HEMATOLOGY INR 1.07 0.85 - 1.17 10/09/[address] [facility] HEMATOLOGY MCH 23.0 27.0 - 31.0 10/09/[address] [facility] HEMATOLOGY MCV 72.9 80.0 - 98.0 10/09/[address] [facility] HEMATOLOGY WBC 10.7 3.7 - 10.4 10/09/[address] [facility] HEMATOLOGY Hct 37.9 36.0 - 48.0 10/09/[address] [facility] HEMATOLOGY RBC 5.19 4.20 - 5.40 10/09/[address] [facility] HEMATOLOGY Hgb 11.9 12.0 - 16.0 10/09/[address] [facility] HEMATOLOGY Platelet 260 133 - 450 10/09/[address] [facility] HEMATOLOGY MPV 8.1 7.4 - 10.4 10/09/[address] [facility] HEMATOLOGY RDW 20.0 11.5 - 14.5 10/09/[address] [facility] HEMATOLOGY MCHC 31.6 32.0 - 36.0 10/09/[address] [facility] HEMATOLOGY PTT 28.7 22.9 - 35.8 10/09/[address] [facility] URINE AND STOOL UA Trans Epi 2 <=0 /LPF 10/09/[address] [facility] URINE AND STOOL UA Urobilinogen <=1.0 mg/dL 0.1 - 1.0 10/09/[address] [facility] URINE AND STOOL UA Mucus Many /LPF None Seen /LPF 10/09/[address] [facility] URINE AND STOOL UA Rice Yeast Occasional /HPF None Seen /HPF 10/09/[address] [facility] [address] URINE AND STOOL UA WBC 56 0 - 5 10/09/[address] [facility] URINE AND STOOL UA Sq Epi Many /LPF Few /LPF 10/09/[address] [facility] URINE AND STOOL UA RBC 5 0 - 2 10/09/[address] [facility] URINE AND STOOL UA Ketones Negative mg/dL Negative mg/dL 10/09/[address] [facility] [address] URINE AND STOOL UA Blood Negative (10/09/15 3:46 PM) Negative 10/09/[address] [facility] URINE AND STOOL UA Bili Negative *NA* (10/09/15 3:46 PM) Negative 10/09/[address] [facility] URINE AND STOOL UA Leuk Est Large *ABN* (10/09/15 3:46 PM) Negative 10/09/[address] [facility] URINE AND STOOL UA Nitrite Negative (10/09/15 3:46 PM) Negative 10/09/[address] [facility] URINE AND STOOL UA Turbidity Slight *ABN* (10/09/15 3:46 PM) Clear 10/09/[address] [facility] URINE AND STOOL UA pH 5.0 5.0 - 8.0 10/09/[address] [facility] URINE AND STOOL UA Spec Grav 1.028 <=1.030 10/09/[address] [facility] URINE AND STOOL UA Glucose Negative mg/dL Negative mg/dL 10/09/2015 [facility] URINE AND STOOL UA Protein 30 mg/dL Negative mg/dL 10/09/[address] [facility] URINE AND STOOL UA Color Yellow *NA* (10/09/15 3:46 PM) Yellow 10/09/[address] [facility] CHEMISTRY U Preg Negati ve (07/22/2012 16:25:00) Negati ve 07/22/[address] [facility] CHEMISTRY Magnesium Lvl 2.1 1.8 - 2.4 06/15/[address] [facility] CHEMISTRY Calcium Lvl 9.0 8.5 - 10.5 06/15/[address] [facility] CHEMISTRY Potassium Lvl 4.3 3.5 - 5.1 06/15/[address] [facility] CHEMISTRY Chloride Lvl 104 95 - 109 06/15/[address] [facility] CHEMISTRY CO2 27 24 - 32 06/15/[address] [facility] CHEMISTRY Sodium Lvl 141 135 - 145 06/15/[address] [facility] CHEMISTRY Creatinine Lvl 1.0 0.5 - 1.4 06/15/[address] [facility] CHEMISTRY BUN 11 7 - 22 06/15/[address] [facility] CHEMISTRY Glucose Lvl 99 70 - 99 06/15/2011 Normal <sup>3</sup>Interpretive Data: Adult ref erence range values reflect the clinical guidelines of the [place] [employer]. [facility] CHEMISTRY AGAP 14.3 10.0 - 20.0 06/15/[address] [facility] HEMATOLOGY Platelet 295 133 - 450 06/15/[address] [facility] HEMATOLOGY MPV 7.6 7.4 - 10.4 06/15/[address] [facility] HEMATOLOGY WBC 10.6 3.7 - 10.4 06/15/[address] [place] [facility] HEMATOLOGY Hgb 10.1 12.0 - 16.0 06/15/[address] LOW [facility] HEMATOLOGY MCV 73.9 81.0 - 99.0 06/15/[address] [facility] HEMATOLOGY RBC 4.35 4.20 - 5.40 06/15/[address] [facility] HEMATOLOGY Hct 32.2 36.0 - 48.0 06/15/[address] LOW [facility] HEMATOLOGY MCH 23.3 27.0 - 31.0 06/15/[address] [facility] HEMATOLOGY MCHC 31.5 32.0 - 36.0 06/15/[address] [facility] HEMATOLOGY RDW 19.5 11.5 - 14.5 06/15/2011 [facility] HEMATOLOGY Segs 74.2 45.0 - 75.0 06/15/2011 Normal [facility] HEMATOLOGY Lymphocytes 12.9 20.0 - 40.0 06/15/2011 LOW [facility] HEMATOLOGY Monocytes 10.1 2.0 - 12.0 06/15/2011 Normal [facility] HEMATOLOGY Segs-Bands # 7.8 1.5 - 8.1 06/15/2011 Normal [facility] HEMATOLOGY Basophils 0.3 0.0 - 1.0 06/15/2011 Normal [facility] HEMATOLOGY Eosinophils 2.5 0.0 - 4.0 06/15/2011 Normal [facility] HEMATOLOGY Lymphocytes # 1.4 1.0 - 5.5 06/15/2011 Normal [facility] HEMATOLOGY Basophils # 0.0 0.0 - 0.2 06/15/2011 Normal [facility] HEMATOLOGY Eosinophils # 0.3 0.0 - 0.5 06/15/2011 Normal [facility] HEMATOLOGY Monocytes # 1.1 0.0 - 0.8 06/15/2011 [facility] CHEMISTRY Magnesium Lvl 1.7 1.8 - 2.4 06/13/2011 LOW [facility] CHEMISTRY AGAP 14.4 10.0 - 20.0 06/13/2011 Normal [facility] CHEMISTRY BUN 5 7 - 22 06/13/2011 LOW [facility] CHEMISTRY Creatinine Lvl 0.8 0.5 - 1.4 06/13/2011 Normal [facility] CHEMISTRY Chloride Lvl 108 95 - 109 06/13/2011 Normal [facility] CHEMISTRY Potassium Lvl 3.4 3.5 - 5.1 06/13/2011 LOW [facility] CHEMISTRY Sodium Lvl 145 135 - 145 06/13/2011 Normal [facility] CHEMISTRY Calcium Lvl 7.4 8.5 - 10.5 06/13/2011 LOW [facility] CHEMISTRY CO2 26 24 - 32 06/13/2011 Normal [facility] CHEMISTRY Glucose Lvl 102 70 - 99 06/13/2011 [place] <sup>4</sup>Interpretive Data: Adult ref erence range values reflect the clinical guidelines of the [place] [employer]. [facility] HEMATOLOGY Lymphocytes 22.8 20.0 - 40.0 06/13/[address] [facility] HEMATOLOGY Segs 65.9 45.0 - 75.0 06/13/2011 Normal [facility] HEMATOLOGY Eosinophils 3.0 0.0 - 4.0 06/13/2011 Normal [facility] HEMATOLOGY Basophils 0.4 0.0 - 1.0 06/13/2011 Normal [facility] HEMATOLOGY Segs-Bands # 5.7 1.5 - 8.1 06/13/2011 Normal [facility] HEMATOLOGY Lymphocytes # 2.0 1.0 - 5.5 06/13/2011 Normal [facility] HEMATOLOGY Monocytes 7.9 2.0 - 12.0 06/13/2011 Normal [facility] HEMATOLOGY Monocytes # 0.7 0.0 - 0.8 06/13/2011 Normal [facility] HEMATOLOGY Eosinophils # 0.3 0.0 - 0.5 06/13/2011 Normal [facility] HEMATOLOGY Basophils # 0.0 0.0 - 0.2 06/13/[address] [facility] HEMATOLOGY MCV 73.5 81.0 - 99.0 06/13/[address] [facility] HEMATOLOGY MCH 23.5 27.0 - 31.0 06/13/2011 [facility] HEMATOLOGY MCHC 31.9 32.0 - 36.0 06/13/2011 [facility] HEMATOLOGY Platelet 254 133 - 450 06/13/[address] [facility] HEMATOLOGY RDW 19.3 11.5 - 14.5 06/13/[address] [place] [facility] HEMATOLOGY MPV 7.8 7.4 - 10.4 06/13/[address] [facility] HEMATOLOGY RBC 3.57 4.20 - 5.40 06/13/2011 [facility] HEMATOLOGY Hgb 8.4 12.0 - 16.0 06/13/[address] [facility] HEMATOLOGY Hct 26.2 36.0 - 48.0 06/13/[address]OW [facility] HEMATOLOGY WBC 8.7 3.7 - 10.4 06/13/[address] [facility] IMMUNOLOGY Prealbumin 16.5 18.0 - 45.0 06/13/[address]OW [facility] HEMATOLOGY Eosinophils 2.4 0.0 - 4.0 06/11/[address] [facility] HEMATOLOGY Basophils 0.2 0.0 - 1.0 06/11/[address] [facility] HEMATOLOGY Segs-Bands # 7.8 1.5 - 8.1 06/11/2011 Normal [facility] HEMATOLOGY Lymphocytes # 2.3 1.0 - 5.5 06/11/[address] [facility] HEMATOLOGY Monocytes # 0.7 0.0 - 0.8 06/11/[address] [facility] HEMATOLOGY Eosinophils # 0.3 0.0 - 0.5 06/11/[address] [facility] HEMATOLOGY Monocytes 6.7 2.0 - 12.0 06/11/[address] [facility] HEMATOLOGY Basophils # 0.0 0.0 - 0.2 06/11/[address] [facility] HEMATOLOGY Segs 70.1 45.0 - 75.0 06/11/[address] [facility] HEMATOLOGY Lymphocytes 20.6 20.0 - 40.0 06/11/[address] [facility] HEMATOLOGY Hct 29.3 36.0 - 48.0 06/11/[address] LOW [facility] HEMATOLOGY MCV 73.7 81.0 - 99.0 06/11/[address] LOW [facility] HEMATOLOGY WBC 11.1 3.7 - 10.4 06/11/[address] HI [facility] HEMATOLOGY RBC 3.98 4.20 - 5.40 06/11/[address] LOW [facility] HEMATOLOGY Hgb 9.3 12.0 - 16.0 06/11/[address] LOW [facility] HEMATOLOGY MCH 23.3 27.0 - 31.0 06/11/[address] LOW [facility] HEMATOLOGY MCHC 31.7 32.0 - 36.0 06/11/[address] LOW [facility] HEMATOLOGY RDW 19.6 11.5 - 14.5 06/11/[address] HI [facility] HEMATOLOGY Platelet 247 133 - 450 06/11/[address] [facility] HEMATOLOGY MPV 8.3 7.4 - 10.4 06/11/[address] [facility] CHEMISTRY Vanco Pk TLD 1000 06/10/[address] [facility] CHEMISTRY Vanco Pk 16.0 06/10/2011 NA <sup>7</sup>Interpretive Data: Therapeutic Range: Trough: 10 - 20 ug/mL Peak: 20 - 40 ug/mL Potential Toxicity: >80 ug/mL [facility] CHEMISTRY Vanco Tr TND 0900 06/10/[address] NA [facility] CHEMISTRY Vanco Tr 6.0 06/10/2011 NA <sup>6</sup>Interpretive Data: Therapeutic Range: Trough: 10 - 20 ug/mL Peak: 20 - 40 ug/mL Potential Toxicity: >80 ug/mL [facility] CHEMISTRY AST 5 0 - 37 06/10/[address] [facility] CHEMISTRY Bili Total 0.3 0.2 - 1.3 06/10/[address] [facility] CHEMISTRY Total Protein 6.4 6.4 - 8.4 06/10/[address] [facility] CHEMISTRY Albumin Lvl 2.7 3.5 - 5.0 06/10/[address] LOW [facility] CHEMISTRY Alk Phos 59 39 - 136 06/10/[address] [facility] CHEMISTRY ALT 13 0 - 65 06/10/[address] [facility] CHEMISTRY Chloride Lvl 102 95 - 109 06/10/[address] [facility] CHEMISTRY Calcium Lvl 8.4 8.5 - 10.5 06/10/[address] [facility] CHEMISTRY CO2 32 24 - 32 06/10/[address] [facility] CHEMISTRY Glucose Lvl 111 70 - 99 06/10/2011 [place] <sup>5</sup>Interpretive Data: Adult ref erence range values reflect the clinical guidelines of the [place] [employer]. [facility] CHEMISTRY BUN 5 7 - 22 06/10/[address]OW [facility] CHEMISTRY Creatinine Lvl 0.9 0.5 - 1.4 06/10/[address] [facility] CHEMISTRY Potassium Lvl 3.5 3.5 - 5.1 06/10/[address] [facility] CHEMISTRY Sodium Lvl 140 135 - 145 06/10/[address] [facility] CHEMISTRY A/G Ratio 0.7 0.7 - 1.6 06/10/[address] [facility] CHEMISTRY B/C Ratio 6 6 - 25 06/10/[address] [facility] CHEMISTRY AGAP 9.5 10.0 - 20.0 06/10/[address] LOW [facility] CHEMISTRY Globulin 3.7 2.0 - 4.0 06/10/[address] [facility] HEMATOLOGY PT 14.5 12.0 - 14.7 06/09/[address] [facility] HEMATOLOGY INR 1.13 0.85 - 1.17 06/09/2011 Normal <sup>8</sup>Interpretive Data: RECOMMEND ED RANGES FOR PROTIME INR: 2.0-3.0 for most medical and surgical thromboembolic states. 2.5-3.5 for artificial heart valves and recurrent embolism. INR SHOULD BE USED ONLY FOR PATIENTS ON STABLE ANTICOAGULANT THERAPY. [facility] HEMATOLOGY PTT 28.5 22.9 - 35.8 06/09/2011 Normal <sup>9</sup>Interpretive Data: Heparin T herapeutic Range: 57 - [address] [facility] Microbiology Culture: AFB w/Smear 06/09/[address] [facility] Microbiology Culture: Anaerobic 06/09/[address] [facility] Microbiology Culture: Wound/Abscess w/Gram Stain 06/09/[address] [facility] Microbiology Culture: Fungal w/Smear 06/09/[address] [facility] Microbiology Culture: AFB w/Smear 06/09/[address] [facility] Microbiology Culture: Anaerobic 06/09/[address] [facility] Microbiology Culture: Wound/Abscess w/Gram Stain 06/09/[address] [facility] Microbiology Culture: Fungal w/Smear 06/09/[address] [facility] CHEMISTRY U Preg Negati ve (06/09/2011 13:10:00) Negati ve 06/09/[address] [facility] URINALYSIS UA WBC None Seen (06/09/2011 13:10:00) None S een 06/09/[address] [facility] URINALYSIS UA Bacteria Occas ional /HPF (06/09/2011 13:10:00) None S een 06/09/[address] [facility] URINALYSIS UA Sq Epi Moder ate /LPF *ABN* (06/09/2011 13:10:00) Few 06/09/[address] [facility] URINALYSIS UA RBC 0-2 / HPF (06/09/2011 13:10:00) 0 - 2 06/09/[address] [facility] URINALYSIS UA Protein Negat eufemia (06/09/2011 13:10:00) Negati ve 06/09/[address] [facility] URINALYSIS UA Glucose Negat eufemia (06/09/2011 13:10:00) Negati ve 06/09/[address] [facility] URINALYSIS UA Bili Negat eufemia *NA* (06/09/2011 13:10:00) Negati ve 06/09/[address] [facility] URINALYSIS UA Blood Small *ABN* (06/09/2011 13:10:00) Negati ve 06/09/[address] [facility] URINALYSIS UA Ketones Negat eufemia *NA* (06/09/2011 13:10:00) Negati ve 06/09/[address] [facility] URINALYSIS UA Nitrite Negat eufemia (06/09/2011 13:10:00) Negati ve 06/09/[address] [facility] URINALYSIS UA Leuk Est Negat eufemia (06/09/2011 13:10:00) Negati ve 06/09/[address] [facility] URINALYSIS UA Urobilinogen 0.2 0.1 - 1.0 06/09/[address] [facility] URINALYSIS UA Spec Grav 1.025 <=1.030 06/09/[address] [facility] URINALYSIS UA pH 5.0 5.0 - 8.0 06/09/[address] [facility] URINALYSIS UA Color Yello w *NA* (06/09/2011 13:10:00) Yellow 06/09/[address] [facility] URINALYSIS UA Turbidity Clear (06/09/2011 13:10:00) Clear 06/09/[address] [facility] BACTERIAL - SEROLOGY MRSA by PCR Positive 1, 2 *ABN* (06/09/2011 13:00:00) 06/09/2011 ABN <sup>1</sup>Result Comment: "Significant Findings called to [facility]_at __06/10/2011 11:59_by __SA_.Read Back OK."
<sup>2</sup>Interpretive Data: INTERPRETATION: Negative......No MRSA DNA detected by PCR Positive......MRSA DNA detected by PCR ASSAY LIMITATIONS: This is a screening test for colonization by MRSA. A positive test result indicates the patient is colonized by MRSA, but does not necessarily mean that an infection is present or that treatment is necessary. Likewise, a negative test does not exclude colonization or infection. Patients should be evaluated clinically for symptoms and signs of infection before making therapeutic decisions. Routine decolonization is discouraged and should only be considered for select patients after consultation with an infectious diseases specialist. [facility] CHEMISTRY B/C Ratio 7 6 - 25 06/09/[address] [facility] CHEMISTRY A/G Ratio 1.1 0.7 - 1.6 06/09/[address] [facility] CHEMISTRY Globulin 2.9 2.0 - 4.0 06/09/[address] [facility] CHEMISTRY AST 5 0 - 37 06/09/[address] [facility] CHEMISTRY Bili Total 0.3 0.2 - 1.3 06/09/[address] [facility] CHEMISTRY Alk Phos 68 39 - 136 06/09/[address] [facility] CHEMISTRY Albumin Lvl 3.3 3.5 - 5.0 06/09/[address] [facility] CHEMISTRY ALT 14 0 - 65 06/09/[address] [facility] CHEMISTRY Total Protein 6.2 6.4 - 8.4 06/09/[address] [facility] HEMATOLOGY Plt Morph Etgan l (06/09/2011 05:50:00) 06/09/[address] [facility] HEMATOLOGY Hypochrom Sligh t (06/09/2011 05:50:00) None S een 06/09/[address] [facility] HEMATOLOGY Elliptocyte Sligh t *ABN* (06/09/2011 05:50:00) None S een 06/09/[address] [facility] HEMATOLOGY Polychrom Sligh t (06/09/2011 05:50:00) None S een 06/09/[address] [facility] Microbiology Culture: Blood 06/09/[address] [facility] Microbiology Culture: Blood 06/09/[address] [facility] Pathology Reports No Data Provided for This Section Diagnostic Reports Report Value Date Source ED Abdomen/Pelvis IV contrast only CT Study: ED Abdomen/Pelvis IV contrast only CT Clinical Indication: Generalized abdominal pain Comparison: CT abdomen and pelvis from 08/23/2004. TECHNIQUE: Multiple axial CT images of the abdomen and pelvis were acquired following the administration of intravenous contrast. Sagittal and coronal reformatted images were performed. CT Radiation Dose DLP 1830.10 mGy-cm FINDINGS: The visualized lung bases are clear bilaterally. Hepatosplenomegaly is seen. Patient is status post cholecystectomy. Scattered hepatic hypodense cysts are seen with largest measuring 1 cm in the left hepatic lobe. Pancreas, adrenal glands, and kidneys are unremarkable. No intrahepatic or extrahepatic biliary duct dilatation is seen. Urinary bladder is mildly distended. Uterus and ovaries are unremarkable. The visualized hollow viscera and appendix are normal in appearance. No intraperitoneal free air, free fluid, or pathologic adenopathy is seen. No suspicious osseous lesion is seen. Degenerative disc disease of the lumbosacral junction is present. IMPRESSION: 1. No acute intra-abdominal/pelvic abnor mality. 2. Hepatosplenomegaly. SL: [id number] 10/09/[address] [facility] Consultation Notes No Data Provided for This Section Discharge Summaries No Data Provided for This Section History and Physicals No Data Provided for This Section Vital Signs Vital Sign Value Date Comments Source Systolic (mm Hg) 131 03/02/2016 [facility] Diastolic (mm Hg) 81 03/02/2016 [facility] Heart Rate 78 03/02/2016 [facility] Respitory Rate 18 03/02/2016 [facility] Temperature Oral (F) 98.1 F 03/02/2016 [facility] Heart Rate 82 03/02/2016 [facility] Systolic (mm Hg) 137 03/02/2016 [facility] Diastolic (mm Hg) 89 03/02/2016 [facility] Respitory Rate 18 03/02/2016 [facility] Height 182.88 cm 03/02/2016 [facility] Weight 80.909 03/02/2016 [facility] BMI Calculated 24.19 03/02/2016 [facility] Heart Rate 86 03/02/2016 [facility] Systolic (mm Hg) 145 03/02/2016 [facility] Diastolic (mm Hg) 98 03/02/2016 [facility] Temperature Oral (F) 98.6 F 03/02/2016 [facility] Respitory Rate 18 03/02/2016 [facility] Systolic (mm Hg) 153 10/10/[address] [facility] Diastolic (mm Hg) 98 10/10/[address] [facility] Temperature Oral (F) 99.1 F 10/10/[address] [facility] Heart Rate 73 10/10/[address] [facility] Respitory Rate 18 10/10/2015 [facility] Weight 81.818 10/09/[address] [facility] Temperature Oral (F) 98.1 F 10/09/2015 [facility] Weight 81.818 10/09/[address] [facility] Respitory Rate 20 10/09/[address] [facility] Heart Rate 94 10/09/[address] [facility] Systolic (mm Hg) 182 10/09/[address] [facility] Diastolic (mm Hg) 101 10/09/[address] [facility] Weight 90 0 07/22/[address] [facility] Height 180.34 cm 07/22/[address] [facility] Heart Rate 102 06/16/[address] [facility] Temperature Oral (F) 98.4 F 06/16/[address] [facility] Respitory Rate 20 06/16/2011 [facility] Systolic (mm Hg) 110 06/16/2011 [facility] Diastolic (mm Hg) 73 06/16/2011 [facility] Diastolic (mm Hg) 72 06/16/2011 [facility] Systolic (mm Hg) 108 06/16/[address] [facility] Temperature Oral (F) 98.9 F 06/16/[address] [facility] Heart Rate 82 06/16/2011 [facility] Respitory Rate 18 06/16/2011 [facility] Heart Rate 104 06/16/[address] [facility] Temperature Oral (F) 98.5 F 06/16/2011 [facility] Respitory Rate 18 06/16/2011 [facility] Diastolic (mm Hg) 72 06/16/2011 [facility] Systolic (mm Hg) 124 06/16/[address] [facility] Height 182.88 cm 06/09/[address] [facility] Weight 96.364 06/09/[address] [facility] Weight 96.534 06/09/[address] [facility] Height 182.88 cm 06/09/[address] [facility] Encounters Location Location Details Encounter Type Encounter Number Reason For Visit Attending Provider ADM Date DC Date Status Source [facility] Inpatient [id number] CELLULITIS, ABSCE SS RENATO CORDERO 06/09/2011 06/16/2011 Active [facility] Emergency [id number] BAYRON PENNY 07/22/2012 07/22/2012 Discharged [facility] [id number] Qutia Jain 04/30/2015 04/30/2015 [facility] [id number] Uriah Whitten 10/09/2015 10/10/2015 [facility] Emergency [id number] Naun Wahl 03/02/2016 03/02/2016 [facility] OU [id number] MULTIPLE ABSCESSE S HAILEE JACKSON Cancel [facility] Procedures Procedure Code Date Perfomer Comments Source Cholecystectomy [id number] [facility] Assessment and Plan No Data Provided for This Section Plan of Care No Data Provided for This Section Social History Social History Date Source Social History TypeResponse Smoking Status Never smoker; Exposure to Tobacco Smoke None; Cigarette Smoking Last 365 Days No; Reg Smoking Cessation Counseling No 03/02/2016 [facility] Social History TypeResponse Smoking Status Never smoker; Exposure to Tobacco Smoke None; Cigarette Smoking Last 365 Days No; Reg Smoking Cessation Counseling No 10/09/[address] [facility] Family History No Data Provided for This Section Advance Directives No Data Provided for This Section Functional Status No Data Provided for This Section
[2019-12-31] MEDS ORDERED: HYDROMORPHONE 1MG/1ML INJ IV STA (11:03)
[2019-12-31] MEDS ORDERED: DIPHENHYDRAMINE HCL INJ 50 MG/ML VIAL IV ONE (11:15)
[2019-12-31 13:27] LABS: CREATINE KINASE 452 IU/L (29-168)
[2019-12-31 14:26] VITALS: BP 148/96
== END 2019-12-31 14:42 | disposition home or self-care (01) ==
LOC: ER 09:00
DX: M54.5 Low back pain (principal); R14.0 Abdominal distension (gaseous); F41.9 Anxiety disorder, unspecified; N80.9 Endometriosis, unspecified; E28.2 Polycystic ovarian syndrome
CPT/HCPCS: 36415; 71045; 74178; 80053; 80307; 80320; 80329; 81001; 81025; 82150; 82550; 82553; 83690; 83735; 83880; 84484; 84702; 85025; 85610; 85730; 87040; 87086; 99284; C9113; J1170; J1200; J2270; J2405; J7030

== ENCOUNTER 2020-02-03 16:08 | Inpatient (IN) | payer SELFPAY ==
[~2020-02-03] VITALS: Ht 182.9 cm; Wt 81.6 kg
[2020-02-03 20:56] LABS: BASOPHILS % 0.4 % (0.0-1.0); EOSINOPHILS # (AUTO) 0.1 (0.0-0.4); EOSINOPHILS % 1.6 % (0.0-6.0); HEMATOCRIT 29.7 % (34.2-44.1); HEMOGLOBIN 7.8 g/dL (12.0-16.0); LYMPHOCYTES # (AUTO) 1.7 (1.0-3.2); LYMPHOCYTES % 23.2 % (18.0-39.1); MEAN CORPUSCULAR HEMOGLOBIN 17.3 pg (28-32); MEAN CORPUSCULAR HGB CONC 26.3 g/dL (31-35); MEAN CORPUSCULAR VOLUME 65.9 fL (81-99); MONOCYTES # (AUTO) 0.6 (0.2-0.8); MONOCYTES % 7.6 % (4.4-11.3); NEUTROPHILS # (AUTO) 4.9 (2.1-6.9); NEUTROPHILS % 66.7 % (38.7-80.0); PLATELET COUNT 212 x10e3/uL (140-360); RED BLOOD COUNT 4.51 x10e6/uL (3.6-5.1)
[2020-02-03] MEDS ORDERED: HYDROCODONE/APAP 7.5MG-325MG 1 EA TAB PO ONE (21:00)
[2020-02-03 21:26] LABS: ALANINE AMINOTRANSFERASE 66 IU/L (0-55); ALBUMIN 3.6 g/dL (3.5-5.0); ALBUMIN/GLOBULIN RATIO 1.1 (0.8-2.0); ALKALINE PHOSPHATASE 109 IU/L (40-150); ANION GAP 13.3 mmol/L (8-16); BLOOD UREA NITROGEN 7 mg/dL (7-26); BUN/CREATININE RATIO 9 (6-25); CALCIUM 8.9 mg/dL (8.4-10.2); CARBON DIOXIDE 29 mmol/L (22-29); CHLORIDE 101 mmol/L (98-107); CREATINE KINASE 3045 IU/L (29-168); CREATININE, SERUM 0.76 mg/dL (0.57-1.11); EST GLOMERULAR FILTRATION RATE > 60 ML/MIN (60-); GLUCOSE 106 mg/dL (74-118); POTASSIUM 3.3 mmol/L (3.5-5.1); SODIUM 140 mmol/L (136-145)
[2020-02-03] MEDS ORDERED: SODIUM CHLORIDE 0.9% 1000ML 1,000 ML IV ONE (22:00)
[2020-02-03] MEDS ORDERED: SODIUM CHLORIDE 0.9% 1000ML 1,000 ML IV SCH (22:00)
[2020-02-03 23:00] VITALS: BP 110/70
[2020-02-04] VITALS (7 sets, daily range): BP systolic 103–137; BP diastolic 63–89
[2020-02-04] MEDS ORDERED: HYDRALAZINE HCL 20 MG/ML VIAL IV PRN (00:45)
[2020-02-04] MEDS ORDERED: ONDANSETRON HCL 4 MG ORAL DISINTEGRATING TAB PO PRN (00:45)
[2020-02-04] MEDS ORDERED: HYDROCODONE/APAP 7.5MG-325MG 1 EA TAB PO PRN (00:45)
[2020-02-04] MEDS ORDERED: ACETAMINOPHEN 325 MG TAB PO PRN (00:45)
[2020-02-04] MEDS ORDERED: POLYETHYLENE GLYCOL 3350 17 GM PACK PO PRN (00:45)
[2020-02-04] MEDS: SODIUM BICARBONATE 8.4% 150 ML in DEXTROSE 5%/0.45% SOD CHL 1,000 ML IV SCH ×2 (01:00→08:13)
[2020-02-04] MEDS ORDERED: POTASSIUM CHLORIDE 20 MEQ TAB CR PO ONE (01:00)
[2020-02-04] MEDS ORDERED: SODIUM CHLORIDE 0.9% 1000ML 1,000 ML ONE ×2 (02:43→04:04)
[2020-02-04] MEDS: HYDROMORPHONE 1MG/1ML INJ IV PRN ×2 (02:47→06:44)
[2020-02-04] MEDS: ONDANSETRON HCL INJ 2MG/ML 2ML 2 MG/ML VIAL IV PRN ×2 (02:48→06:48)
[2020-02-04 06:08] LABS: BASOPHILS % 0.5 % (0.0-1.0); EOSINOPHILS # (AUTO) 0.1 (0.0-0.4); EOSINOPHILS % 2.2 % (0.0-6.0); HEMATOCRIT 26.7 % (34.2-44.1); HEMOGLOBIN 7.1 g/dL (12.0-16.0); LYMPHOCYTES # (AUTO) 1.9 (1.0-3.2); LYMPHOCYTES % 32.3 % (18.0-39.1); MEAN CORPUSCULAR HEMOGLOBIN 17.5 pg (28-32); MEAN CORPUSCULAR HGB CONC 26.6 g/dL (31-35); MEAN CORPUSCULAR VOLUME 65.8 fL (81-99); MONOCYTES # (AUTO) 0.5 (0.2-0.8); MONOCYTES % 8.4 % (4.4-11.3); NEUTROPHILS # (AUTO) 3.3 (2.1-6.9); NEUTROPHILS % 56.3 % (38.7-80.0); PLATELET COUNT 184 x10e3/uL (140-360); RED BLOOD COUNT 4.06 x10e6/uL (3.6-5.1); RED CELL DISTRIBUTION WIDTH 19.9 % (11.7-14.4)
[2020-02-04] MEDS ORDERED: GABAPENTIN400 MG PO (06:26)
[2020-02-04] MEDS ORDERED: PROMETHAZINE HC25 M1 PO (06:26)
[2020-02-04] MEDS ORDERED: AMBIEN10 MG PO (06:26)
[2020-02-04] MEDS ORDERED: AMITRIPTYLINE H25 MG PO (06:26)
[2020-02-04] MEDS ORDERED: DIAZEPAM5 MG PO (06:26)
[2020-02-04] MEDS ORDERED: FIORINAL-COD 31 EACH PO (06:26)
[2020-02-04] MEDS ORDERED: OMEPRAZOLE40 MG PO (06:26)
[2020-02-04] MEDS ORDERED: TIZANIDINE HCL4 MG PO (06:26)
[2020-02-04 06:35] LABS: ALANINE AMINOTRANSFERASE 48 IU/L (0-55); ALBUMIN 2.9 g/dL (3.5-5.0); ALKALINE PHOSPHATASE 90 IU/L (40-150); ANION GAP 7.5 mmol/L (8-16); BLOOD UREA NITROGEN 8 mg/dL (7-26); BUN/CREATININE RATIO 12 (6-25); CALCIUM 8.2 mg/dL (8.4-10.2); CARBON DIOXIDE 30 mmol/L (22-29); CHLORIDE 106 mmol/L (98-107); CREATININE, SERUM 0.68 mg/dL (0.57-1.11); EST GLOMERULAR FILTRATION RATE > 60 ML/MIN (60-); GLUCOSE 110 mg/dL (74-118); POTASSIUM 3.5 mmol/L (3.5-5.1); SODIUM 140 mmol/L (136-145)
[2020-02-04 06:46] LABS: CREATINE KINASE 1776 IU/L (29-168)
[2020-02-04 07:02] LABS: ANISOCYTOSIS MODERATE; ELLIPTOCYTE, RBC SLIGHT; HYPOCHROMASIA SLIGHT; OVALOCYTES FEW
[2020-02-04 07:03] LABS: MICROCYTOSIS SLIGHT; TEAR DROP CELLS FEW
[2020-02-04 07:04] LABS: PLATELET ESTIMATE ADEQUATE; PLATELET MORPHOLOGY COMMENT NORMAL; RBC MORPHOLOGY COMMENT ABNORMAL; SCHISTOCYTES A
[2020-02-04 07:05] LABS: CHOL/HDL RATIO 3.2 (3.0-3.6); MAGNESIUM 2.1 MG/DL (1.3-2.1); PHOSPHORUS 3.8 MG/DL (2.3-4.7)
[2020-02-04 07:25] LABS: THYROID STIMULATING HORMONE 1.081 uIU/mL (0.350-4.940)
[2020-02-04] MEDS: DOCUSATE SODIUM 100 MG CAP PO SCH ×2 (08:13→16:56)
[2020-02-04] MEDS: FAMOTIDINE 20 MG/2 ML VIAL IV SCH ×2 (08:13→17:50)
[2020-02-04] MEDS ORDERED: MORPHINE SULFATE INJ 4 MG/ML INJ 1ML IV PRN (10:15)
[2020-02-04] MEDS ORDERED: ACETAMINOPHEN/CODEINE 300MG - 30MG TAB PO PRN (10:15)
[2020-02-04] MEDS ORDERED: SODIUM CHLORIDE 0.9% 1000ML 1,000 ML IV SCH (10:15)
[2020-02-04] MEDS ORDERED: ASPIRIN 81 MG CHEW TAB PO ONE (10:30)
[2020-02-04] MEDS ORDERED: TYLENOL # 31 EA PO (10:40)
[2020-02-04] MEDS: MORPHINE SULFATE 2 MG/ML SYR 1ML IV PRN ×2 (10:48→16:20)
[2020-02-04] MEDS ORDERED: LORAZEPAM INJ 2 MG/ML VIAL IV ONE ×2 (12:00→15:30)
[2020-02-04] MEDS ORDERED: GABAPENTIN 400 MG CAP PO SCH (15:00)
[2020-02-04] MEDS ORDERED: ACETAMIN/BUTALBITAL/CAFFEINE TAB PO ONE (15:00)
[2020-02-04 16:43] LABS: CREATINE KINASE MB 16.5 ng/mL (0-5.0)
[2020-02-04] MEDS ORDERED: BUSPIRONE HCL 5 MG TAB PO PRN (17:45)
[2020-02-04] MEDS ORDERED: LORAZEPAM 1 MG TAB PO ONE (18:00)
[2020-02-04] MEDS ORDERED: REMERON15 MG PO (18:12)
[2020-02-04] MEDS ORDERED: BUSPIRONE HCL5 MG PO (18:12)
[2020-02-04] MEDS ORDERED: IOPAMIDOL 370 MG/ML 200 ML INFUS..BTL INJ ONE (20:22)
[2020-02-04] MEDS ORDERED: SODIUM CHLORIDE 0.9% 100 ML ONE (20:22)
[2020-02-04] MEDS ORDERED: AMITRIPTYLINE HCL 25 MG TAB PO SCH (21:00)
[2020-02-04] MEDS ORDERED: ZOLPIDEM TARTRATE 10 MG TAB PO PRN (21:00)
[2020-02-04] MEDS ORDERED: MIRTAZAPINE 15 MG TAB PO SCH (21:00)
[2020-02-05] MEDS ORDERED: FAMOTIDINE 20 MG TAB PO SCH (07:30)
[2020-02-05] MEDS ORDERED: ESCITALOPRAM OXALATE 10 MG TAB PO SCH (09:00)
[2020-02-05] MEDS ORDERED: TIZANIDINE HCL 4 MG TAB PO SCH (09:00)
[2020-02-05] MEDS ORDERED: PANTOPRAZOLE SOD 40 MG TABEC PO SCH (09:00)
[2020-02-05] MEDS ORDERED: HYDROCHLOROTHIAZIDE 25 MG TAB PO SCH (09:00)
[2020-02-05] MEDS ORDERED: LISINOPRIL 20 MG TAB PO SCH (09:00)
== END 2020-02-04 18:28 | disposition home or self-care (01) | DRG 558 ==
LOC: ER 16:57 → ERHOLD 22:02 → MED/SURG 02-04 00:02
PROVIDERS: ADMIT Internal Medicine; ATTEND Internal Medicine
PROC: 02HV33Z Insertion of Infusion Device into Superior Vena Cava, Percutaneous Approach (ICD-10-PCS; principal; 2020-02-04)
PROC: B548ZZA Ultrasonography of Superior Vena Cava, Guidance (ICD-10-PCS; 2020-02-04)
DX: M62.82 Rhabdomyolysis (principal); F33.1 Major depressive disorder, recurrent, moderate; Z90.49 Acquired absence of other specified parts of digestive tract; Z88.5 Allergy status to narcotic agent; Z88.0 Allergy status to penicillin; Z88.8 Allergy status to other drugs, medicaments and biological substances; Z82.3 Family history of stroke; Z80.9 Family history of malignant neoplasm, unspecified; F41.9 Anxiety disorder, unspecified; F43.10 Post-traumatic stress disorder, unspecified
CPT/HCPCS: 36415; 36569; 70450; 70496; 70498; 71045; 72131; 80053; 80061; 81025; 82550; 82553; 83036; 83735; 84100; 84443; 84484; 85025; 86039; 86235; 93005; 93971; 99284; J1170; J2060; J2270; J2405; J7030; J7050; Q9967; U0002

== ENCOUNTER 2020-07-08 17:47 | Emergency (ER) | payer OTHER ==
[~2020-07-08] VITALS: Ht 182.9 cm; Wt 81.6 kg
[~2020-07-08 17:47] MED LIST changes: +AMBIEN10 MG PO; +AMITRIPTYLINE H25 MG PO; +BUSPIRONE HCL5 MG PO; +DIAZEPAM5 MG PO; +FIORINAL-COD 31 EACH PO; +GABAPENTIN400 MG PO; +OMEPRAZOLE40 MG PO; +PROMETHAZINE HC25 M1 PO; +REMERON15 MG PO; +TIZANIDINE HCL4 MG PO; +TYLENOL # 31 EA PO
[2020-07-08] MEDS ORDERED: HYDROCODONE/APAP 10MG-325MG TAB PO ONE (19:00)
[2020-07-08] MEDS ORDERED: ONDANSETRON HCL INJ 2MG/ML 2ML 2 MG/ML VIAL IV STA (19:00)
[2020-07-08 20:09] LABS: BASOPHILS # (AUTO) 0.1 (0.0-0.1); BASOPHILS % 0.5 % (0.0-1.0); EOSINOPHILS # (AUTO) 0.2 (0.0-0.4); EOSINOPHILS % 1.8 % (0.0-6.0); HEMATOCRIT 29.7 % (34.2-44.1); HEMOGLOBIN 7.8 g/dL (12.0-16.0); LYMPHOCYTES # (AUTO) 1.9 (1.0-3.2); LYMPHOCYTES % 17.6 % (18.0-39.1); MEAN CORPUSCULAR HEMOGLOBIN 17.1 pg (28-32); MEAN CORPUSCULAR HGB CONC 26.3 g/dL (31-35); MONOCYTES # (AUTO) 0.7 (0.2-0.8); MONOCYTES % 6.9 % (4.4-11.3); NEUTROPHILS # (AUTO) 7.8 (2.1-6.9); NEUTROPHILS % 72.6 % (38.7-80.0); PLATELET COUNT 272 x10e3/uL (140-360); RED BLOOD COUNT 4.57 x10e6/uL (3.6-5.1); RED CELL DISTRIBUTION WIDTH 23.9 % (11.7-14.4)
[2020-07-08 20:22] LABS: ANION GAP 14.9 mmol/L (8-16); BLOOD UREA NITROGEN 7 mg/dL (7-26); BUN/CREATININE RATIO 9 (6-25); CALCIUM 8.4 mg/dL (8.4-10.2); CARBON DIOXIDE 24 mmol/L (22-29); CHLORIDE 107 mmol/L (98-107); CREATININE, SERUM 0.77 mg/dL (0.57-1.11); EST GLOMERULAR FILTRATION RATE > 60 ML/MIN (60-); GLUCOSE 100 mg/dL (74-118); POTASSIUM 3.9 mmol/L (3.5-5.1); SODIUM 142 mmol/L (136-145)
[2020-07-08 20:25] LABS: BACTERIA,URINE RARE /HPF; CLARITY,URINE CLEAR (CLEAR); COLOR,URINE YELLOW (YELLOW); EPITHELIAL CELLS,URINE FEW /LPF; KETONES,URINE NEGATIVE (NEGATIVE); LEUKOCYTE ESTERASE ,URINE NEGATIVE (NEGATIVE); NITRITE,URINE NEGATIVE (NEGATIVE); PROTEIN,URINE DIPSTICK NEGATIVE (NEGATIVE); RBC,URINE 0-5 /HPF (0-5); URINE UROBILINOGEN 0.2 mg/dL (0.2 - 1); WBC,URINE (MAN) 0-5 /HPF (0-5)
[2020-07-08 20:35] LABS: HYPOCHROMASIA MODERATE; MICROCYTOSIS MARKED; PLATELET ESTIMATE ADEQUATE; POLYCHROMASIA FEW
[2020-07-08] MEDS ORDERED: MORPHINE SULFATE INJ 2 MG/ML SYR IV STA (20:35)
[2020-07-08 20:36] LABS: PLATELET MORPHOLOGY COMMENT NORMAL
[2020-07-08] MEDS ORDERED: MORPHINE SULFATE INJ 2 MG/ML SYR ONE (20:46)
[2020-07-08 22:29] VITALS: BP 151/92
[2020-07-08] MEDS ORDERED: ACETAMINOPHEN 325 MG TAB PO ONE (22:30)
[2020-07-08] MEDS ORDERED: ACETAMINOPHEN 325 MG TAB ONE (22:41)
[2020-07-08] MEDS ORDERED: DOXYCYCLINE HYCLATE TABLET 100 MG TAB ONE (22:44)
[2020-07-08] MEDS ORDERED: DOXYCYCLINE HYCLATE TABLET 100 MG TAB PO ONE (22:45)
== END 2020-07-08 23:00 | disposition home or self-care (01) ==
LOC: ER 20:45
DX: M54.5 Low back pain (principal); R11.0 Nausea; R16.2 Hepatomegaly with splenomegaly, not elsewhere classified; N80.9 Endometriosis, unspecified; E28.2 Polycystic ovarian syndrome; F41.9 Anxiety disorder, unspecified
CPT/HCPCS: 36415; 74176; 80048; 81001; 81025; 85025; 99284; J2270; J2405

== ENCOUNTER 2020-08-25 17:35 | Inpatient (IN) | payer OTHER ==
[~2020-08-25] VITALS: Ht 182.9 cm; Wt 105.2 kg
[2020-08-25] MEDS ORDERED: IOPAMIDOL 370 MG/ML 200 ML INFUS..BTL INJ ONE (18:32)
[2020-08-25] MEDS ORDERED: SODIUM CHLORIDE 0.9% 50ML 50 ML ONE (18:32)
[2020-08-25] MEDS ORDERED: SODIUM CHLORIDE 0.9% 1000ML 1,000 ML IV SCH ×2 (19:00→19:30)
[2020-08-25] MEDS ORDERED: DICYCLOMINE HCL 20 MG/2 ML VIAL IM NR (19:00)
[2020-08-25] MEDS ORDERED: PANTOPRAZOLE 40 MG 10ML VIAL IV STA (19:17)
[2020-08-25] MEDS ORDERED: SODIUM CHLORIDE FLUSH 10 ML SYR INJ PRN (19:30)
[2020-08-25] MEDS ORDERED: MORPHINE SULFATE INJ 2 MG/ML SYR IV PRN (19:30)
[2020-08-25] MEDS ORDERED: ONDANSETRON HCL INJ 2MG/ML 2ML 2 MG/ML VIAL IV NR (19:30)
[2020-08-25] MEDS ORDERED: DICYCLOMINE HCL 20 MG/2 ML VIAL IM ONE (19:38)
[2020-08-25] MEDS ORDERED: PANTOPRAZOLE 40 MG 10ML VIAL ONE (19:38)
[2020-08-25] MEDS ORDERED: ONDANSETRON HCL INJ 2MG/ML 2ML 2 MG/ML VIAL ONE (19:38)
[2020-08-25] MEDS ORDERED: SODIUM CHLORIDE 0.9% 1000ML 1,000 ML ONE (19:38)
[2020-08-25] MEDS ORDERED: PROMETHAZINE 25MG/ NS 50ML (IV) IV ONE (21:30)
[2020-08-25] MEDS ORDERED: PROMETHAZINE HCL (IM) 25 MG/ML VIAL IM ONE (21:35)
[2020-08-25] MEDS ORDERED: MORPHINE SULFATE INJ 4 MG/ML INJ 1ML ONE (21:35)
[2020-08-25 22:07] VITALS: BP 164/99
[2020-08-25] MEDS ORDERED: MORPHINE SULFATE INJ 4 MG/ML INJ 1ML IV PRN (23:30)
[2020-08-25] MEDS ORDERED: IMITREX100 MG PO (23:41)
[2020-08-25] MEDS ORDERED: FIORICET 50-301 EACH (23:41)
[2020-08-25] MEDS ORDERED: LISINOPRIL-HCT1 EACH PO (23:43)
[2020-08-26] VITALS (8 sets, daily range): BP systolic 130–169; BP diastolic 83–99
[2020-08-26] MEDS ORDERED: HYDRALAZINE HCL 20 MG/ML VIAL IV PRN
[2020-08-26] MEDS ORDERED: MORPHINE SULFATE INJ 4 MG/ML INJ 1ML IV PRN (00:45)
[2020-08-26] MEDS: MORPHINE SULFATE INJ 4 MG/ML INJ 1ML IV PRN ×7 (00:45→22:28)
[2020-08-26] MEDS ORDERED: BISACODYL 5 MG TAB EC PO ONE ×5 (01:00→23:30)
[2020-08-26 01:33] LABS: HEMATOCRIT 30.6 % (34.2-44.1); HEMOGLOBIN 8.3 g/dL (12.0-16.0)
[2020-08-26] MEDS: DIAZEPAM 5 MG TAB PO PRN ×2 (02:08→09:56)
[2020-08-26] MEDS ORDERED: BISACODYL 10 MG SUPP PR ONE ×4 (02:30→16:30)
[2020-08-26] MEDS ORDERED: PANTOPRAZOLE 40 MG 10ML VIAL IV STA (02:47)
[2020-08-26] MEDS: ONDANSETRON HCL INJ 2MG/ML 2ML 2 MG/ML VIAL IV PRN (03:18)
[2020-08-26] MEDS: SODIUM CHLORIDE 0.9% 1000ML 1,000 ML IV SCH ×4 (03:30→21:16)
[2020-08-26] MEDS ORDERED: PANTOPRAZOLE 40 MG 10ML VIAL ONE (04:18)
[2020-08-26] MEDS ORDERED: SODIUM CHLORIDE 0.9% 50ML 50 ML ONE ×3 (04:18→15:30)
[2020-08-26] MEDS ORDERED: SOD PHOSPHATE/SOD BIPHOSPHATE ENEMA 132 ML BTL PR ONE (04:30)
[2020-08-26] MEDS ORDERED: CITRATE OF MAGNESIA 300ML BOTTLE PO ONE ×3 (05:00→09:00)
[2020-08-26] MEDS: PANTOPRAZOL 40MG/SOD CHL 0.9% 250 ML IV SCH (05:57)
[2020-08-26] MEDS: PROMETHAZINE HCL (IM) 25 MG/ML VIAL IM PRN ×2 (06:34→15:23)
[2020-08-26 06:46] LABS: BASOPHILS % 0.5 % (0.0-1.0); EOSINOPHILS # (AUTO) 0.2 (0.0-0.4); EOSINOPHILS % 2.8 % (0.0-6.0); HEMATOCRIT 31.5 % (34.2-44.1); HEMOGLOBIN 8.5 g/dL (12.0-16.0); LYMPHOCYTES # (AUTO) 1.9 (1.0-3.2); LYMPHOCYTES % 29.8 % (18.0-39.1); MEAN CORPUSCULAR HEMOGLOBIN 18.6 pg (28-32); MEAN CORPUSCULAR VOLUME 68.9 fL (81-99); MONOCYTES # (AUTO) 0.6 (0.2-0.8); MONOCYTES % 8.9 % (4.4-11.3); NEUTROPHILS # (AUTO) 3.7 (2.1-6.9); NEUTROPHILS % 57.4 % (38.7-80.0); PLATELET COUNT 215 x10e3/uL (140-360); RED BLOOD COUNT 4.57 x10e6/uL (3.6-5.1); RED CELL DISTRIBUTION WIDTH 21.2 % (11.7-14.4)
[2020-08-26 07:07] LABS: ALANINE AMINOTRANSFERASE 15 IU/L (0-55); ALBUMIN 3.5 g/dL (3.5-5.0); ALBUMIN/GLOBULIN RATIO 1.2 (0.8-2.0); ALKALINE PHOSPHATASE 81 IU/L (40-150); ANION GAP 13.5 mmol/L (8-16); BLOOD UREA NITROGEN 6 mg/dL (7-26); BUN/CREATININE RATIO 8 (6-25); CALCIUM 8.4 mg/dL (8.4-10.2); CARBON DIOXIDE 26 mmol/L (22-29); CHLORIDE 105 mmol/L (98-107); CREATININE, SERUM 0.77 mg/dL (0.57-1.11); EST GLOMERULAR FILTRATION RATE > 60 ML/MIN (60-); GLUCOSE 94 mg/dL (74-118); POTASSIUM 3.5 mmol/L (3.5-5.1); SODIUM 141 mmol/L (136-145)
[2020-08-26 07:42] LABS: FERRITIN 9.9 ng/mL (4.63-204.00)
[2020-08-26] MEDS ORDERED: TIZANIDINE HCL 4 MG TAB PO SCH (09:00)
[2020-08-26] MEDS ORDERED: PANTOPRAZOLE 40 MG 10ML VIAL IV SCH ×2 (09:00)
[2020-08-26] MEDS: LISINOPRIL 20 MG TAB PO SCH (09:59)
[2020-08-26] MEDS: GABAPENTIN 400 MG CAP PO SCH ×3 (09:59→21:36)
[2020-08-26] MEDS: HYDROCHLOROTHIAZIDE 25 MG TAB PO SCH (10:01)
[2020-08-26 12:16] LABS: HEMATOCRIT 32.1 % (34.2-44.1); HEMOGLOBIN 8.8 g/dL (12.0-16.0)
[2020-08-26] MEDS ORDERED: BUTALB-ASPIRIN1 EACH PO (12:21)
[2020-08-26] MEDS ORDERED: CAFFEINE PO PRN (13:30)
[2020-08-26] MEDS ORDERED: BUTALBITAL PO PRN (13:30)
[2020-08-26] MEDS ORDERED: ASPIRIN PO PRN (13:30)
[2020-08-26] MEDS ORDERED: HYDROMORPHONE 1MG/1ML INJ IV ONE (14:00)
[2020-08-26] MEDS ORDERED: CYANOCOBALAMIN INJ 1,000 MCG/ML VIAL IM ONE (14:00)
[2020-08-26] MEDS: IRON SUCROSE 100 MG in SODIUM CHLORIDE 0.9% 100 ML 100 ML IV SCH (14:44)
[2020-08-26] MEDS: SUMATRIPTAN SUCCINATE 25 MG TAB PO PRN (18:39)
[2020-08-26] MEDS: TIZANIDINE HCL 4 MG TAB PO PRN (18:39)
[2020-08-26] MEDS: AMITRIPTYLINE HCL 25 MG TAB PO SCH (21:36)
[2020-08-26] MEDS ORDERED: PEG (High)/E-LYTE SOLN 4,000 ML BTL PO ONE (23:00)
[2020-08-27] VITALS (7 sets, daily range): BP systolic 124–143; BP diastolic 74–97
[2020-08-27] MEDS ORDERED: BISACODYL 5 MG TAB EC PO ONE
[2020-08-27] MEDS: PANTOPRAZOL 40MG/SOD CHL 0.9% 250 ML IV SCH (03:43)
[2020-08-27] MEDS: SODIUM CHLORIDE 0.9% 1000ML 1,000 ML IV SCH ×3 (03:45→23:02)
[2020-08-27] MEDS ORDERED: PANTOPRAZOL 40MG/SOD CHL 0.9% 50 ML IV ONE (03:52)
[2020-08-27] MEDS: MORPHINE SULFATE INJ 4 MG/ML INJ 1ML IV PRN ×2 (05:06→08:13)
[2020-08-27 05:24] LABS: BASOPHILS % 0.6 % (0.0-1.0); EOSINOPHILS # (AUTO) 0.1 (0.0-0.4); EOSINOPHILS % 1.9 % (0.0-6.0); HEMATOCRIT 34.3 % (34.2-44.1); HEMOGLOBIN 9.3 g/dL (12.0-16.0); LYMPHOCYTES # (AUTO) 1.3 (1.0-3.2); LYMPHOCYTES % 17.5 % (18.0-39.1); MEAN CORPUSCULAR HEMOGLOBIN 18.7 pg (28-32); MEAN CORPUSCULAR HGB CONC 27.1 g/dL (31-35); MEAN CORPUSCULAR VOLUME 68.9 fL (81-99); MONOCYTES # (AUTO) 0.5 (0.2-0.8); MONOCYTES % 6.7 % (4.4-11.3); NEUTROPHILS # (AUTO) 5.3 (2.1-6.9); NEUTROPHILS % 72.7 % (38.7-80.0); PLATELET COUNT 205 x10e3/uL (140-360); RED BLOOD COUNT 4.98 x10e6/uL (3.6-5.1); RED CELL DISTRIBUTION WIDTH 21.2 % (11.7-14.4)
[2020-08-27 05:40] LABS: ANION GAP 13.6 mmol/L (8-16); CALCIUM 8.6 mg/dL (8.4-10.2); CARBON DIOXIDE 24 mmol/L (22-29); CHLORIDE 107 mmol/L (98-107); CREATININE, SERUM 0.67 mg/dL (0.57-1.11); EST GLOMERULAR FILTRATION RATE > 60 ML/MIN (60-); GLUCOSE 101 mg/dL (74-118); POTASSIUM 3.6 mmol/L (3.5-5.1); SODIUM 141 mmol/L (136-145)
[2020-08-27 05:48] LABS: BUN/CREATININE RATIO 7 (6-25)
[2020-08-27] MEDS ORDERED: MAGNESIUM HYDROXIDE 30 ML UDC PO ONE (06:00)
[2020-08-27 06:11] LABS: BLOOD UREA NITROGEN < 5 mg/dL (7-26)
[2020-08-27] MEDS: ONDANSETRON HCL INJ 2MG/ML 2ML 2 MG/ML VIAL IV PRN (06:36)
[2020-08-27 07:33] LABS: ANISOCYTOSIS MODERATE; ELLIPTOCYTE, RBC SLIGHT; HYPOCHROMASIA SLIGHT; MICROCYTOSIS SLIGHT; OVALOCYTES FEW; PLATELET ESTIMATE ADEQUATE
[2020-08-27 07:34] LABS: PLATELET MORPHOLOGY COMMENT FEW LARGE
[2020-08-27 07:35] LABS: RBC MORPHOLOGY COMMENT ABNORMAL
[2020-08-27] MEDS: CYANOCOBALAMIN 1,000 MCG TAB PO SCH (08:18)
[2020-08-27] MEDS: HYDROCHLOROTHIAZIDE 25 MG TAB PO SCH (08:19)
[2020-08-27] MEDS: GABAPENTIN 400 MG CAP PO SCH ×4 (08:19→21:23)
[2020-08-27] MEDS: LISINOPRIL 20 MG TAB PO SCH (08:19)
[2020-08-27] MEDS: TIZANIDINE HCL 4 MG TAB PO PRN (08:25)
[2020-08-27] MEDS: DIAZEPAM 5 MG TAB PO PRN (08:25)
[2020-08-27] MEDS: PROMETHAZINE HCL (IM) 25 MG/ML VIAL IM PRN ×2 (08:25→17:51)
[2020-08-27] MEDS ORDERED: SODIUM CHLORIDE 0.9% 50ML 50 ML ONE ×2 (08:32→17:50)
[2020-08-27] MEDS ORDERED: CYANOCOBALAMIN INJ 1,000 MCG/ML VIAL IM SCH (09:00)
[2020-08-27] MEDS ORDERED: SOD PHOSPHATE/SOD BIPHOSPHATE ENEMA 132 ML BTL PR ONE ×2 (09:30→10:25)
[2020-08-27] MEDS: HYDROMORPHONE 1MG/1ML INJ IV PRN ×4 (10:42→23:01)
[2020-08-27] MEDS ORDERED: PROPOFOL IV EMULSION 10 MG/ML 20 ML VIAL ONE (13:44)
[2020-08-27] MEDS ORDERED: GLUCAGON FOR INJ 1 MG VIAL ONE (15:44)
[2020-08-27] MEDS ORDERED: HYOSCYAMINE SULFATE 0.5 MG/ML INJ ONE (15:44)
[2020-08-27] MEDS: IRON SUCROSE 100 MG in SODIUM CHLORIDE 0.9% 100 ML 100 ML IV SCH ×3 (17:51→18:24)
[2020-08-27] MEDS: SUMATRIPTAN SUCCINATE 25 MG TAB PO PRN (18:03)
[2020-08-27] MEDS: AMITRIPTYLINE HCL 25 MG TAB PO SCH (21:22)
[2020-08-27] MEDS: CHLORDIAZEPOXIDE/CLIDINIUM 1 CAP PO SCH (21:23)
[2020-08-27] MEDS: ZOLPIDEM TARTRATE 10 MG TAB PO PRN (23:01)
[2020-08-28] VITALS (8 sets, daily range): BP systolic 114–152; BP diastolic 69–99
[2020-08-28] MEDS: PANTOPRAZOL 40MG/SOD CHL 0.9% 250 ML IV SCH (04:11)
[2020-08-28] MEDS: HYDROMORPHONE 1MG/1ML INJ IV PRN ×6 (04:53→21:10)
[2020-08-28 06:02] LABS: BASOPHILS % 0.4 % (0.0-1.0); EOSINOPHILS # (AUTO) 0.2 (0.0-0.4); EOSINOPHILS % 2.5 % (0.0-6.0); HEMATOCRIT 30.7 % (34.2-44.1); HEMOGLOBIN 8.4 g/dL (12.0-16.0); LYMPHOCYTES # (AUTO) 1.9 (1.0-3.2); LYMPHOCYTES % 27.7 % (18.0-39.1); MEAN CORPUSCULAR HGB CONC 27.4 g/dL (31-35); MEAN CORPUSCULAR VOLUME 69.3 fL (81-99); MONOCYTES # (AUTO) 0.6 (0.2-0.8); MONOCYTES % 8.2 % (4.4-11.3); NEUTROPHILS # (AUTO) 4.1 (2.1-6.9); NEUTROPHILS % 60.8 % (38.7-80.0); PLATELET COUNT 202 x10e3/uL (140-360); RED BLOOD COUNT 4.43 x10e6/uL (3.6-5.1)
[2020-08-28 06:23] LABS: ALANINE AMINOTRANSFERASE 20 IU/L (0-55); ALKALINE PHOSPHATASE 78 IU/L (40-150); ANION GAP 12.4 mmol/L (8-16); BLOOD UREA NITROGEN < 5 mg/dL (7-26); CALCIUM 8.2 mg/dL (8.4-10.2); CARBON DIOXIDE 27 mmol/L (22-29); CHLORIDE 107 mmol/L (98-107); EST GLOMERULAR FILTRATION RATE > 60 ML/MIN (60-); GLUCOSE 101 mg/dL (74-118); POTASSIUM 3.4 mmol/L (3.5-5.1); SODIUM 143 mmol/L (136-145)
[2020-08-28 06:26] LABS: BUN/CREATININE RATIO 7 (6-25)
[2020-08-28] MEDS: SODIUM CHLORIDE 0.9% 1000ML 1,000 ML IV SCH ×2 (09:05→18:40)
[2020-08-28] MEDS: CHLORDIAZEPOXIDE/CLIDINIUM 1 CAP PO SCH ×4 (09:13→20:49)
[2020-08-28] MEDS: LISINOPRIL 20 MG TAB PO SCH (09:13)
[2020-08-28] MEDS: GABAPENTIN 400 MG CAP PO SCH ×3 (09:13→20:49)
[2020-08-28] MEDS: CYANOCOBALAMIN 1,000 MCG TAB PO SCH (09:13)
[2020-08-28] MEDS: HYDROCHLOROTHIAZIDE 25 MG TAB PO SCH (09:13)
[2020-08-28] MEDS: DIAZEPAM 5 MG TAB PO PRN (11:17)
[2020-08-28] MEDS: TIZANIDINE HCL 4 MG TAB PO SCH ×3 (12:12→20:49)
[2020-08-28] MEDS ORDERED: POTASSIUM CHLORIDE 20 MEQ TAB CR PO ONE (14:00)
[2020-08-28] MEDS: IRON SUCROSE 100 MG in SODIUM CHLORIDE 0.9% 100 ML 100 ML IV SCH (14:30)
[2020-08-28] MEDS: SUMATRIPTAN SUCCINATE 25 MG TAB PO PRN (16:51)
[2020-08-28] MEDS: PROMETHAZINE HCL (IM) 25 MG/ML VIAL IM PRN (18:33)
[2020-08-28] MEDS: AMITRIPTYLINE HCL 25 MG TAB PO SCH (20:49)
[2020-08-28] MEDS: ZOLPIDEM TARTRATE 10 MG TAB PO PRN (21:07)
[2020-08-29] MEDS: HYDROMORPHONE 1MG/1ML INJ IV PRN ×4 (00:10→08:54)
[2020-08-29 00:35] VITALS: BP 143/81
[2020-08-29] MEDS: PANTOPRAZOL 40MG/SOD CHL 0.9% 250 ML IV SCH (03:09)
[2020-08-29] MEDS: SODIUM CHLORIDE 0.9% 1000ML 1,000 ML IV SCH ×2 (03:09→11:17)
[2020-08-29 04:00] VITALS: BP 144/83
[2020-08-29] MEDS: DIAZEPAM 5 MG TAB PO PRN (06:09)
[2020-08-29 06:38] LABS: BASOPHILS % 0.6 % (0.0-1.0); EOSINOPHILS # (AUTO) 0.2 (0.0-0.4); EOSINOPHILS % 2.2 % (0.0-6.0); HEMOGLOBIN 8.7 g/dL (12.0-16.0); LYMPHOCYTES # (AUTO) 2.4 (1.0-3.2); LYMPHOCYTES % 35.2 % (18.0-39.1); MEAN CORPUSCULAR HGB CONC 27.2 g/dL (31-35); MONOCYTES # (AUTO) 0.5 (0.2-0.8); MONOCYTES % 7.2 % (4.4-11.3); NEUTROPHILS # (AUTO) 3.6 (2.1-6.9); NEUTROPHILS % 53.6 % (38.7-80.0); PLATELET COUNT 192 x10e3/uL (140-360); RED BLOOD COUNT 4.57 x10e6/uL (3.6-5.1); RED CELL DISTRIBUTION WIDTH 21.2 % (11.7-14.4)
[2020-08-29 06:59] LABS: ANION GAP 10.6 mmol/L (8-16); BLOOD UREA NITROGEN < 5 mg/dL (7-26); BUN/CREATININE RATIO 7 (6-25); CALCIUM 8.2 mg/dL (8.4-10.2); CARBON DIOXIDE 25 mmol/L (22-29); CHLORIDE 108 mmol/L (98-107); CREATININE, SERUM 0.71 mg/dL (0.57-1.11); EST GLOMERULAR FILTRATION RATE > 60 ML/MIN (60-); GLUCOSE 92 mg/dL (74-118); POTASSIUM 3.6 mmol/L (3.5-5.1); SODIUM 140 mmol/L (136-145)
[2020-08-29 08:38] VITALS: BP 154/107
[2020-08-29] MEDS: LISINOPRIL 20 MG TAB PO SCH (08:42)
[2020-08-29] MEDS: CHLORDIAZEPOXIDE/CLIDINIUM 1 CAP PO SCH ×2 (08:43→12:04)
[2020-08-29] MEDS: CYANOCOBALAMIN 1,000 MCG TAB PO SCH (08:44)
[2020-08-29] MEDS: GABAPENTIN 400 MG CAP PO SCH (08:44)
[2020-08-29] MEDS: HYDROCHLOROTHIAZIDE 25 MG TAB PO SCH (08:44)
[2020-08-29] MEDS: TIZANIDINE HCL 4 MG TAB PO SCH (08:44)
[2020-08-29] MEDS: PROMETHAZINE HCL (IM) 25 MG/ML VIAL IM PRN (08:51)
[2020-08-29] MEDS ORDERED: TIZANIDINE HCL4 MG PO (09:58)
[2020-08-29 09:59] VITALS: BP 154/107
[2020-08-29] MEDS ORDERED: MOTEGRITY1 MG PO (09:59)
[2020-08-29] MEDS ORDERED: VITAMIN B-121000 MCG PO (09:59)
== END 2020-08-29 12:41 | disposition home or self-care (01) | DRG 391 ==
LOC: FSED 17:53 → ERHOLD 19:47 → MED/SURG3 22:34 → OBSVTOIN 08-27 14:12
PROVIDERS: ADMIT Internal Medicine; ATTEND Internal Medicine
PROC: 0DB78ZX Excision of Stomach, Pylorus, Via Natural or Artificial Opening Endoscopic, Diagnostic (ICD-10-PCS; 2020-08-27)
PROC: 0DB68ZX Excision of Stomach, Via Natural or Artificial Opening Endoscopic, Diagnostic (ICD-10-PCS; 2020-08-27)
PROC: 0DB58ZX Excision of Esophagus, Via Natural or Artificial Opening Endoscopic, Diagnostic (ICD-10-PCS; 2020-08-27)
PROC: 0DBP8ZX Excision of Rectum, Via Natural or Artificial Opening Endoscopic, Diagnostic (ICD-10-PCS; 2020-08-27)
PROC: 0D758ZZ Dilation of Esophagus, Via Natural or Artificial Opening Endoscopic (ICD-10-PCS; principal; 2020-08-27 15:46)
PROC: 0DB98ZX Excision of Duodenum, Via Natural or Artificial Opening Endoscopic, Diagnostic (ICD-10-PCS; 2020-08-27 15:46)
DX: K29.70 Gastritis, unspecified, without bleeding (principal); K20.91 Esophagitis, unspecified with bleeding; D64.9 Anemia, unspecified; I10 Essential (primary) hypertension; F32.9 Major depressive disorder, single episode, unspecified; K21.9 Gastro-esophageal reflux disease without esophagitis; Z88.5 Allergy status to narcotic agent; Z88.0 Allergy status to penicillin; E66.01 Morbid (severe) obesity due to excess calories; K58.1 Irritable bowel syndrome with constipation; G43.909 Migraine, unspecified, not intractable, without status migrainosus; G62.9 Polyneuropathy, unspecified; Z90.49 Acquired absence of other specified parts of digestive tract; Z80.1 Family history of malignant neoplasm of trachea, bronchus and lung; Z80.3 Family history of malignant neoplasm of breast; E03.9 Hypothyroidism, unspecified; F41.9 Anxiety disorder, unspecified; E28.2 Polycystic ovarian syndrome; G89.4 Chronic pain syndrome; E53.8 Deficiency of other specified B group vitamins; Z20.822 Contact with and (suspected) exposure to COVID-19; K62.1 Rectal polyp; K64.8 Other hemorrhoids; Z68.31 Body mass index [BMI] 31.0-31.9, adult
CPT/HCPCS: 36415; 43239; 45378; 74177; 80048; 80053; 80076; 81003; 81025; 82270; 82607; 82728; 82746; 83540; 84443; 84466; 85014; 85018; 85025; 85045; 85651; 86140; 88305; 88312; 96372; 96374; 96376; 99284; G0378; J0360; J0500; J1170; J1610; J1756; J1980; J2270; J2405; J2550; J3420; J7030; Q9967; U0002

== ENCOUNTER 2020-10-02 10:16 | Observation (INO) | payer OTHER ==
[2020-09-30 13:36] LABS: BASOPHILS # (AUTO) 0.1 (0.0-0.1); BASOPHILS % 0.8 % (0.0-1.0); EOSINOPHILS # (AUTO) 0.1 (0.0-0.4); EOSINOPHILS % 1.4 % (0.0-6.0); HEMOGLOBIN 10.5 g/dL (12.0-16.0); LYMPHOCYTES # (AUTO) 1.7 (1.0-3.2); LYMPHOCYTES % 20.4 % (18.0-39.1); MEAN CORPUSCULAR HGB CONC 27.6 g/dL (31-35); MEAN CORPUSCULAR VOLUME 72.5 fL (81-99); MONOCYTES # (AUTO) 0.6 (0.2-0.8); MONOCYTES % 6.9 % (4.4-11.3); NEUTROPHILS % 70.1 % (38.7-80.0); PLATELET COUNT 253 x10e3/uL (140-360); RED BLOOD COUNT 5.24 x10e6/uL (3.6-5.1); RED CELL DISTRIBUTION WIDTH 21.7 % (11.7-14.4)
[2020-09-30 13:47] LABS: CLARITY,URINE CLEAR (CLEAR); COLOR,URINE YELLOW (YELLOW); KETONES,URINE NEGATIVE (NEGATIVE); LEUKOCYTE ESTERASE ,URINE LARGE (NEGATIVE); NITRITE,URINE NEGATIVE (NEGATIVE); PROTEIN,URINE DIPSTICK NEGATIVE (NEGATIVE); URINE UROBILINOGEN 0.2 mg/dL (0.2 - 1)
[2020-09-30 14:07] LABS: ALANINE AMINOTRANSFERASE 12 IU/L (0-55); ALBUMIN 3.9 g/dL (3.5-5.0); ALBUMIN/GLOBULIN RATIO 1.2 (0.8-2.0); ALKALINE PHOSPHATASE 76 IU/L (40-150); ANION GAP 12.6 mmol/L (8-16); BLOOD UREA NITROGEN 7 mg/dL (7-26); BUN/CREATININE RATIO 10 (6-25); CALCIUM 9.2 mg/dL (8.4-10.2); CARBON DIOXIDE 29 mmol/L (22-29); CHLORIDE 102 mmol/L (98-107); CREATININE, SERUM 0.73 mg/dL (0.57-1.11); EST GLOMERULAR FILTRATION RATE 87 ML/MIN (60-); GLUCOSE 99 mg/dL (74-118); POTASSIUM 3.6 mmol/L (3.5-5.1); SODIUM 140 mmol/L (136-145)
[~2020-10-02] VITALS: Ht 167.6 cm; Wt 102.5 kg
[~2020-10-02 10:16] MED LIST changes: +BUTALB-ASPIRIN1 EACH PO; +FIORICET 50-301 EACH; +IMITREX100 MG PO; +LISINOPRIL-HCT1 EACH PO; +MELATONIN3 MG PO; +MIRALAX17 GM PO; +MOTEGRITY1 MG PO; +MOTEGRITY2 MG PO; +VITAMIN B-121000 MCG PO
[2020-10-02] MEDS ORDERED: SODIUM CHLORIDE 0.9% 50ML 100 ML ONE (11:07)
[2020-10-02] MEDS ORDERED: LIDOCAINE 1% W/EPINEPHRINE 20 ML VIAL ONE (11:29)
[2020-10-02] MEDS ORDERED: BUPIVACAINE HCL 0.5% INJ 30 ML VIAL INJ ONE (11:30)
[2020-10-02] MEDS ORDERED: HYDROCODON-ACE1 EA15 PO (12:24)
[2020-10-02] MEDS ORDERED: NEOSTIGMINE 1 MG/ML 10ML VIAL ONE (12:38)
[2020-10-02] MEDS ORDERED: ONDANSETRON HCL INJ 2MG/ML 2ML 2 MG/ML VIAL ONE ×2 (12:38→15:42)
[2020-10-02] MEDS ORDERED: DEXAMETHASONE SOD PHOS INJ 4 MG/ML VIAL ONE (12:38)
[2020-10-02] MEDS ORDERED: POVIDONE IODINE 0.05% 0.05 % ML PO ONE (12:38)
[2020-10-02] MEDS ORDERED: SEVOFLURANE INHAL SOLN 250 ML PEN BTL ONE (12:38)
[2020-10-02] MEDS ORDERED: LIDOCAINE HCL 2% LOCAL INJ 5 ML SDV VIAL INJ ONE (12:38)
[2020-10-02] MEDS ORDERED: PROPOFOL IV EMULSION 10 MG/ML 20 ML VIAL ONE (12:38)
[2020-10-02] MEDS ORDERED: GLYCOPYRROLATE INJ 0.2 MG/ML VIAL ONE (12:38)
[2020-10-02] MEDS ORDERED: ACETAMINOPHEN 1000 MG/100 ML 100 ML IV ONE (13:36)
[2020-10-02] MEDS ORDERED: FENTANYL CITRATE/PF 100MCG/2 ML INJ ONE ×2 (13:45→15:42)
[2020-10-02] MEDS ORDERED: MIDAZOLAM HCL 2 MG/2 ML VIAL ONE (13:45)
[2020-10-02] MEDS ORDERED: BUTALBITAL PO SCH (15:45)
[2020-10-02] MEDS ORDERED: DIPHENHYDRAMINE HCL 25 MG CAP PO PRN ×3 (15:45→16:15)
[2020-10-02] MEDS ORDERED: IBUPROFEN 600 MG TAB PO PRN (15:45)
[2020-10-02] MEDS ORDERED: CAFFEINE PO SCH (15:45)
[2020-10-02] MEDS ORDERED: BISACODYL 10 MG SUPP PR PRN (15:45)
[2020-10-02] MEDS ORDERED: ACETAMINOPHEN 325 MG TAB PO PRN (15:45)
[2020-10-02] MEDS ORDERED: D5.45%NS/KCL 20MEQ 1,000 ML IV SCH (15:45)
[2020-10-02] MEDS ORDERED: SUMATRIPTAN SUCCINATE 25 MG TAB PO PRN (15:45)
[2020-10-02] MEDS ORDERED: ZOLPIDEM TARTRATE 5 MG TAB PO PRN (15:45)
[2020-10-02] MEDS ORDERED: PROMETHAZINE HCL 25 MG TAB PO PRN (15:45)
[2020-10-02] MEDS ORDERED: HYDROCODONE/APAP 7.5MG-325MG 1 EA TAB PO PRN (15:45)
[2020-10-02] MEDS ORDERED: POLYETHYLENE GLYCOL 3350 17 GM PACK PO PRN (15:45)
[2020-10-02] MEDS ORDERED: NALOXONE HCL INJ 0.4 MG/ML AMP IV PRN ×2 (15:45→16:15)
[2020-10-02] MEDS ORDERED: PROMETHAZINE HCL (IM) 25 MG/ML VIAL IM PRN (15:45)
[2020-10-02] MEDS ORDERED: [UNRECOGNIZED DRUG - OTHER] PO SCH (15:45)
[2020-10-02] MEDS ORDERED: DOCUSATE SODIUM 100 MG CAP PO PRN (15:45)
[2020-10-02] MEDS ORDERED: ASPIRIN PO SCH (15:45)
[2020-10-02] MEDS ORDERED: TIZANIDINE HCL 4 MG TAB PO PRN (15:45)
[2020-10-02] MEDS ORDERED: HYDROMORPHONE 1MG/1ML INJ ONE (16:02)
[2020-10-02] MEDS ORDERED: KETOROLAC TROMETHAMINE 30 MG/ML VIAL IV PRN (16:15)
[2020-10-02] MEDS ORDERED: ACETAMINOPHEN 1000 MG/100 ML IV PRN (16:15)
[2020-10-02] MEDS ORDERED: ONDANSETRON HCL INJ 2MG/ML 2ML 2 MG/ML VIAL IV PRN (16:15)
[2020-10-02] MEDS ORDERED: HYDROMORPHONE 0.2MG/ML-SOD CHL 30ML PCA SYRINGE IV PRN (16:15)
[2020-10-02] MEDS: HYDROMORPHONE 0.2MG/ML-SOD CHL 30ML PCA SYRINGE IV PRN ×2 (16:18→22:50)
[2020-10-02 17:02] VITALS: BP 181/103
[2020-10-02 17:18] VITALS: BP 181/103
[2020-10-02 17:38] VITALS: BP 181/103
[2020-10-02] MEDS ORDERED: HYDRALAZINE HCL 20 MG/ML VIAL IV ONE (18:40)
[2020-10-02 20:00] VITALS: BP_SYST 160; BP_SYST 181; BP_DIAS 103; BP_DIAS 89
[2020-10-02] MEDS: AMITRIPTYLINE HCL 25 MG TAB PO SCH (21:00)
[2020-10-02] MEDS: MELATONIN 5 MG TABLET PO SCH (21:00)
[2020-10-02] MEDS: GABAPENTIN 400 MG CAP PO SCH (21:00)
[2020-10-02] MEDS: PROMETHAZINE 12.5MG/ NACL 0.9% 12.5 MG/50 ML BAG IV PRN (21:06)
[2020-10-02] MEDS: D5.45%NS/KCL 20MEQ 1,000 ML IV SCH (22:03)
[2020-10-02] MEDS: Cefazolin 2 GM in SODIUM CHLORIDE 0.9% 50ML 50 ML IV SCH (22:12)
[2020-10-02] MEDS: ZOLPIDEM TARTRATE 10 MG TAB PO PRN (22:13)
[2020-10-03] VITALS (8 sets, daily range): BP systolic 135–176; BP diastolic 84–100
[2020-10-03] MEDS: PROMETHAZINE 12.5MG/ NACL 0.9% 12.5 MG/50 ML BAG IV PRN ×5 (00:58→21:40)
[2020-10-03] MEDS: Cefazolin 2 GM in SODIUM CHLORIDE 0.9% 50ML 50 ML IV SCH ×2 (05:22→11:24)
[2020-10-03] MEDS ORDERED: FAMOTIDINE 20 MG/2 ML VIAL IV ONE (06:00)
[2020-10-03 06:01] LABS: BASOPHILS # (AUTO) 0.1 (0.0-0.1); BASOPHILS % 0.4 % (0.0-1.0); EOSINOPHILS % 0.3 % (0.0-6.0); HEMATOCRIT 37.8 % (34.2-44.1); HEMOGLOBIN 10.7 g/dL (12.0-16.0); LYMPHOCYTES # (AUTO) 2.5 (1.0-3.2); LYMPHOCYTES % 18.1 % (18.0-39.1); MEAN CORPUSCULAR HEMOGLOBIN 20.4 pg (28-32); MEAN CORPUSCULAR HGB CONC 28.3 g/dL (31-35); MONOCYTES % 7.5 % (4.4-11.3); NEUTROPHILS # (AUTO) 10.2 (2.1-6.9); NEUTROPHILS % 73.1 % (38.7-80.0); PLATELET COUNT 209 x10e3/uL (140-360); RED BLOOD COUNT 5.25 x10e6/uL (3.6-5.1); RED CELL DISTRIBUTION WIDTH 21.8 % (11.7-14.4)
[2020-10-03 06:25] LABS: BLOOD UREA NITROGEN < 5 mg/dL (7-26); CALCIUM 8.3 mg/dL (8.4-10.2); CARBON DIOXIDE 24 mmol/L (22-29); CHLORIDE 105 mmol/L (98-107); EST GLOMERULAR FILTRATION RATE 91 ML/MIN (60-); GLUCOSE 102 mg/dL (74-118); SODIUM 140 mmol/L (136-145)
[2020-10-03 06:27] LABS: BUN/CREATININE RATIO 7 (6-25)
[2020-10-03] MEDS: D5.45%NS/KCL 20MEQ 1,000 ML IV SCH ×3 (07:46→16:52)
[2020-10-03] MEDS: HYDROMORPHONE 0.2MG/ML-SOD CHL 30ML PCA SYRINGE IV PRN ×2 (07:48→21:47)
[2020-10-03] MEDS: CYANOCOBALAMIN 1,000 MCG TAB PO SCH (09:00)
[2020-10-03] MEDS: HYDROCHLOROTHIAZIDE 25 MG TAB PO SCH (09:00)
[2020-10-03] MEDS: GABAPENTIN 400 MG CAP PO SCH ×3 (09:00→22:23)
[2020-10-03] MEDS: LISINOPRIL 20 MG TAB PO SCH (09:00)
[2020-10-03] MEDS ORDERED: HYDRALAZINE HCL 20 MG/ML VIAL IV ONE (09:15)
[2020-10-03] MEDS: FAMOTIDINE 20 MG/2 ML VIAL IV SCH ×2 (09:44→21:40)
[2020-10-03] MEDS: SIMETHICONE 80 MG CHEW PO PRN ×2 (09:47→18:29)
[2020-10-03] MEDS: DIAZEPAM 5 MG TAB PO PRN ×2 (09:57→18:29)
[2020-10-03] MEDS: AMITRIPTYLINE HCL 25 MG TAB PO SCH (21:00)
[2020-10-03] MEDS: MELATONIN 5 MG TABLET PO SCH (21:00)
[2020-10-03] MEDS: ZOLPIDEM TARTRATE 10 MG TAB PO PRN (22:23)
[2020-10-04] VITALS: BP 154/100
[2020-10-04] MEDS: DIAZEPAM 5 MG TAB PO PRN ×2 (00:30→11:41)
[2020-10-04 00:51] VITALS: BP 154/100
[2020-10-04] MEDS: D5.45%NS/KCL 20MEQ 1,000 ML IV SCH ×2 (02:58→13:00)
[2020-10-04 04:00] VITALS: BP 144/92
[2020-10-04 08:38] VITALS: BP 133/74
[2020-10-04] MEDS: FAMOTIDINE 20 MG/2 ML VIAL IV SCH (09:00)
[2020-10-04] MEDS: GABAPENTIN 400 MG CAP PO SCH (09:00)
[2020-10-04] MEDS: CYANOCOBALAMIN 1,000 MCG TAB PO SCH (09:00)
[2020-10-04] MEDS: LISINOPRIL 20 MG TAB PO SCH (09:00)
[2020-10-04] MEDS: HYDROCHLOROTHIAZIDE 25 MG TAB PO SCH (09:00)
[2020-10-04 09:52] VITALS: BP 133/74
[2020-10-04] MEDS ORDERED: HYDROMORPHONE 1MG/1ML INJ IM ONE (11:30)
[2020-10-04] MEDS ORDERED: HYDROCODONE/APAP 7.5MG-325MG 1 EA TAB PO PRN (11:30)
[2020-10-04] MEDS ORDERED: PROMETHAZINE HCL (IM) 25 MG/ML VIAL IM PRN (11:30)
[2020-10-04 12:41] VITALS: BP 140/88
[2020-10-04] MEDS ORDERED: DIPHENOXYLATE/ATROPINE TAB PO PRN (13:15)
== END 2020-10-04 15:00 | disposition home or self-care (01) ==
LOC: OR 10:16 → PACU V 15:43 → MED/SURG 17:10
PROVIDERS: ADMIT Obstetrics & Gynecology; ATTEND Obstetrics & Gynecology
DX: N80.9 Endometriosis, unspecified (principal); N94.6 Dysmenorrhea, unspecified; N94.10 Unspecified dyspareunia; I10 Essential (primary) hypertension; E78.00 Pure hypercholesterolemia, unspecified; F32.9 Major depressive disorder, single episode, unspecified; K58.9 Irritable bowel syndrome, unspecified
CPT/HCPCS: 36415; 80048; 80053; 81003; 84702; 85025; 86850; 86900; 88304; 88305; 88307; 93005; G0378; J0360; J0690; J1100; J1170; J2001; J2250; J2405; J2550; J2710; J3010

== ENCOUNTER 2021-06-11 16:05 | Emergency (ER) | payer OTHER ==
[~2021-06-11] VITALS: Ht 182.9 cm; Wt 84.8 kg
[~2021-06-11 16:05] MED LIST changes: +HYDROCODON-ACE1 EA15 PO
[2021-06-11] MEDS ORDERED: ALBUTEROL/IPRATROPIUM 3 ML NEB ONE (18:07)
[2021-06-11] MEDS ORDERED: CEFDINIR300 MG PO (18:14)
[2021-06-11] MEDS ORDERED: MEDROL4 MG PO (18:15)
[2021-06-11] MEDS ORDERED: ALBUTEROL/IPRATROPIUM 3 ML NEB NEB ONE (18:15)
[2021-06-11] MEDS ORDERED: GUAIFEN-CODEINE10 ML PO (18:17)
[2021-06-11] MEDS ORDERED: VENTOLIN HFA18 GM INH (18:20)
== END 2021-06-11 18:34 | disposition home or self-care (01) ==
LOC: FSED 16:25
DX: R05.9 Cough, unspecified (principal); J20.9 Acute bronchitis, unspecified; G43.909 Migraine, unspecified, not intractable, without status migrainosus; I10 Essential (primary) hypertension; K21.9 Gastro-esophageal reflux disease without esophagitis; F41.9 Anxiety disorder, unspecified; F32.A Depression, unspecified
CPT/HCPCS: 71046; 99283

== ENCOUNTER 2024-10-22 22:03 | Emergency (ER) | payer MEDICARE ==
[~2024-10-22] VITALS: Ht 182.9 cm; Wt 84.8 kg
[~2024-10-22 22:03] MED LIST changes: +ACETAMINOPHEN-1 EAC4 PO; +AMLODIPINE BESYL5 MG PO; +BACTRIM DS TAB1 EACH PO; +CEFDINIR300 MG PO; +CIPRO500 MG PO; +ESCITALOPRAM OX20 MG; +FIORICET 50-301 EACH PO; +GUAIFEN-CODEINE10 ML PO; +LINZESS145 MCG; +MEDROL4 MG PO; +METRONIDAZOLE500 MG PO; +PREDNISONE20 MG PO; +PROTONIX20 MG PO; +QULIPTA10 MG; +VENTOLIN HFA18 GM INH
[2024-10-22] MEDS ORDERED: SODIUM CHLORIDE 0.9% 1000ML 1,000 ML IV SCH (22:15)
[2024-10-22 22:16] VITALS: PULSE 88; RESP 16; TEMP 101
[2024-10-22 23:12] LABS: LEUKOCYTE ESTERASE ,URINE TRACE (NEGATIVE); PROTEIN,URINE DIPSTICK NEGATIVE (NEGATIVE); URINE UROBILINOGEN 0.2 mg/dL (0.2 - 1)
[2024-10-22 23:28] LABS: EPITHELIAL CELLS,URINE MANY /LPF; WBC,URINE (MAN) 21-50 /HPF (0-5)
[2024-10-22 23:56] LABS: BASOPHILS % 0.6 % (0.0-1.0); EOSINOPHILS % 3.0 % (0.0-6.0); LYMPHOCYTES % 22.1 % (18.0-39.1); MONOCYTES % 9.6 % (4.4-11.3); NEUTROPHILS % 64.4 % (38.7-80.0); RED CELL DISTRIBUTION WIDTH 19.8 % (11.7-14.4)
[2024-10-23 00:15] LABS: EST GLOMERULAR FILTRATION RATE 85.0 ML/MIN (>=60)
[2024-10-23] MEDS: IBUPROFEN 600 MG TAB PO STA (00:15)
[2024-10-23] MEDS: ACETAMINOPHEN 1000 MG/100 ML IV STA (00:16)
[2024-10-23] MEDS ORDERED: CEFDINIR300 MG PO (00:44)
[2024-10-23] MEDS: POTASSIUM CHLORIDE 20 MEQ TAB CR PO STA (00:47)
[2024-10-23 01:01] VITALS: BP 134/79; PULSE 63; RESP 18; TEMP 100.4; O2SAT 97
== END 2024-10-23 01:03 | disposition home or self-care (01) ==
LOC: ER 22:11
DX: R50.9 Fever, unspecified (principal); N12 Tubulo-interstitial nephritis, not specified as acute or chronic; I10 Essential (primary) hypertension; D64.9 Anemia, unspecified; N80.9 Endometriosis, unspecified; M19.09 Primary osteoarthritis, other specified site; M06.9 Rheumatoid arthritis, unspecified; F41.9 Anxiety disorder, unspecified; F32.A Depression, unspecified; M79.7 Fibromyalgia
CPT/HCPCS: 36415; 80053; 81001; 83605; 85025; 87086; 99283; J0696